=== PATIENT | male | born 1950 | race Caucasian/White ===

== ENCOUNTER 2019-12-16 08:59 | Emergency (ER) | payer MEDICARE, OTHER ==
[2019-12-16 09:03] VITALS: TEMP 98
[2019-12-16] MEDS ORDERED: SODIUM CHLORIDE 0.9% 500 ML 500 ML IV STA (09:29)
[2019-12-16 09:39] LABS: Anisocytosis Slight; Basophils % (A) 0 %; Eosinophils # (A) 0.1 k/uL (0-0.7); Eosinophils % (A) 2 %; HCT 41.5 % (39.0-53.0); HGB 13.7 gm/dL (13.0-17.5); Lymphocytes # (A) 1.7 k/uL (1.0-4.8); Lymphocytes % (A) 25 %; MCH 33.8 pg (25.0-35.0); MCHC 32.9 g/dL (31.0-37.0); MCV 102.8 fL (80.0-100.0); Macrocytosis Moderate; Mean Platelet Volume 8.4; Monocytes # (A) 0.3 k/uL (0-1.0); Monocytes % (A) 4 %; Neutrophils # (A) 4.6 k/uL (1.3-7.7); Neutrophils % (A) 67 %; Platelet Count 252 k/uL (150-450); RBC 4.03 m/uL (4.30-5.90); RDW 16.3 % (11.5-15.5); WBC 6.9 k/uL (3.8-10.6)
--- NOTE | 2019-12-16 09:40 | ED ---
General Adult HPI - General Chief complaint: GI Bleed Stated complaint: Vomiting Blood Time Seen by Provider: 12/16/19 09:12 Source: patient, RN notes reviewed Mode of arrival: ambulatory Limitations: no limitations - History of Present Illness Initial comments: 69-year-old male with a past medical history of CAD, hyperlipidemia presents to the emergency department for a chief complaint of hemoptysis. Patient had a heart catheterization 1 week ago. Patient currently on Plavix and has been for years. Patient states that he felt like he was in congestion in his lungs and started coughing last night. Patient states he coughed up phlegm. After a few coughs he coughed up a small coin-sized bright red blood clot. Patient states this happened a couple times. Patient states that he became concerned and came to the emergency room. He does state that he was told by his doctor there is "a shadow" behind his heart and he is scheduled for a computed tomography scan on Saturday.Patient has no other complaints at this time including shortness of br eath, chest pain, abdominal pain, nausea or vomiting, headache, or visual changes. - Related Data Home Medications Medication Instructions Recorded Confirmed Aspirin EC [Ecotrin Low Dose] 81 mg PO HS 12/16/19 12/16/19 Atorvastatin [Lipitor] 20 mg PO HS 12/16/19 12/16/19 Clopidogrel [Plavix] 75 mg PO DAILY 12/16/19 12/16/19 Ferrous Sulfate [Feosol] 325 mg PO DAILY 12/16/19 12/16/19 Furosemide [Lasix] 40 mg PO Q48H 12/16/19 12/16/19 Isosorbide Mononitrate [Isosorbide 30 mg PO DAILY 12/16/19 12/16/19 Mononitrate ER] Losartan [Cozaar] 50 mg PO DAILY 12/16/19 12/16/19 Metoprolol Tartrate [Lopressor] 100 mg PO BID 12/16/19 12/16/19 Multivitamins, Thera [Multivitamin 1 tab PO DAILY 12/16/19 12/16/19 (formulary)] Pantoprazole [Protonix] 40 mg PO DAILY 12/16/19 12/16/19 Allergies Allergy/AdvReac Type Severity Reaction Status Date / Time No Known Allergies Allergy Verified 12/16/19 09:42 Review of Systems ROS Statement: Those systems with pertinent positive or pertinent negative responses have been documented in the HPI. ROS Other: All systems not noted in ROS Statement are negative. Past Medical History Past Medical History: Coronary Artery Disease (CAD), Hyperlipidemia History of Any Multi-Drug Resistant Organisms: None Reported Past Surgical History: Heart Catheterization With Stent Past Psychological History: No Psychological Hx Reported Smoking Status: Former smoker Past Alcohol Use History: Occasional Past Drug Use History: None Reported General Exam Limitations: no limitations General appearance: alert, in no apparent distress Head exam: Present: atraumatic, normocephalic, normal inspection Eye exam: Present: normal appearance, PERRL, EOMI. Absent: scleral icterus, conjunctival injection, periorbital swelling ENT exam: Present: normal exam, mucous membranes moist Neck exam: Present: normal inspection, full ROM. Absent: tenderness, meningismus, lymphadenopathy Respiratory exam: Present: normal lung sounds bilaterally. Absent: respiratory distress, wheezes, rales, rhonchi, stridor Cardiovascular Exam: Present: regular rate, normal rhythm, normal heart sounds. Absent: systolic murmur, diastolic murmur, rubs, gallop, clicks GI/Abdominal exam: Present: soft, normal bowel sounds. Absent: distended, tenderness, guarding, rebound, rigid Course Vital Signs 12/16/19 12/16/19 09:00 09:17 Temperature 98.0 F Pulse Rate 72 Respiratory 18 18 Rate Blood Pressure 141/71 O2 Sat by Pulse 97 Oximetry Medical Decision Making - Medical Decision Making Vitals are stable. CBC CMP is unremarkable. Patient has minimal elevation in lipase. Troponin within normal limits at 0.028. Slight bump is likely related to heart catheterization that was done about one week ago. Chest CT shows a right hilar mass extending along the peritracheal location with right pleural effusion and emphysema. It appears that right mainstem bronchus is encased in narrow the. There is adherent to the mediastinum with mediastinal invasion with mass effect on the superior vena cava and extension along the right peritracheal region. Patient will be admitted for pulmonology consultation and further management. - Lab Data Result diagrams: 12/16/19 09:18 12/16/19 09:18 Lab Results 12/16/19 12/16/19 12/16/19 Range/Units 09:18 09:18 09:18 WBC 6.9 (3.8-10.6) k/uL RBC 4.03 L (4.30-5.90) m/uL Hgb 13.7 (13.0-17.5) gm/dL Hct 41.5 (39.0-53.0) % MCV 102.8 H (80.0-100.0) fL MCH 33.8 (25.0-35.0) pg MCHC 32.9 (31.0-37.0) g/dL RDW 16.3 H (11.5-15.5) % Plt Count 252 (150-450) k/uL Neutrophils % 67 % Lymphocytes % 25 % Monocytes % 4 % Eosinophils % 2 % Basophils % 0 % Neutrophils # 4.6 (1.3-7.7) k/uL Lymphocytes # 1.7 (1.0-4.8) k/uL Monocytes # 0.3 (0-1.0) k/uL Eosinophils # 0.1 (0-0.7) k/uL Basophils # 0.0 (0-0.2) k/uL Anisocytosis Slight Macrocytosis Moderate PT 10.5 (9.0-12.0) sec INR 1.0 (<1.2) APTT 23.4 (22.0-30.0) sec Sodium 137 (137-145) mmol/L Potassium 4.7 (3.5-5.1) mmol/L Chloride 103 (98-107) mmol/L Carbon Dioxide 26 (22-30) mmol/L Anion Gap 8 mmol/L BUN 18 (9-20) mg/dL Creatinine 1.14 (0.66-1.25) mg/dL Est GFR (CKD-EPI)AfAm 75 (>60 ml/min/1.73 sqM) Est GFR (CKD-EPI)NonAf 65 (>60 ml/min/1.73 sqM) Glucose 117 H (74-99) mg/dL Calcium 9.1 (8.4-10.2) mg/dL Total Bilirubin 1.3 (0.2-1.3) mg/dL AST 56 (17-59) U/L ALT 59 H (4-49) U/L Alkaline Phosphatase 92 (38-126) U/L Troponin I (0.000-0.034) ng/mL NT-Pro-B Natriuret Pep pg/mL Total Protein 7.5 (6.3-8.2) g/dL Albumin 4.2 (3.5-5.0) g/dL Lipase 437 H (23-300) U/L 12/16/19 12/16/19 Range/Units 09:18 09:18 WBC (3.8-10.6) k/uL RBC (4.30-5.90) m/uL Hgb (13.0-17.5) gm/dL Hct (39.0-53.0) % MCV (80.0-100.0) fL MCH (25.0-35.0) pg MCHC (31.0-37.0) g/dL RDW (11.5-15.5) % Plt Count (150-450) k/uL Neutrophils % % Lymphocytes % % Monocytes % % Eosinophils % % Basophils % % Neutrophils # (1.3-7.7) k/uL Lymphocytes # (1.0-4.8) k/uL Monocytes # (0-1.0) k/uL Eosinophils # (0-0.7) k/uL Basophils # (0-0.2) k/uL Anisocytosis Macrocytosis PT (9.0-12.0) sec INR (<1.2) APTT (22.0-30.0) sec Sodium (137-145) mmol/L Potassium (3.5-5.1) mmol/L Chloride (98-107) mmol/L Carbon Dioxide (22-30) mmol/L Anion Gap mmol/L BUN (9-20) mg/dL Creatinine (0.66-1.25) mg/dL Est GFR (CKD-EPI)AfAm (>60 ml/min/1.73 sqM) Est GFR (CKD-EPI)NonAf (>60 ml/min/1.73 sqM) Glucose (74-99) mg/dL Calcium (8.4-10.2) mg/dL Total Bilirubin (0.2-1.3) mg/dL AST (17-59) U/L ALT (4-49) U/L Alkaline Phosphatase (38-126) U/L Troponin I 0.028 (0.000-0.034) ng/mL NT-Pro-B Natriuret Pep 439 pg/mL Total Protein (6.3-8.2) g/dL Albumin (3.5-5.0) g/dL Lipase (23-300) U/L Disposition Clinical Impression: Lung mass, Hemoptysis Disposition: ADMITTED IP TO THIS HOSP Condition: Fair Is patient prescribed a controlled substance at d/c from ED?: No Referrals: Sharad Cantu MD [Primary Care Provider] - 1-2 days Time of Disposition: 10:48
[2019-12-16 09:48] LABS: Albumin 4.2 g/dL (3.5-5.0); Calcium 9.1 mg/dL (8.4-10.2); Potassium 4.7 mmol/L (3.5-5.1); Total Bilirubin 1.3 mg/dL (0.2-1.3); Total Protein 7.5 g/dL (6.3-8.2)
[2019-12-16 09:50] LABS: Partial Thromboplastin Time 23.4 sec (22.0-30.0); Prothrombin Time 10.5 sec (9.0-12.0)
--- NOTE | 2019-12-16 10:28 | CT ---
EXAMINATION TYPE: CT chest angio for PE DATE OF EXAM: 12/16/2019 COMPARISON: Chest x-ray 12/08/2019 HISTORY: Hemoptysis, PE CT DLP: 667.6 mGycm Automated exposure control for dose reduction was used. CONTRAST: CT Chest for pulmonary embolism performed with without and with IV Contrast, patient injected with 10 0 ml mL of Isovue 370. FINDINGS: LUNGS: The lungs are remarkable for right hilar soft tissue mass, there is encasement of right upper lobe segmental pulmonary artery appears occluded, the right mainstem bronchus is also encased and poly rowed. Mass measures approximately 7 cm in cephalad to caudal dimension by 6.5 cm in transverse dimen cheikh by 6.1 cm in AP dimension, there are spiculated margins, there is adherence to the mediastinum, mediastinal invasion with mass effect on the superior vena cava and extension along the right paratra cheal region There is a right pleural effusion is some associated atelectasis. Emphysematous changes are present within the lungs. The tracheobronchial tree is patent. MEDIASTINUM: There is satisfactory enhancement of the pulmonary artery and its branches, there is no CT evidence for pulmonary embolism. There is subcarinal adenopathy, retrocaval pretracheal nodes als o enlarged. There are coronary calcifications No pericardial effusion is seen. AORTA: No additional significant abnormality is seen. OTHER: Arthropathy noted in the shoulders.. IMPRESSION: Right hilar mass extending along the paratracheal location correlates with the plain film findings, r ight pleural effusion, emphysema
[2019-12-16] MEDS ORDERED: NALOXONE 0.4 MG/ML 1 ML VIAL IV PRN (10:49)
[2019-12-16] MEDS ORDERED: SODIUM CHLORIDE 0.9% 1,000 ML IV SCH (11:00)
--- NOTE | 2019-12-16 12:07 | ED ---
Medical Decision Making - Medical Decision Making Dr. Tobias saw patient and recommended discharge home. He will stop Plavix until Dr. Tobias speaks with his asbestos remover. He will follow up with Dr. Tobias for biopsy since we cannot do biopsy as patient has been on Plavix. Patient prefers to go home instead of be discharged. Dr. Nielsen spoke with Dr. Ojeda who is aware patient is being discharged. - Lab Data Result diagrams: 12/16/19 09:18 12/16/19 09:18 Lab Results 12/16/19 12/16/19 12/16/19 Range/Units 09:18 09:18 09:18 WBC 6.9 (3.8-10.6) k/uL RBC 4.03 L (4.30-5.90) m/uL Hgb 13.7 (13.0-17.5) gm/dL Hct 41.5 (39.0-53.0) % MCV 102.8 H (80.0-100.0) fL MCH 33.8 (25.0-35.0) pg MCHC 32.9 (31.0-37.0) g/dL RDW 16.3 H (11.5-15.5) % Plt Count 252 (150-450) k/uL Neutrophils % 67 % Lymphocytes % 25 % Monocytes % 4 % Eosinophils % 2 % Basophils % 0 % Neutrophils # 4.6 (1.3-7.7) k/uL Lymphocytes # 1.7 (1.0-4.8) k/uL Monocytes # 0.3 (0-1.0) k/uL Eosinophils # 0.1 (0-0.7) k/uL Basophils # 0.0 (0-0.2) k/uL Anisocytosis Slight Macrocytosis Moderate PT 10.5 (9.0-12.0) sec INR 1.0 (<1.2) APTT 23.4 (22.0-30.0) sec Sodium 137 (137-145) mmol/L Potassium 4.7 (3.5-5.1) mmol/L Chloride 103 (98-107) mmol/L Carbon Dioxide 26 (22-30) mmol/L Anion Gap 8 mmol/L BUN 18 (9-20) mg/dL Creatinine 1.14 (0.66-1.25) mg/dL Est GFR (CKD-EPI)AfAm 75 (>60 ml/min/1.73 sqM) Est GFR (CKD-EPI)NonAf 65 (>60 ml/min/1.73 sqM) Glucose 117 H (74-99) mg/dL Calcium 9.1 (8.4-10.2) mg/dL Total Bilirubin 1.3 (0.2-1.3) mg/dL AST 56 (17-59) U/L ALT 59 H (4-49) U/L Alkaline Phosphatase 92 (38-126) U/L Troponin I (0.000-0.034) ng/mL NT-Pro-B Natriuret Pep pg/mL Total Protein 7.5 (6.3-8.2) g/dL Albumin 4.2 (3.5-5.0) g/dL Lipase 437 H (23-300) U/L 12/16/19 12/16/19 Range/Units 09:18 09:18 WBC (3.8-10.6) k/uL RBC (4.30-5.90) m/uL Hgb (13.0-17.5) gm/dL Hct (39.0-53.0) % MCV (80.0-100.0) fL MCH (25.0-35.0) pg MCHC (31.0-37.0) g/dL RDW (11.5-15.5) % Plt Count (150-450) k/uL Neutrophils % % Lymphocytes % % Monocytes % % Eosinophils % % Basophils % % Neutrophils # (1.3-7.7) k/uL Lymphocytes # (1.0-4.8) k/uL Monocytes # (0-1.0) k/uL Eosinophils # (0-0.7) k/uL Basophils # (0-0.2) k/uL Anisocytosis Macrocytosis PT (9.0-12.0) sec INR (<1.2) APTT (22.0-30.0) sec Sodium (137-145) mmol/L Potassium (3.5-5.1) mmol/L Chloride (98-107) mmol/L Carbon Dioxide (22-30) mmol/L Anion Gap mmol/L BUN (9-20) mg/dL Creatinine (0.66-1.25) mg/dL Est GFR (CKD-EPI)AfAm (>60 ml/min/1.73 sqM) Est GFR (CKD-EPI)NonAf (>60 ml/min/1.73 sqM) Glucose (74-99) mg/dL Calcium (8.4-10.2) mg/dL Total Bilirubin (0.2-1.3) mg/dL AST (17-59) U/L ALT (4-49) U/L Alkaline Phosphatase (38-126) U/L Troponin I 0.028 (0.000-0.034) ng/mL NT-Pro-B Natriuret Pep 439 pg/mL Total Protein (6.3-8.2) g/dL Albumin (3.5-5.0) g/dL Lipase (23-300) U/L Disposition Clinical Impression: Lung mass, Hemoptysis Disposition: HOME SELF-CARE Condition: Fair Is patient prescribed a controlled substance at d/c from ED?: No Time of Disposition: 12:07
--- NOTE | 2019-12-16 12:32 | P.CNPUL ---
History of Present Illness Consult date: 12/16/19 Reason for consult: lung mass History of present illness: 69-year-old male patient who presented to emergency department today with hemoptysis. The patient saw me in the office approximately a week ago and a chest x-ray was done the office showed right hilar prominence. Based on that, I scheduled this patient to have an outpatient CAT scan of the chest. Meanwhile, the patient started having hemoptysis small amounts and he coughed out bloody mucus and for that reason the patient came into the emergency department today and the patient underwent a CAT scan of the chest that showed a mass measuring 7 cm in size by 6.5 cm in size with spiculated margins in the right upper lobe area adherent to the mediastinum causing some yeast on invasion and mass effect on the SVC and extension into the right paratracheal region. There is also smal l right-sided pleural effusion. His background emphysema. Note that the patient underwent a recent cardiac catheterization and he is currently on examination of aspirin and Plavix. He underwent stenting of the LAD. His fishery biologist Dr. Dwayne Langston. This patient's is known to have an extensive cardiac history. He is known to have CAD and he has undergone multiple cardiac catheterizations the past and he ultimately required a coronary artery bypass surgery in 2017. Subsequently, he started complaining of some exertional dyspnea. He another cardiac catheterization and this was done recently and the patient was found to have some disease in the LAD and he is scheduled to underwent another cardiac catheterization with stenting by Dr. Dwayne Langston. He is currently on a combination of aspirin and Plavix. I reviewed the records and the patient has had an echocardiogram that showed an ejection fraction of 42% along with some mild aortic sclerosis without stenosis. There is some mild mitral regurgitation, mild LVH, mild aortic regurgitation. His carotid Dopplers showed nonocclusive disease. He had an abnormal chest x-ray back in 2017 showing some atelectasis in the left lower lobe. I repeated the chest x-ray today in my office and there is obvious right suprahilar fullness consistent with an underlying mass. Note that he has an extensive smoking history and he quit smoking back in 2013 Review of Systems Constitutional: Denies chills, Denies fever Eyes: denies as per HPI, denies blurred vision, denies bulging eye, denies decreased vision, denies diplopia, denies discharge, denies dry eye, denies irritation, denies itching, denies pain, denies photophobia, denies loss of peripheral vision, denies loss of vision, denies tunnel vision/blind spots Ears: deny: decreased hearing, ear discharge, earache, tinnitus Ears, nose, mouth and throat: Denies headache, Denies sore throat Breasts: absent: as per HPI, gynecomastia Cardiovascular: Reports decreased exercise tolerance, Reports dyspnea on exertion Respiratory: Reports cough, Reports dyspnea, Reports hemoptysis Gastrointestinal: Reports as per HPI Genitourinary: Reports as per HPI Musculoskeletal: Reports as per HPI Musculoskeletal: absent: ankle pain, ankle stiffness, ankle swelling Integumentary: Reports as per HPI Neurological: Reports as per HPI Psychiatric: Reports as per HPI Endocrine: Reports as per HPI Hematologic/Lymphatic: Reports as per HPI Allergic/Immunologic: Reports as per HPI Past Medical History Past Medical History: Coronary Artery Disease (CAD), Chest Pain / Angina, COPD, GERD/Reflux, Hyperlipidemia, Hypertension, Vascular Disorder Additional Past Medical History / Comment(s): Spondylolithiasis L5-S1, back pain, generalized swelling History of Any Multi-Drug Resistant Organisms: None Reported Past Surgical History: Back Surgery, Coronary Bypass/CABG, Heart Catheterization, Heart Catheterization With Stent, Orthopedic Surgery Additional Past Surgical History / Comment(s): 1969 L knee injury with surgery, 1987 vasectomy, 1989 cervical surgery with bont donar from hip, PCI with stents, L shoulder surgery d/t injury, bilateral carpal tunnel releases, 2011 AAA repair, post AAA incision infection/muscle flap, 2013 stent R leg behind knee, 2 lumbar spine surgeries, 2017 CABG-3 vessel Past Anesthesia/Blood Transfusion Reactions: No Reported Reaction Additional Past Anesthesia/Blood Transfusion Reaction / Comment(s): Pt has clausterphobia. Date of Last Stent Placement:: 12/09/19 Cait Cool Past Psychological History: No Psychological Hx Reported Additional Psychological History / Comment(s): Pt rsides with his spouse of 33 yrs. He is independent. Smoking Status: Former smoker Past Alcohol Use History: Occasional Additional Past Alcohol Use History / Comment(s): Pt started smoking in 1973 and over the years was a cigarette smoker 1.5 ppd or cigar smoker-up th 4 a day. Pt quit smoking in 2011. Past Drug Use History: None Reported - Past Family History Father Family Medical History: Cancer Additional Family Medical History / Comment(s): Father of small cell lung cancer. Mother Family Medical History: Cancer Additional Family Medical History / Comment(s): Mother had leukemia. Medications and Allergies Home Medications Medication Instructions Recorded Confirmed Type Aspirin EC [Ecotrin Low Dose] 81 mg PO HS 12/16/19 12/16/19 History Atorvastatin [Lipitor] 20 mg PO HS 12/16/19 12/16/19 History Clopidogrel [Plavix] 75 mg PO DAILY 12/16/19 12/16/19 History Ferrous Sulfate [Feosol] 325 mg PO DAILY 12/16/19 12/16/19 History Furosemide [Lasix] 40 mg PO Q48H 12/16/19 12/16/19 History Isosorbide Mononitrate [Isosorbide 30 mg PO DAILY 12/16/19 12/16/19 History Mononitrate ER] Losartan [Cozaar] 50 mg PO DAILY 12/16/19 12/16/19 History Metoprolol Tartrate [Lopressor] 100 mg PO BID 12/16/19 12/16/19 History Multivitamins, Thera [Multivitamin 1 tab PO DAILY 12/16/19 12/16/19 History (formulary)] Pantoprazole [Protonix] 40 mg PO DAILY 12/16/19 12/16/19 History Allergies Allergy/AdvReac Type Severity Reaction Status Date / Time No Known Allergies Allergy Verified 12/16/19 09:42 Physical Exam Vitals: Vital Signs Temp Pulse Resp BP Pulse Ox 12/16/19 09:17 18 12/16/19 09:00 98.0 F 72 18 141/71 97 Intake and Output 12/15/19 12/16/19 12/16/19 22:59 06:59 14:59 Other: Weight 111.584 kg General Appearance no diaphoresis, no respiratory distress, speech not interrupted by breaths, no dyspnea, no pallor, not cachectic, well nourished, appears well, obesity HEENT no pursed lip breathing, no jugular venous distention, no mucous membrane cyanosis, no perioral cyanosis, mallampati classification: class 1, Mallampati Classification: Class 4 Chest no barrel chest, no retractions, no sternocleidomastoid muscle contractions, no supraclavicular retractions, no intercostal retractions, no prolonged expiratory wheezing, no decreased air movement, no rhonchi, no hyperinflation, (normal) adventitious sounds: rales / crackles: bilaterally: midlung lora, decreased air movement ( scar over the anterior chest area) Heart no right ventricular heave, no distant heart sounds, no s3 gallop, (normal ) jugular vein: jugular venous distention: by 0cm, (normal) jugular vein GI bowel sounds: hyperactive (borborygmi), bowel sounds: diminished or absent (large mid abdominal incision/scar from the previous AAA repair surgery.) Extremities no cyanosis, no clubbing, no edema Neurologic no decreased mental status, no somnolence, no confusion Assisstive Devices: ambulates with no assitive devices Gait and Mobility: gait WNL, full weight bearing Results - Laboratory Findings CBC and BMP: 12/16/19 09:18 12/16/19 09:18 PT/INR, D-dimer PT 10.5 sec (9.0-12.0) 12/16/19 09:18 INR 1.0 (<1.2) 12/16/19 09:18 Abnormal lab findings: Abnormal Labs 12/16/19 12/16/19 09:18 09:18 RBC 4.03 L MCV 102.8 H RDW 16.3 H Glucose 117 H ALT 59 H Lipase 437 H - Diagnostic Findings CT scan - chest: image reviewed Assessment and Plan Plan: 1 large right upper lobe mass with occlusion of the right upper lobe bronchus as evident on the CAT scan of the chest, and the patient has a mass measuring 7 x 6.5 cm in size with spiculated margins adherent to the mediastinum and there is obvious mediastinal invasion a mass effect on the SVC and extension to the right paratracheal area. A small right-sided pleural effusions also seen. This is very much consistent with underlying primary bronchogenic cancer. No clinical signs of SVC syndrome. The patient presented with hemoptysis. He is on a combination of aspirin and Plavix and he has undergone a recent cardiac catheterization and stenting 2 hemoptysis secondary to above 3 exertional dyspnea 4 coronary artery disease with recent cardiac catheterization and stenting insertion, and the patient is post coronary artery bypass surgery that was performed 2017. He was found to have a recent LAD lesion for which he underwent stenting. 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 This is likely secondary to right upper lobe mass and further complicated by the intake of dual antiplatelet agents including aspirin and Plavix. I will see the patient will need a bronchoscopy for airway inspection and biopsy to establish the definite diagnosis. I'm going to discuss is his fishery biologist and asked the patient to stop the Plavix for a few days if possible to have the biopsy done without any major complications or bleeding. If not possible, we'll may be able to do this while the patient is still on Plavix and this obviously will put him at a high risk of bleeding. The fundus will be done after talking to his fishery biologist knowing that he has a fresh stents. I do not see a reason why the patient needs to be kept in the [facility] for now. His hemoptysis is minimal. I asked to come back to the hospital and there is a significant worsening in his hemoptysis. He lives close by in the [place] area. Meanwhile, I'm contacting his fishery biologist and I'm going to set him up for a outpatient bronchoscopy. This will be done as earlier this week or next week. Case discussed with emergency physician. Case discussed with the family. The family is agreeable.
[2019-12-16 12:37] VITALS: BP 140/81; PULSE 65; RESP 16
== END 2019-12-16 12:39 | disposition home or self-care (01) ==
LOC: EC 08:59 → 5NMEDONC 10:49 → UNDOADMIN 10:49 → EC 12:39
DX: J90 Pleural effusion, not elsewhere classified (principal); J43.9 Emphysema, unspecified; R91.8 Other nonspecific abnormal finding of lung field; K92.0 Hematemesis; I25.10 Atherosclerotic heart disease of native coronary artery without angina pectoris; E78.5 Hyperlipidemia, unspecified; Z95.5 Presence of coronary angioplasty implant and graft; Z87.891 Personal history of nicotine dependence; Z79.82 Long term (current) use of aspirin; Z79.02 Long term (current) use of antithrombotics/antiplatelets; Z79.899 Other long term (current) drug therapy
CPT/HCPCS: 36415; 93005; 83880; 80053; 83690; 84484; 85025; 85610; 85730; 71275; 99285; 96360; Q9967

== ENCOUNTER 2019-12-17 11:35 | Day surgery (SDC) | payer MEDICARE, OTHER ==
[~2019-12-17 11:35] MED LIST: ALBUTEROL NEB (CONC) 2.5 MG/0.5 ML INHALATION ONE; LACTATED RINGERS 1,000 ML IV SCH; LIDOCAINE 2% (PF) 20 MG/ML 5 ML VIAL INHALATION ONE; LIDOCAINE VISCOUS 300 MG/15 ML CUP MUCOUS MEM ONE; SODIUM CHLORIDE 0.9% 1,000 ML IV SCH
[2019-12-17 12:27] VITALS: RESP 16
[2019-12-17] MEDS ORDERED: LIDOCAINE 1% (10MG/ML) FOR IV START INTRADERMA ONE (12:27)
[2019-12-17] MEDS ORDERED: PROPOFOL 10 MG/ML 20 ML VIAL IV ONE (14:45)
[2019-12-17] MEDS ORDERED: LIDOCAINE 1% INJ 10MG/ML (20 ML MDV) ONE (14:45)
[2019-12-17] MEDS ORDERED: fentaNYL (PF) 50 MCG/ML 2 ML AMP ONE (14:45)
[2019-12-17] MEDS ORDERED: SUCCINYLCHOLINE CHLORIDE 100 MG/5 ML SYR IV ONE (14:45)
[2019-12-17] MEDS ORDERED: MIDAZOLAM 2 MG/2 ML VIAL ONE (14:45)
--- NOTE | 2019-12-17 15:28 | P.PCN ---
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 The right upper lobe bronchus is near completely occluded with endobronchial tumor. Limited narrowing of the proximal bronchus intermedius was also visualized. Procedure(s) Performed: Flexible bronchoscopy, endobronchial biopsy of the right upper lobe tumor, bronchioloalveolar lavage of the right upper lobe. Anesthesia: MITZY RAMON Surgeon: Eric Tobias Edge Roller #1: Lexy Pablo Estimated Blood Loss (ml): 5 Pathology: other Condition: stable Disposition: same day Operative Findings: This procedure was done and operating room. The procedure was done under general anesthesia. The patient was intubated and placed on a mechanical ventilator by anesthesia. After achieving adequate sedation, and anesthesia, an adapter was tested orotracheal tube and following that the flexible bronchoscope was introduced into the lower trachea. Examination of the distal trachea, and examination of the left side of the lung including the left mainstem bronchus, left upper lobe bronchus, left lower lobe bronchus were all within normal limits and there was no abnormality seen. Bronchoscope was then moved to the right side. Right mainstem bronchus was within normal limits. There was some loose liquidy bloody secretions retained in the distal right mainstem bronchus. The right upper lobe bronchus was near completely occluded with endobronchial tumor. The various segments of the right upper lobe bronchus were not accurate the scene. However, he was obvious that the segments were all infiltrated with tumor as there was significant endobronchial growth and abnormalities with polypoid lesions occupying the airway and the surface of the lesion was quite vascular. The proximal bronchus intermedius was slightly narrowed from the lateral wall. Nevertheless no major anatomic obstruction was noted. Examination of the right middle lobe bronchus and the right lower lobe bronchus and the various segments were all within normal limits. The bronchoscope was then moved to the right upper lobe and under direct visualization, and the bronchial biopsies of the right upper lobe was done. Several biopsies were obtained. No major bleeding was encountered and total amount of bleeding was less than 5 mL. Following that, performed the bronchioloalveolar lavage of the right upper lobe. The right upper lobe was infiltrated with saline with total of 60 mL of fluid was infused and 20 mL was suctioned back. Aspirate was bloody. I completed the procedure. No major bleeding was encountered. The patient was extubated and transferred recovery in stable condition. The patient will be asked to continue the aspirin and Plavix. The patient was asked to contact me back if there is any significant hemoptysis. The source of the hemoptysis in the right upper lobe tumor and the surface of the tumor being vascular. There is no evidence of any acute bleeds. The patient was seen back in the office in a weeks time to discuss the results of the findings.
[2019-12-17 15:38] VITALS: TEMP 96.6
[2019-12-17 16:27] VITALS: BP 131/72; PULSE 64
== END 2019-12-17 16:49 | disposition home or self-care (01) ==
LOC: ORWHC2ENDO 11:35
PROVIDERS: ATTEND Internal Medicine Critical Care Medicine
DX: C34.11 Malignant neoplasm of upper lobe, right bronchus or lung (principal); I25.10 Atherosclerotic heart disease of native coronary artery without angina pectoris; I10 Essential (primary) hypertension; J44.9 Chronic obstructive pulmonary disease, unspecified; E78.5 Hyperlipidemia, unspecified; K21.9 Gastro-esophageal reflux disease without esophagitis; Z88.8 Allergy status to other drugs, medicaments and biological substances; Z95.5 Presence of coronary angioplasty implant and graft; Z79.02 Long term (current) use of antithrombotics/antiplatelets; Z79.899 Other long term (current) drug therapy; Z86.79 Personal history of other diseases of the circulatory system
CPT/HCPCS: 88108; 88305; 87635; 31625; 31624; J2250; J2001; J3010; J0330; J2704; 88341; 88342

== ENCOUNTER → 2019-12-25 | Outpatient (CLI) | payer MEDICARE, OTHER ==
--- NOTE | 2019-12-27 15:48 | PE ---
Nuclear medicine PET/CT HISTORY: Lung nodule, initial Patient received 12.7 mCi F-18 FDG intravenously in delayed scanning was performed from the skull bas e to the mid thighs. Localization and attenuation correction CT scan was performed. Correlation to chest CT dated 12/16/2019 neck and CHEST: There is corresponding hypermetabolic uptake at the level of patient's right hilar ma ss, retrocaval pretracheal node, subcarinal adenopathy. There is no supraclavicular or cervical adeno raysa. Asymmetric uptake at the level of the vocal cord on the left could be indicative of right-side d vocal cord paralysis. There is been some interval development of abnormal increased attenuation and associated hypermetabolic uptake in the right upper lobe anteriorly, possibly related to postobstruc tive changes or local spread of carcinoma, the interstitium is increased, there is nodularity present in the right upper lobe which is not seen on prior exam and there is some associated uptake present. Patient's right pleural effusion is again seen but is small. There are dense coronary artery calcifi cations present. ABDOMEN: There is no evident adrenal mass or retroperitoneal adenopathy. No evident liver mass or asc ites, no suspicious uptake. Extensive diverticular change noted in the sigmoid colon. Osseous structures: Postop changes are noted to the lumbar spine. There is some streak artifact prese nt. No suspicious uptake. IMPRESSION: There is been some interval progression in abnormal nodularity, with associated hypermeta bolic uptake as compared to prior chest CT. Additional findings above.
== END | disposition home or self-care (01) ==
LOC: RADPETMAIN 11:50
PROVIDERS: ATTEND Internal Medicine Critical Care Medicine
DX: R91.8 Other nonspecific abnormal finding of lung field (principal); I25.10 Atherosclerotic heart disease of native coronary artery without angina pectoris; J90 Pleural effusion, not elsewhere classified; K57.30 Diverticulosis of large intestine without perforation or abscess without bleeding; Z98.890 Other specified postprocedural states
CPT/HCPCS: 78815; A9552

== ENCOUNTER → 2019-12-28 | Outpatient (CLI) | payer MEDICARE, OTHER ==
--- NOTE | 2019-12-28 09:48 | CT ---
EXAMINATION TYPE: CT brain w con DATE OF EXAM: 12/28/2019 COMPARISON: None HISTORY: Lung cancer CT DLP: 1159 mGycm Automated exposure control for dose reduction was used. CONTRAST: Performed with IV Contrast, patient injected with 100 mL of Isovue 300. FINDINGS: No distinct enhancing lesions are seen. If symptoms persist consider MRI. The ventricles basal cister ns and sulci overlying the cerebral convexities demonstrate mild enlargement not unusual for this pat ient's age group. Bony calvarium is intact. IMPRESSION: NO DISTINCT ENHANCING LESIONS APPRECIATED AT THIS TIME.
== END | disposition home or self-care (01) ==
LOC: RADCTMAIN 08:24
PROVIDERS: ATTEND Internal Medicine Hematology & Oncology
DX: C34.11 Malignant neoplasm of upper lobe, right bronchus or lung (principal)
CPT/HCPCS: 82565; 84520; 70460; 36415; Q9967

== ENCOUNTER 2020-03-05 17:22 | Inpatient (IN) | payer MEDICARE, OTHER ==
--- NOTE | 2020-03-05 17:51 | ED ---
General Adult HPI - General Chief complaint: Fever Stated complaint: fever/lung cancer Time Seen by Provider: 03/05/20 17:50 Source: patient, family Mode of arrival: ambulatory Limitations: no limitations - History of Present Illness Initial comments: Patient presents the ED with his for evaluation. Patient states that he has developed a fever today. Patient also states that he has had right calf pain and swelling for the past 2-3 days. Patient's states that the patient was undergoing chemotherapy, as well as radiation therapy, for treatment of lung cancer, and she states that his last chemotherapy treatment was 15 days ago. Patient denies taking any antipyretic medication today. Patient admits to having mild, chronic and unchanged dyspnea. Patient denies having any other symptoms or complaints. Patient denies trauma or injury, headache, focal numbness/weakness/neuro deficit, neck pain or stiffness, otalgia, sore throat, nasal congestion or discharge, cough or cold symptoms, chest pain, dizziness, abdominal pain, nausea/vomiting/diarrhea, dysuria/urinary frequency/hematuria/urinary symptoms, or any other symptoms or complaints. - Related Data Home Medications Medication Instructions Recorded Confirmed Aspirin EC [Ecotrin Low Dose] 81 mg PO HS 12/16/19 12/17/19 Atorvastatin [Lipitor] 20 mg PO HS 12/16/19 12/17/19 Clopidogrel [Plavix] 75 mg PO DAILY 12/16/19 12/17/19 Ferrous Sulfate [Feosol] 325 mg PO DAILY 12/16/19 12/17/19 Furosemide [Lasix] 40 mg PO Q48H 12/16/19 12/17/19 Isosorbide Mononitrate [Isosorbide 30 mg PO DAILY 12/16/19 12/17/19 Mononitrate ER] Losartan [Cozaar] 50 mg PO DAILY 12/16/19 12/17/19 Metoprolol Tartrate [Lopressor] 100 mg PO BID 12/16/19 12/17/19 Multivitamins, Thera [Multivitamin 1 tab PO DAILY 12/16/19 12/17/19 (formulary)] Pantoprazole [Protonix] 40 mg PO DAILY 12/16/19 12/17/19 Allergies Allergy/AdvReac Type Severity Reaction Status Date / Time No Known Allergies Allergy Verified 03/05/20 17:29 Review of Systems ROS Statement: Those systems with pertinent positive or pertinent negative responses have been documented in the HPI. ROS Other: All systems not noted in ROS Statement are negative. Past Medical History Past Medical History: Coronary Artery Disease (CAD), Chest Pain / Angina, COPD, GERD/Reflux, Hyperlipidemia, Hypertension, Vascular Disorder Additional Past Medical History / Comment(s): Spondylolithiasis L5-S1, back pain, generalized swelling History of Any Multi-Drug Resistant Organisms: None Reported Past Surgical History: Back Surgery, Coronary Bypass/CABG, Heart Catheteriz ation, Heart Catheterization With Stent, Orthopedic Surgery Additional Past Surgical History / Comment(s): 1969 L knee injury with surgery, 1987 vasectomy, 1989 cervical surgery with bont donar from hip, PCI with stents, L shoulder surgery d/t injury, bilateral carpal tunnel releases, 2011 AAA repair, post AAA incision infection/muscle flap, 2012 stent R leg behind knee, 2 lumbar spine surgeries, 2017 CABG-3 vessel Past Anesthesia/Blood Transfusion Reactions: No Reported Reaction Additional Past Anesthesia/Blood Transfusion Reaction / Comment(s): Pt has clausterphobia. Date of Last Stent Placement:: 12/09/19 Cait Cool Past Psychological History: No Psychological Hx Reported Smoking Status: Former smoker Past Alcohol Use History: Occasional Past Drug Use History: None Reported - Past Family History Father Family Medical History: Cancer Additional Family Medical History / Comment(s): Father of small cell lung cancer. Mother Family Medical History: Cancer Additional Family Medical History / Comment(s): Mother had leukemia. General Exam Limitations: no limitations General appearance: alert, in no apparent distress Head exam: Present: atraumatic, normocephalic Eye exam: Present: normal appearance, EOMI ENT exam: Present: normal oropharynx, mucous membranes moist, TM's normal bilaterally Neck exam: Present: other (Trachea is in midline). Absent: tenderness, meningismus Respiratory exam: Present: normal lung sounds bilaterally. Absent: respiratory distress, wheezes, rales, rhonchi Cardiovascular Exam: Present: normal rhythm, tachycardia, normal heart sounds, other (Normal radial pulses bilaterally) GI/Abdominal exam: Present: soft. Absent: distended, tenderness, guarding Extremities exam: Present: full ROM, other (Mild right calf swelling and tenderness; no right lower extremity erythema, warmth, open wound or crepitation is appreciated; negative Homans sign bilaterally). Absent: pedal edema Neurological exam: Present: alert, oriented X3. Absent: motor sensory deficit Skin exam: Present: warm, dry, intact, normal color Course Vital Signs 03/05/20 03/05/20 03/05/20 17:25 18:57 19:32 Temperature 101.2 F H 102.3 F H Pulse Rate 120 H 105 H 112 H Respiratory 20 22 20 Rate Blood Pressure 131/91 116/97 109/61 O2 Sat by Pulse 100 95 93 L Oximetry 03/05/20 20:23 Temperature 99.3 F Pulse Rate 103 H Respiratory 20 Rate Blood Pressure 109/61 O2 Sat by Pulse 96 Oximetry - Reevaluation(s) Reevaluation #1: 03/05/20 20:34 Case, H&P and test results were discussed with Dr. Swift. He accepts hospital admission. He recommends oncology consultation. He recommends anticoagulation with IV heparin bolus and drip. He recommends cefepime 1 g IV every 12 hours for treatment of possible pneumonia. He has no further recommendations at this time. 03/05/20 20:40 Patient denies development of any new symptoms while in the ED. Patient remains alert and breathing comfortably. Patient and are aware of the patient's test results and my discussion with Dr. Swift as above. They both agree with hospital admission at this time. Medical Decision Making - Medical Decision Making I suspect that the patient's fever may be secondary to pneumonia given his right upper lobe interstitial infiltrate on chest x-ray. Patient is not leukopenic or neutropenic. Patient is also noted to have an extensive right leg DVT, and he has been started on IV heparin treatment. Patient was given IV cefepime in the ED as well. Dr. Swift has accepted hospital admission. - Lab Data Result diagrams: 03/05/20 18:22 03/05/20 18:22 Lab Results 03/05/20 03/05/20 03/05/20 Range/Units 18:22 18:22 18:22 WBC 4.9 (3.8-10.6) k/uL RBC 2.47 L (4.30-5.90) m/uL Hgb 8.3 L (13.0-17.5) gm/dL Hct 25.5 L (39.0-53.0) % MCV 103.4 H (80.0-100.0) fL MCH 33.6 (25.0-35.0) pg MCHC 32.5 (31.0-37.0) g/dL RDW 18.3 H (11.5-15.5) % Plt Count 206 (150-450) k/uL Neutrophils % 74 % Lymphocytes % 9 % Monocytes % 13 % Eosinophils % 0 % Basophils % 0 % Neutrophils # 3.6 (1.3-7.7) k/uL Lymphocytes # 0.4 L (1.0-4.8) k/uL Monocytes # 0.6 (0-1.0) k/uL Eosinophils # 0.0 (0-0.7) k/uL Basophils # 0.0 (0-0.2) k/uL Hypochromasia Moderate Poikilocytosis Moderate Anisocytosis Slight Macrocytosis Moderate PT (9.0-12.0) sec INR (<1.2) APTT (22.0-30.0) sec Sodium 133 L (137-145) mmol/L Potassium 4.7 (3.5-5.1) mmol/L Chloride 100 (98-107) mmol/L Carbon Dioxide 27 (22-30) mmol/L Anion Gap 6 mmol/L BUN 20 (9-20) mg/dL Creatinine 1.04 (0.66-1.25) mg/dL Est GFR (CKD-EPI)AfAm 84 (>60 ml/min/1.73 sqM) Est GFR (CKD-EPI)NonAf 72 (>60 ml/min/1.73 sqM) Glucose 117 H (74-99) mg/dL Plasma Lactic Acid Osmani 1.5 (0.7-2.0) mmol/L Calcium 8.7 (8.4-10.2) mg/dL Total Bilirubin 1.0 (0.2-1.3) mg/dL AST 27 (17-59) U/L ALT 16 (4-49) U/L Alkaline Phosphatase 70 (38-126) U/L Total Protein 6.0 L (6.3-8.2) g/dL Albumin 3.3 L (3.5-5.0) g/dL Urine Color Urine Appearance (Clear) Urine pH (5.0-8.0) Ur Specific [place] (1.001-1.035) Urine Protein (Negative) Urine Glucose (UA) (Negative) Urine Ketones (Negative) Urine Blood (Negative) Urine Nitrite (Negative) Urine Bilirubin (Negative) Urine Urobilinogen (<2.0) mg/dL Ur Leukocyte Esterase (Negative) Influenza Type A RNA (Not Detectd) Influenza Type B (PCR) (Not Detectd) 03/05/20 03/05/20 03/05/20 Range/Units 18:22 18:22 18:56 WBC (3.8-10.6) k/uL RBC (4.30-5.90) m/uL Hgb (13.0-17.5) gm/dL Hct (39.0-53.0) % MCV (80.0-100.0) fL MCH (25.0-35.0) pg MCHC (31.0-37.0) g/dL RDW (11.5-15.5) % Plt Count (150-450) k/uL Neutrophils % % Lymphocytes % % Monocytes % % Eosinophils % % Basophils % % Neutrophils # (1.3-7.7) k/uL Lymphocytes # (1.0-4.8) k/uL Monocytes # (0-1.0) k/uL Eosinophils # (0-0.7) k/uL Basophils # (0-0.2) k/uL Hypochromasia Poikilocytosis Anisocytosis Macrocytosis PT 13.1 H (9.0-12.0) sec INR 1.3 H (<1.2) APTT 22.2 (22.0-30.0) sec Sodium (137-145) mmol/L Potassium (3.5-5.1) mmol/L Chloride (98-107) mmol/L Carbon Dioxide (22-30) mmol/L Anion Gap mmol/L BUN (9-20) mg/dL Creatinine (0.66-1.25) mg/dL Est GFR (CKD-EPI)AfAm (>60 ml/min/1.73 sqM) Est GFR (CKD-EPI)NonAf (>60 ml/min/1.73 sqM) Glucose (74-99) mg/dL Plasma Lactic Acid Osmani (0.7-2.0) mmol/L Calcium (8.4-10.2) mg/dL Total Bilirubin (0.2-1.3) mg/dL AST (17-59) U/L ALT (4-49) U/L Alkaline Phosphatase (38-126) U/L Total Protein (6.3-8.2) g/dL Albumin (3.5-5.0) g/dL Urine Color Yellow Urine Appearance Clear (Clear) Urine pH 7.5 (5.0-8.0) Ur Specific [place] 1.020 (1.001-1.035) Urine Protein Trace H (Negative) Urine Glucose (UA) Negative (Negative) Urine Ketones Negative (Negative) Urine Blood Negative (Negative) Urine Nitrite Negative (Negative) Urine Bilirubin Negative (Negative) Urine Urobilinogen 4.0 (<2.0) mg/dL Ur Leukocyte Esterase Negative (Negative) Influenza Type A RNA Not Detected (Not Detectd) Influenza Type B (PCR) Not Detected (Not Detectd) - Radiology Data Radiology results: report reviewed (Chest x-ray: No definite acute lung disease, minimal interstitial infiltrate right upper lobe; right lower extremity venous duplex ultrasound: Positive for DVT, proximal femoral vein through proximal calf veins) Disposition Clinical Impression: Acute febrile illness, Right leg DVT, Anemia Narrative: Possible pneumonia Disposition: ADMITTED IP TO THIS HOSP Condition: Stable Is patient prescribed a controlled substance at d/c from ED?: No Referrals: Sharad Cantu MD [Primary Care Provider] - 1-2 days Time of Disposition: 20:42
[2020-03-05] MEDS ORDERED: ACETAMINOPHEN TAB 500 MG TAB PO STA (18:01)
[2020-03-05 18:32] LABS: Anisocytosis Slight; Basophils % (A) 0 %; Eosinophils % (A) 0 %; HCT 25.5 % (39.0-53.0); HGB 8.3 gm/dL (13.0-17.5); Hypochromasia Moderate; Lymphocytes # (A) 0.4 k/uL (1.0-4.8); Lymphocytes % (A) 9 %; MCH 33.6 pg (25.0-35.0); MCHC 32.5 g/dL (31.0-37.0); MCV 103.4 fL (80.0-100.0); Macrocytosis Moderate; Mean Platelet Volume 7.5; Monocytes # (A) 0.6 k/uL (0-1.0); Monocytes % (A) 13 %; Neutrophils # (A) 3.6 k/uL (1.3-7.7); Neutrophils % (A) 74 %; Platelet Count 206 k/uL (150-450); Poikilocytosis Moderate; RBC 2.47 m/uL (4.30-5.90); RDW 18.3 % (11.5-15.5); WBC 4.9 k/uL (3.8-10.6)
[2020-03-05 18:40] LABS: INR 1.3 (<1.2); Partial Thromboplastin Time 22.2 sec (22.0-30.0); Prothrombin Time 13.1 sec (9.0-12.0)
[2020-03-05 18:43] LABS: Albumin 3.3 g/dL (3.5-5.0); Calcium 8.7 mg/dL (8.4-10.2); Potassium 4.7 mmol/L (3.5-5.1)
--- NOTE | 2020-03-05 18:57 | XR ---
EXAMINATION TYPE: XR chest 2V DATE OF EXAM: 03/05/2020 COMPARISON: 12/08/2019 HISTORY: Fever TECHNIQUE: FINDINGS: There is no heart failure nor confluent pneumonic infiltrate. Costophrenic angles are clear . There is no pleural effusion. The bony thorax is intact. There are chest leads. IMPRESSION: No definite acute lung disease. Minimal interstitial infiltrate right upper lobe. There i s decrease in the right pulmonary hilum compared to old exam.
[2020-03-05 19:09] LABS: Appearance,Urine Clear (Clear); Bilirubin,Urine Negative (Negative); Blood,Urine Negative (Negative); Color,Urine Yellow; Glucose,Urine (UA) Negative (Negative); Ketones,Urine Negative (Negative); Leukocyte Esterase,Urine Negative (Negative); Nitrite,Urine Negative (Negative); PH, Urine 7.5 (5.0-8.0); Protein,Urine Trace (Negative)
[2020-03-05] MEDS ORDERED: IBUPROFEN 600 MG TAB PO STA (19:36)
--- NOTE | 2020-03-05 19:42 | US ---
EXAMINATION TYPE: US venous doppler duplex LE RT DATE OF EXAM: 03/05/2020 6:27 PM COMPARISON: NONE CLINICAL HISTORY: right calf pain/swelling. Right leg swelling x couple days, patient on blood thinne rs SIDE PERFORMED: Right TECHNIQUE: The lower extremity deep venous system is examined utilizing real time linear array sonog kacey with graded compression, doppler sonography and color-flow sonography. VESSELS IMAGED: External Iliac Vein (EIV) Common Femoral Vein Deep Femoral Vein Greater Saphenous Vein * Femoral Vein Popliteal Vein Small Saphenous Vein * Proximal Calf Veins (* superficial vessels) Right Leg: Positive for DVT, proximal femoral vein through proximal calf veins IMPRESSION: There is evidence of acute deep vein thrombosis in the femoral and popliteal and tibial v eins.
[2020-03-05] MEDS ORDERED: ENOXAPARIN 100 MG/ML SYRINGE SQ STA (20:23)
[2020-03-05] MEDS ORDERED: HEPARIN SODIUM,PORCINE 10,000 UNIT/ML 1 ML VIAL IV ONE (20:36)
[2020-03-05] MEDS ORDERED: HEPARIN SODIUM,PORCINE 5,000 UNIT/ML 1 ML VIAL IV PRN (20:36)
[2020-03-05] MEDS ORDERED: CEFEPIME 1 GM in SODIUM CHLORIDE 0.9% 50 ML IVPB STA (20:36)
[2020-03-05] MEDS: HEPARIN SOD,PORK IN 0.45% NACL 25,000 UNIT in 0.45% NACL 1 250ML.BAG IV SCH (20:53)
[2020-03-05] MEDS: ATORVASTATIN 20 MG TAB PO SCH (22:43)
[2020-03-05] MEDS: ASPIRIN 81 MG PO SCH (22:43)
[2020-03-05] MEDS: METOPROLOL TARTRATE 50 MG TAB PO SCH (22:43)
[2020-03-05] MEDS: HYDROcodone/APAP 15 ML SOLUTION PO PRN (22:43)
[2020-03-06 03:38] LABS: Albumin 2.9 g/dL (3.5-5.0); Calcium 8.5 mg/dL (8.4-10.2); Potassium 3.9 mmol/L (3.5-5.1); Total Bilirubin 0.8 mg/dL (0.2-1.3); Total Protein 5.7 g/dL (6.3-8.2)
[2020-03-06 03:46] LABS: Anisocytosis Slight; HCT 25.1 % (39.0-53.0); HGB 7.9 gm/dL (13.0-17.5); Hypochromasia Moderate; MCH 32.8 pg (25.0-35.0); MCHC 31.6 g/dL (31.0-37.0); Macrocytosis Moderate; Mean Platelet Volume 7.5; Platelet Count 190 k/uL (150-450); Poikilocytosis Moderate; RBC 2.42 m/uL (4.30-5.90); WBC 3.5 k/uL (3.8-10.6)
[2020-03-06 04:58] LABS: Band Neutrophils % 7 %; Eosinophils # (M) 0.04 k/uL (0-0.7); Lymphocytes # (M) 0.95 k/uL (1.0-4.8); Monocytes # (M) 0.28 k/uL (0-1.0); Neutrophils % (M) 57 %; Nucleated Red Blood Cells 0 /100 WBC (0-0); Total Cells Counted 100
[2020-03-06 04:59] LABS: Polychromasia Present
[2020-03-06] MEDS ORDERED: LOSARTAN 50 MG TAB PO SCH (09:00)
[2020-03-06] MEDS ORDERED: ISOSORBIDE MONONITRATE ER 30 MG TAB.ER.24H PO SCH (09:00)
[2020-03-06] MEDS: LOSARTAN 25 MG TAB PO SCH (10:32)
[2020-03-06] MEDS: MULTIVITAMINS, THERA 1 EACH TAB PO SCH (10:32)
[2020-03-06] MEDS: METOPROLOL TARTRATE 50 MG TAB PO SCH ×2 (10:32→20:41)
[2020-03-06] MEDS: PANTOPRAZOLE 40 MG TABLET PO SCH (10:32)
[2020-03-06] MEDS: FERROUS SULFATE 325 MG TAB PO SCH (10:32)
[2020-03-06] MEDS: CLOPIDOGREL 75 MG TAB PO SCH (10:32)
[2020-03-06] MEDS: FUROSEMIDE 40 MG TAB PO SCH (10:32)
[2020-03-06] MEDS: HEPARIN SOD,PORK IN 0.45% NACL 25,000 UNIT in 0.45% NACL 1 250ML.BAG IV SCH (10:41)
[2020-03-06] MEDS: CEFEPIME 1 GM in SODIUM CHLORIDE 0.9% 50 ML IVPB SCH ×2 (10:41→17:45)
--- NOTE | 2020-03-06 11:29 | P.CONS ---
History of Present Illness - Reason for Consult Consult date: 03/06/20 Right lower extremity DVT. Non-small cell lung cancer status post chemorad - History of Present Illness The patient is a 69-year-old white male, known to our service. He was diagnosed with non-small cell lung cancer, moderately differentiated adenocarcinoma, and 12/20. The patient appeared to have stage III disease with mediastinal adenopathy. He was treated with chemoradiation, completing treatment just about 2 weeks ago. Exact chemotherapy regimen is not known to me at this time. The patient was supposed to have restaging studies in another 2-3 weeks. The patient had developed fever at home, of 101+. He therefore came into the emergency room. He was noted to have a right lower extremity swelling with Do pplers showing clot extending from the proximal femoral down to the proximal calf veins. He was therefore admitted for further management. He denied any prior history of DVT or PE. Review of Systems Constitutional: Reports fatigue Eyes: denies blurred vision, denies pain Ears: deny: decreased hearing, ear discharge, earache, tinnitus Ears, nose, mouth and throat: Reports odynophagia, Denies headache, Denies sore throat Cardiovascular: Reports decreased exercise tolerance Respiratory: Reports as per HPI, Reports congestion Gastrointestinal: Denies abdominal pain, Denies diarrhea, Denies nausea, Denies vomiting Genitourinary: Reports as per HPI Musculoskeletal: Reports as per HPI (Right lower extremity swelling), Denies myalgias Integumentary: Denies pruritus, Denies rash Neurological: Denies numbness, Denies weakness Psychiatric: Denies anxiety, Denies depression Endocrine: Denies fatigue, Denies weight change Hematologic/Lymphatic: Reports as per HPI Past Medical History Past Medical History: Coronary Artery Disease (CAD), Chest Pain / Angina, COPD, GERD/Reflux, Hyperlipidemia, Hypertension, Vascular Disorder Additional Past Medical History / Comment(s): Spondylolithiasis L5-S1, back pain, generalized swelling History of Any Multi-Drug Resistant Organisms: None Reported Past Surgical History: Back Surgery, Coronary Bypass/CABG, Heart Catheterization, Heart Catheterization With Stent, Orthopedic Surgery Additional Past Surgical History / Comment(s): 1969 L knee injury with surgery, 1987 vasectomy, 1989 cervical surgery with bont donar from hip, PCI with stents, L shoulder surgery d/t injury, bilateral carpal tunnel releases, 2011 AAA repair, post AAA incision infection/muscle flap, 2013 stent R leg behind knee, 2 lumbar spine surgeries, 2017 CABG-3 vessel Past Anesthesia/Blood Transfusion Reactions: No Reported Reaction Additional Past Anesthesia/Blood Transfusion Reaction / Comm: Pt has clausterphobia. Date of Last Stent Placement:: 12/09/19 Cait Cool Past Psychological History: No Psychological Hx Reported Additional Psychological History / Comment(s): Pt rsides with his spouse of 33 yrs. He is independent. Smoking Status: Former smoker Past Alcohol Use History: Occasional Additional Past Alcohol Use History / Comment(s): Pt started smoking in 1973 and over the years was a cigarette smoker 1.5 ppd or cigar smoker-up th 4 a day. Pt quit smoking in 2011. Past Drug Use History: None Reported - Past Family History Father Family Medical History: Cancer Additional Family Medical History / Comment(s): Father of small cell lung cancer. Mother Family Medical History: Cancer Additional Family Medical History / Comment(s): Mother had leukemia. Medications and Allergies Home Medications Medication Instructions Recorded Confirmed Type Aspirin EC [Ecotrin Low Dose] 81 mg PO HS 12/16/19 03/05/20 History Atorvastatin [Lipitor] 20 mg PO HS 12/16/19 03/05/20 History Clopidogrel [Plavix] 75 mg PO DAILY 12/16/19 03/05/20 History Furosemide [Lasix] 40 mg PO Q48H 12/16/19 03/05/20 History Losartan [Cozaar] 25 mg PO DAILY 12/16/19 03/05/20 History Metoprolol Tartrate [Lopressor] 100 mg PO BID 12/16/19 03/05/20 History Multivitamins, Thera [Multivitamin 1 tab PO DAILY 12/16/19 03/05/20 History (formulary)] Pantoprazole [Protonix] 40 mg PO DAILY 12/16/19 03/05/20 History Albuterol Inhaler [Ventolin Hfa 2 puff INHALATION RT-Q4H PRN 03/05/20 03/05/20 History Inhaler] Ferrous Sulfate [Feosol] 325 mg PO DAILY 03/05/20 03/05/20 History Hydrocodone/Acetaminophen 15 ml PO Q8H PRN 03/05/20 03/05/20 History [Hydrocodone/Acetaminophen 7.5-325/15 Ml] Allergies Allergy/AdvReac Type Severity Reaction Status Date / Time No Known Allergies Allergy Verified 03/05/20 21:49 Physical Exam Vitals: Vital Signs Temp Pulse Pulse Resp BP BP Pulse Ox 03/06/20 04:00 97.8 F 77 18 101/58 99 03/06/20 00:00 98.4 F 100 20 104/55 98 03/05/20 20:59 110 H 20 99/39 96 03/05/20 20:53 98.4 F 103 H 20 111/53 98 03/05/20 20:23 99.3 F 103 H 20 109/61 96 03/05/20 19:32 102.3 F H 112 H 20 109/61 93 L 03/05/20 18:57 105 H 22 116/97 95 03/05/20 17:25 101.2 F H 120 H 20 131/91 100 Intake and Output 03/05/20 03/06/20 03/06/20 22:59 06:59 14:59 Intake Total 389.01 317.873 Output Total 200 300 Balance 189.01 17.873 Intake: Intake, IV Titration 149.01 77.873 Amount Heparin Sod,Pork in 0.45% 149.01 77.873 NaCl 25,000 unit In 0.45 % NaCl 1 250ml.bag @ 18 UNITS/KG/HR 18.942 mls/hr IV .[id number] Rx#: [id number] Oral 240 240 Output: Urine 200 300 Other: # Voids 1 # Bowel Movements 1 Weight 105.233 kg 107 kg - Constitutional General appearance: no acute distress - EENT Eyes: EOMI, PERRLA ENT: hearing grossly normal, normal oropharynx - Neck Neck: no lymphadenopathy - Respiratory Respiratory: bilateral: CTA - Cardiovascular Rhythm: regular Heart sounds: normal: S1, S2 - Gastrointestinal General gastrointestinal: normal bowel sounds, soft - Integumentary Integumentary: normal - Neurologic Neurologic: CNII-XII intact - Musculoskeletal Right lower extremity swelling 1+ edema, increased girth Musculoskeletal: generalized weakness, strength equal bilaterally - Psychiatric Psychiatric: A&O x's 3, appropriate affect Results CBC & Chem 7: 03/06/20 02:57 03/06/20 02:57 Labs: Abnormal Lab Results - Last 24 Hours (Table) 03/05/20 03/05/20 03/05/20 Range/Units 18:22 18:22 18:22 WBC (3.8-10.6) k/uL RBC 2.47 L (4.30-5.90) m/uL Hgb 8.3 L (13.0-17.5) gm/dL Hct 25.5 L (39.0-53.0) % MCV 103.4 H (80.0-100.0) fL RDW 18.3 H (11.5-15.5) % Lymphocytes # 0.4 L (1.0-4.8) k/uL Lymphocytes # (Manual) (1.0-4.8) k/uL PT 13.1 H (9.0-12.0) sec INR 1.3 H (<1.2) APTT (22.0-30.0) sec Sodium 133 L (137-145) mmol/L Glucose 117 H (74-99) mg/dL Total Protein 6.0 L (6.3-8.2) g/dL Albumin 3.3 L (3.5-5.0) g/dL Urine Protein (Negative) 03/05/20 03/06/20 03/06/20 Range/Units 18:56 02:57 02:57 WBC 3.5 L (3.8-10.6) k/uL RBC 2.42 L (4.30-5.90) m/uL Hgb 7.9 L (13.0-17.5) gm/dL Hct 25.1 L (39.0-53.0) % MCV 104.0 H (80.0-100.0) fL RDW 18.0 H (11.5-15.5) % Lymphocytes # (1.0-4.8) k/uL Lymphocytes # (Manual) 0.95 L (1.0-4.8) k/uL PT (9.0-12.0) sec INR (<1.2) APTT 150.4 H* (22.0-30.0) sec Sodium (137-145) mmol/L Glucose (74-99) mg/dL Total Protein (6.3-8.2) g/dL Albumin (3.5-5.0) g/dL Urine Protein Trace H (Negative) 03/06/20 Range/Units 02:57 WBC (3.8-10.6) k/uL RBC (4.30-5.90) m/uL Hgb (13.0-17.5) gm/dL Hct (39.0-53.0) % MCV (80.0-100.0) fL RDW (11.5-15.5) % Lymphocytes # (1.0-4.8) k/uL Lymphocytes # (Manual) (1.0-4.8) k/uL PT (9.0-12.0) sec INR (<1.2) APTT (22.0-30.0) sec Sodium 135 L (137-145) mmol/L Glucose 113 H (74-99) mg/dL Total Protein 5.7 L (6.3-8.2) g/dL Albumin 2.9 L (3.5-5.0) g/dL Urine Protein (Negative) Chest x-ray: report reviewed Venous US: report reviewed Assessment and Plan (1) Right leg DVT Narrative/Plan: This would be considered a provoked clot, due to recent diagnosis of locally advanced lung cancer, as well as subsequent chemoradiation. Interestingly the patient was on aspirin and Plavix for his cardiovascular disease when he developed this clot. He is currently on anticoagulation with IV heparin. He can be switched over to one of the DOACs, assuming coverage for the same. I would recommend treatment for at least 6 months, with possibly more prolonged therapy depending on his risk profile at this time (which in turn will depend on amount of residual clot, presence or absence of cancer progression etc.) - Check CTA to rule out PE for baseline. Current Visit: Yes Status: Acute Code(s): I82.401 - ACUTE EMBOLISM AND THOMBOS UNSP DEEP VEINS OF R LOW EXTREM SNOMED Code(s): 250953115 (2) Acute febrile illness Narrative/Plan: The patient has no localizing signs of infection. Therefore it is likely that this is due to his DVT. Infection workup for the admitting service Current Visit: Yes Status: Acute Code(s): R50.9 - FEVER, UNSPECIFIED SNOMED Code(s): 430052285 (3) Anemia Narrative/Plan: This is most likely chemotherapy related. The patient denies any history suggestive of blood loss. Continue to monitor and transfuse for hemoglobin less than 7. Okay to anticoagulate. Current Visit: Yes Status: Acute Code(s): D64.9 - ANEMIA, UNSPECIFIED SNOMED Code(s): 128582568 (4) Adenocarcinoma of right lung Narrative/Plan: The patient had stage III adenocarcinoma, treated with curative intent with chemoradiation. He completed treatment to less than 2 weeks ago. He is supposed to have restaging studies in the next 3 weeks, and if stable will start on immunotherapy maintenance. Follow-up in the office as scheduled Current Visit: Yes Status: Acute Code(s): C34.91 - MALIGNANT NEOPLASM OF UNSP PART OF RIGHT BRONCHUS OR LUNG SNOMED Code(s): 44480666040535775
[2020-03-06] MEDS: ALBUTEROL HFA INHALER INHALATION PRN ×2 (11:40→19:55)
[2020-03-06] MEDS: HYDROcodone/APAP 15 ML SOLUTION PO PRN ×2 (12:55→20:42)
--- NOTE | 2020-03-06 12:56 | CT ---
CT CHEST FOR PULMONARY EMBOLISM. EXAMINATION TYPE: CT angio chest DATE OF EXAM: 03/06/2020 INDICATION: Suspect PE CT DLP: 645.7 mGycm, Automated exposure control for dose reduction was used. CONTRAST: Patient injected with 100 ml mL of Isovue 370. COMPARISON: 12/16/2019 TECHNIQUE: CT of the chest is performed on a spiral scan at 2 mm thick sections. Study is performed with intravenous contrast timed for evaluation for pulmonary embolism. This will limit additional po rtions of the evaluation. 3-D MIP images reconstructed by the technologist are reviewed on the compu ter in the coronal and sagittal planes. FINDINGS: Left lower lobe pulmonary embolism is evident. Example image 401 image 107. This may be chronic with incomplete obstruction. There is poor visualization of the right upper lobe pulmonary arteries. Thi s may be due to encasement of the right upper lobe artery from large right hilar mass. This measures 2.4 cm, soft tissue extending into the superior medial right upper lung field. Mass is diminished in size from December 2019. There is a 1.4 cm subcarinal lymph node present. Enlarged mediastinal lymphadenopathy is not identifi ed. The soft tissue mass at the right hilum could be a 2.4 cm lymph node. Direct invasion from the so ft tissue mass is within the differential. The ascending aorta diameter at the level of the main pulmonary artery is 3.6 cm. The main pulmonary artery diameter at the bifurcation is 2.5 cm. There is a small right pleural effusion. Limited CT section through the upper abdomen are unremarkable. IMPRESSIONS: 1. Left lower lobe pulmonary embolism may be chronic with incomplete obstruction. 2. Right hilar mass with extension superiorly and medially encases and appears to be obstructing the right upper lobe pulmonary artery. Mass is smaller than the comparison of 12/16/2019.
--- NOTE | 2020-03-06 20:27 | P.HPIM ---
History of Present Illness H&P Date: 03/06/20 Chief Complaint: Fever History of presenting complaint: This is a pleasant [address] Cantu. He was diagnosed with non-small cell lung cancer, moderately differentiated adenocarcinoma in December 2019. It was stage III disease with mediastinal lymphadenopathy. Treated with chemoradiation completed treatment about 2 weeks ago. He was due for restaging studies. He developed a fever. Has some shortness of breath since the cancer. No diarrhea. No urinary symptoms. Or skin changes. Did talk about swelling of the right leg for last 3 days. No cough or sputum. Review of systems: GEN.: Fever tired EYES: None HEENT: None NECK: None RESPIRATORY: Baseline shortness of breath CARDIOVASCULAR: None GASTROINTESTINAL: None GENITOURINARY: None MUSCULOSKELETAL: None LYMPHATICS: None HEMATOLOGICAL: None PSYCHIATRY: None NEUROLOGICAL: None Past medical history to include: Coronary artery disease with stent, bypass, COPD, GERD, hypertension, hyperlipidemia, spondylolisthesis L5-S1, AAA repair peripheral artery disease with stent to the right leg lumbar spine surgeries triple-vessel bypass 2016. Social history: . Smoked pack and half a day for 38 years stopping in 2011. Alcohol occasional. 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 EYES: Pupils equal. Conjunctiva normal. HEENT: External appearance of nose and ears normal, oral cavity grossly normal. NECK: JVD not raised; masses not palpable. HEART: First and second heart sounds are normal; no edema. LUNGS: Respiratory rate increased; decreased breath sounds. ABDOMEN: Soft, nontender, liver spleen not palpable, no masses palpable. PSYCH: Alert and oriented x3; mood and affect normal. NEUROLOGICAL: Cranial nerves grossly intact; no facial asymmetry, power and sensation grossly intact. LYMPHATICS: No lymph nodes palpable in the axilla and neck INVESTIGATIONS, reviewed in the clinical context: White count 3.5 hemoglobin 7.9 platelets 190 potassium 3.9 creatinine 1.01 Admission testing: Influenza A and B- potassium 4.7 creatinine 1.04 pro-calcitonin 0.11 white count 4.9 hemoglobin 8.3 platelets 206 Chest x-ray film personally reviewed by me-possible right-sided infiltrate Doppler ultrasound DVT in the right leg from proximal femoral vein to proximal calf vein. CT angina chest-left lower lobe pulmonary embolism-could be chronic, encasement of the right upper lobe artery from large right hilar mass. Decrease in size from December 2019. Lymph nodes positive. Assessment: -Extensive DVT of the right lower extremity extending to the proximal femoral vein and evidence of possible pulmonary embolism acute event is unsure. In the setting of lung cancer. --Moderately differentiated adenocarcinoma of the lung diagnosed in December 2019, treated with chemoradiation, with decrease in size on current computed tomography scan -Coronary artery disease with prior history of stent and bypass -COPD in an ex-smoker -GERD -Essential hypertension -Hyperlipidemia -Peripheral arterial disease -Spondylolisthesis L5-S1 Plan: Patient is put on IV heparin. Home medications were continued. Question about pneumonia as patient is put on IV cefepime. Consultation was made to oncology. Blood cultures pending. COVID 19 pending. Care was discussed with the patient. Questions answered. Past Medical History Past Medical History: Coronary Artery Disease (CAD), Chest Pain / Angina, COPD, GERD/Reflux, Hyperlipidemia, Hypertension, Vascular Disorder Additional Past Medical History / Comment(s): Spondylolithiasis L5-S1, back pain, generalized swelling History of Any Multi-Drug Resistant Organisms: None Reported Past Surgical History: Back Surgery, Coronary Bypass/CABG, Heart Catheterization, Heart Catheterization With Stent, Orthopedic Surgery Additional Past Surgical History / Comment(s): 1969 L knee injury with surgery, 1987 vasectomy, 1989 cervical surgery with bont donar from hip, PCI with stents, L shoulder surgery d/t injury, bilateral carpal tunnel releases, 2011 AAA repair, post AAA incision infection/muscle flap, 2013 stent R leg behind knee, 2 lumbar spine surgeries, 2017 CABG-3 vessel Past Anesthesia/Blood Transfusion Reactions: No Reported Reaction Additional Past Anesthesia/Blood Transfusion Reaction / Comment(s): Pt has clausterphobia. Date of Last Stent Placement:: 12/09/19 Cait Cool Past Psychological History: No Psychological Hx Reported Additional Psychological History / Comment(s): Pt rsides with his spouse of 33 yrs. He is independent. Smoking Status: Former smoker Past Alcohol Use History: Occasional Additional Past Alcohol Use History / Comment(s): Pt started smoking in 1973 and over the years was a cigarette smoker 1.5 ppd or cigar smoker-up th 4 a day. Pt quit smoking in 2011. Past Drug Use History: None Reported - Past Family History Father Family Medical History: Cancer Additional Family Medical History / Comment(s): Father of small cell lung cancer. Mother Family Medical History: Cancer Additional Family Medical History / Comment(s): Mother had leukemia. Medications and Allergies Home Medications Medication Instructions Recorded Confirmed Type Aspirin EC [Ecotrin Low Dose] 81 mg PO HS 12/16/19 03/05/20 History Atorvastatin [Lipitor] 20 mg PO HS 12/16/19 03/05/20 History Clopidogrel [Plavix] 75 mg PO DAILY 12/16/19 03/05/20 History Furosemide [Lasix] 40 mg PO Q48H 12/16/19 03/05/20 History Losartan [Cozaar] 25 mg PO DAILY 12/16/19 03/05/20 History Metoprolol Tartrate [Lopressor] 100 mg PO BID 12/16/19 03/05/20 History Multivitamins, Thera [Multivitamin 1 tab PO DAILY 12/16/19 03/05/20 History (formulary)] Pantoprazole [Protonix] 40 mg PO DAILY 12/16/19 03/05/20 History Albuterol Inhaler [Ventolin Hfa 2 puff INHALATION RT-Q4H PRN 03/05/20 03/05/20 History Inhaler] Ferrous Sulfate [Feosol] 325 mg PO DAILY 03/05/20 03/05/20 History Hydrocodone/Acetaminophen 15 ml PO Q8H PRN 03/05/20 03/05/20 History [Hydrocodone/Acetaminophen 7.5-325/15 Ml] Allergies Allergy/AdvReac Type Severity Reaction Status Date / Time No Known Allergies Allergy Verified 03/05/20 21:49 Physical Exam Vitals: Vital Signs Temp Pulse Pulse Resp BP BP Pulse Ox 03/06/20 04:00 97.8 F 77 18 101/58 99 03/06/20 00:00 98.4 F 100 20 104/55 98 03/05/20 20:59 110 H 20 99/39 96 03/05/20 20:53 98.4 F 103 H 20 111/53 98 03/05/20 20:23 99.3 F 103 H 20 109/61 96 03/05/20 19:32 102.3 F H 112 H 20 109/61 93 L 03/05/20 18:57 105 H 22 116/97 95 03/05/20 17:25 101.2 F H 120 H 20 131/91 100 Intake and Output 03/05/20 03/06/20 03/06/20 22:59 06:59 14:59 Intake Total 389.01 317.873 Output Total 200 300 Balance 189.01 17.873 Intake: Intake, IV Titration 149.01 77.873 Amount Heparin Sod,Pork in 0.45% 149.01 77.873 NaCl 25,000 unit In 0.45 % NaCl 1 250ml.bag @ 18 UNITS/KG/HR 18.942 mls/hr IV .[id number] [facility] Rx#: [id number] Oral 240 240 Output: Urine 200 300 Other: # Voids 1 # Bowel Movements 1 Weight 105.233 kg 107 kg Results CBC & Chem 7: 03/06/20 02:57 03/06/20 02:57 Labs: Abnormal Lab Results - Last 24 Hours (Table) 03/05/20 03/05/20 03/05/20 Range/Units 18:22 18:22 18:22 WBC (3.8-10.6) k/uL RBC 2.47 L (4.30-5.90) m/uL Hgb 8.3 L (13.0-17.5) gm/dL Hct 25.5 L (39.0-53.0) % MCV 103.4 H (80.0-100.0) fL RDW 18.3 H (11.5-15.5) % Lymphocytes # 0.4 L (1.0-4.8) k/uL Lymphocytes # (Manual) (1.0-4.8) k/uL PT 13.1 H (9.0-12.0) sec INR 1.3 H (<1.2) APTT (22.0-30.0) sec Sodium 133 L (137-145) mmol/L Glucose 117 H (74-99) mg/dL Total Protein 6.0 L (6.3-8.2) g/dL Albumin 3.3 L (3.5-5.0) g/dL Urine Protein (Negative) 03/05/20 03/06/20 03/06/20 Range/Units 18:56 02:57 02:57 WBC 3.5 L (3.8-10.6) k/uL RBC 2.42 L (4.30-5.90) m/uL Hgb 7.9 L (13.0-17.5) gm/dL Hct 25.1 L (39.0-53.0) % MCV 104.0 H (80.0-100.0) fL RDW 18.0 H (11.5-15.5) % Lymphocytes # (1.0-4.8) k/uL Lymphocytes # (Manual) 0.95 L (1.0-4.8) k/uL PT (9.0-12.0) sec INR (<1.2) APTT 150.4 H* (22.0-30.0) sec Sodium (137-145) mmol/L Glucose (74-99) mg/dL Total Protein (6.3-8.2) g/dL Albumin (3.5-5.0) g/dL Urine Protein Trace H (Negative) 03/06/20 Range/Units 02:57 WBC (3.8-10.6) k/uL RBC (4.30-5.90) m/uL Hgb (13.0-17.5) gm/dL Hct (39.0-53.0) % MCV (80.0-100.0) fL RDW (11.5-15.5) % Lymphocytes # (1.0-4.8) k/uL Lymphocytes # (Manual) (1.0-4.8) k/uL PT (9.0-12.0) sec INR (<1.2) APTT (22.0-30.0) sec Sodium 135 L (137-145) mmol/L Glucose 113 H (74-99) mg/dL Total Protein 5.7 L (6.3-8.2) g/dL Albumin 2.9 L (3.5-5.0) g/dL Urine Protein (Negative) Thrombosis Risk Factor Assmnt - Choose All That Apply Each Risk Factor Represents 2 Points: Age 61-74 years Thrombosis Risk Factor Assessment Total Risk Factor Score: 2 Thrombosis Risk Factor Assessment Level: Low Risk
[2020-03-06] MEDS: ASPIRIN 81 MG PO SCH (20:41)
[2020-03-06] MEDS: ATORVASTATIN 20 MG TAB PO SCH (20:41)
--- NOTE | 2020-03-07 01:47 | CONS ---
CONSULTATION This is a very pleasant 69-year-old male who sees Dr. Cantu as the primary. The patient comes into the emergency room on March 05 at 17:22. The patient comes in complaining of a couple things including fever, right leg swelling, as well as shortness of breath. The patient was evaluated in the emergency room, admitted to the hospital. A Doppler of the right lower extremity revealed acute DVT in the femoral, popliteal, and tibial veins on the right. In addition, the patient had a CT angiogram which revealed a left lower lobe pulmonary embolism as well as a right hilar mass with extension medially and superiorly, also which in cases obstructs the right upper lobe pulmonary artery. The mass is smaller than a previous CT scan done in December. In addition, the patient complains of fever. The patient recently completed chemo and radiation therapy. He completed 33 radiation treatments and 7 cycles of chemotherapy. His last chemotherapy cycle took place maybe about 2 weeks ago. Currently, the patient is feeling a bit better today. He is still short of breath. He has got a bit of a cough. Not producing any phlegm. Currently, no fever. No chest pain or chest discomfort. No nausea, vomiting or diarrhea. MEDICATIONS: His home medications are reviewed. They include aspirin, Lipitor, Plavix, iron, Lasix, Imdur, losartan, Lopressor, vitamins, Protonix. ALLERGIES: Denied. PAST MEDICAL HISTORY: Past medical history includes CAD, chest pain/angina, COPD, GERD, hyperlipidemia, hypertension, spondylolisthesis, chronic back pain, and lung cancer. The patient states that his lung cancer was large cell lung cancer and he states it was not surgically resectable because of its location and the structures that it was wrapping around and invading. SURGICAL HISTORY: Surgical history includes back surgery, bypass grafting, heart catheterization with stent, left knee surgery, vasectomy, left shoulder surgery, bilateral carpal tunnel release, AAA repair, and two lumbar spine surgery. SOCIAL HISTORY: Positive for previous tobacco use. He was a heavy smoker in the past. Does not smoke currently. Drinks alcohol occasionally. Denies any illicit drug use. FAMILY HISTORY: Positive for his father who of small cell lung cancer, and his mother had leukemia. REVIEW OF SYSTEMS: CONSTITUTIONAL: Fever. NEUROLOGIC: Negative. HEENT: Negative. CARDIOVASCULAR: Negative. PULMONARY: Shortness of breath. GI: Negative. : Negative. RHEUMATOLOGIC: Right leg swelling. IMMUNOLOGIC: Negative. ENDOCRINOLOGIC: Negative. DERMATOLOGIC: Negative. PHYSICAL EXAMINATION: VITAL SIGNS: Current vital signs are reviewed. Temperature is 98, T-max is 102.3, heart rate 70, respiratory rate 18, blood pressure 133/61, mean 85 and room air saturation is 100%. GENERAL: He appears in no acute distress. HEENT: Examination is grossly unremarkable. The patient is not requiring any supplemental oxygen. NECK: Supple. Full range of motion. No adenopathy. Neck veins are flat. CARDIOVASCULAR: Examination reveals regular rhythm and rate. Heart rate 70 beats per minute. S1, S2 normal. LUNGS: Reveal mostly clear breath sounds. A few scattered mild rhonchi. No wheezes. ABDOMEN: Soft. Bowel sounds are heard. EXTREMITIES: Are intact. There is some swelling of the right lower extremity compared to the left. It is nontender. SKIN: Without rash. NEUROLOGIC: Examination is brief but nonfocal. LABS: Labs are reviewed. White count 3.5, hemoglobin 7.9, hematocrit 25.1, and platelet count 190,000. PTT 72.1. Sodium 135, potassium 3.9, chloride 104, CO2 of 27. Anion gap 4. BUN and creatinine were 20 and 1.01. Glucose 113. Total protein 5.7. Procalcitonin is 0.11. Urine is negative. Influenza A and B studies were negative. Chest x-ray done on the shows no definite acute lung disease. The right hilum is less prominent on this x-ray compared to the previous one. A CT angiogram, as mentioned, reveals left lower lobe pulmonary embolus as well as right hilar mass which extends superiorly and medially encases and appears obstructing the right upper lobe pulmonary artery. The mass is smaller compared to the prior CT done in December. MEDICATIONS: Current medications reviewed. Currently, he is on albuterol inhaler, aspirin, Lipitor, cefepime, Plavix, iron, Lasix, IV heparin, [place], losartan, metoprolol, multivitamins, and Protonix. ASSESSMENT: 1. Right lower extremity deep venous thrombosis and left lower lobe pulmonary artery pulmonary embolism, likely reflecting a hypercoagulable state from the patient's underlying malignancy. 2. Stage 3 NSCLC (adenocarcinoma), status post 33 radiation treatments and 7 cycles of chemotherapy. 3. Right lower extremity deep venous thrombosis. 4. Fever, of unclear etiology. The patient does not have any localizing signs or symptoms. The fever could be caused by the pulmonary embolism or deep venous thrombosis. 5. Shortness of breath, mild and chronic, currently at baseline. 6. History of coronary artery disease. 7. History of angina. 8. History of chronic obstructive pulmonary disease. 9. Gastroesophageal reflux disease. 10.Hyperlipidemia. 11.Hypertension. 12.Spondylolisthesis. PLAN: The patient's heparin can be discontinued in favor of a factor Xa inhibitor. The rest of the medications appear to be okay. I do not believe the patient would require an antibiotic. I will leave that up to the primary service. If the patient has not had pulmonary function tests, they should be done at some time down the road. Additional recommendations and suggestions are forthcoming. Prognosis is guarded. We will continue to follow. The patient has not had a temperature elevation for about a day now. MMODL / IJN: [id number] / [id number]
[2020-03-07] MEDS: HEPARIN SOD,PORK IN 0.45% NACL 25,000 UNIT in 0.45% NACL 1 250ML.BAG IV SCH ×2 (02:04→05:13)
[2020-03-07 05:40] LABS: Anisocytosis Slight; Basophils % (A) 0 %; Eosinophils # (A) 0.1 k/uL (0-0.7); Eosinophils % (A) 2 %; HCT 25.7 % (39.0-53.0); HGB 8.3 gm/dL (13.0-17.5); Hypochromasia Moderate; Lymphocytes # (A) 0.4 k/uL (1.0-4.8); Lymphocytes % (A) 11 %; MCH 33.6 pg (25.0-35.0); MCHC 32.5 g/dL (31.0-37.0); MCV 103.5 fL (80.0-100.0); Macrocytosis Moderate; Mean Platelet Volume 7.1; Monocytes # (A) 0.5 k/uL (0-1.0); Monocytes % (A) 13 %; Neutrophils # (A) 2.5 k/uL (1.3-7.7); Neutrophils % (A) 71 %; Platelet Count 202 k/uL (150-450); Poikilocytosis Moderate; RBC 2.48 m/uL (4.30-5.90); RDW 17.9 % (11.5-15.5); WBC 3.5 k/uL (3.8-10.6)
[2020-03-07] MEDS: CEFEPIME 1 GM in SODIUM CHLORIDE 0.9% 50 ML IVPB SCH ×2 (06:35→17:15)
[2020-03-07] MEDS: PANTOPRAZOLE 40 MG TABLET PO SCH ×2 (09:15→21:10)
[2020-03-07] MEDS: FERROUS SULFATE 325 MG TAB PO SCH (09:15)
[2020-03-07] MEDS: LOSARTAN 25 MG TAB PO SCH (09:15)
[2020-03-07] MEDS: METOPROLOL TARTRATE 50 MG TAB PO SCH ×2 (09:15→21:09)
[2020-03-07] MEDS: CLOPIDOGREL 75 MG TAB PO SCH (09:15)
[2020-03-07] MEDS: HYDROcodone/APAP 15 ML SOLUTION PO PRN ×2 (09:15→21:08)
[2020-03-07] MEDS: MULTIVITAMINS, THERA 1 EACH TAB PO SCH (09:15)
[2020-03-07 11:16] LABS: % Iron Saturation 13.93 (15.00-50.00); Ferritin 1026.9 ng/mL (22.0-322.0)
[2020-03-07 12:57] LABS: Reticulocyte % 4.1 % (0.5-2.0)
--- NOTE | 2020-03-07 15:38 | P.PN ---
Progress Note - Text Progress Note Date: 03/07/20 Chief Complaint: Fever History of presenting complaint: This is a pleasant [address] Cantu. He was diagnosed with non-small cell lung cancer, moderately differentiated adenocarcinoma in December 2019. It was stage III disease with mediastinal lymphadenopathy. Treated with chemoradiation completed treatment about 2 weeks ago. He was due for restaging studies. He developed a fever. Has some shortness of breath since the cancer. No diarrhea. No urinary symptoms. Or skin changes. Did talk about swelling of the right leg for last 3 days. No cough or sputum. Admitted with-acute DVT of the right lower extremity, possible PE, pneumonia. Patient started on IV heparin, IV cefepime Today-breathing better. Less tired. Tolerating a diet. On IV heparin. Review of systems: Was done for constitutional, cardiovascular, GI, pulmonary. relevant finding as above Active Medications Hydrocodone Bitart/Acetaminophen (Hydrocodone/Apap 15 Ml Solution) 15 ml PO Q8H PRN PRN Reason: Pain Last Admin: 03/07/20 09:15 Dose: 15 ml Documented by: Albuterol Sulfate (Albuterol Hfa Inhaler) 2 puff INHALATION RT-Q4H PRN PRN Reason: Shortness Of Breath Last Admin: 03/06/20 19:55 Dose: 2 puff Documented by: Apixaban (Apixaban 5 Mg Tab) 5 mg PO BID [facility] Aspirin (Aspirin 81 Mg) 81 mg PO HS [facility] Last Admin: 03/06/20 20:41 Dose: 81 mg Documented by: Atorvastatin Calcium (Atorvastatin 20 Mg Tab) 20 mg PO HS [facility] Last Admin: 03/06/20 20:41 Dose: 20 mg Documented by: Clopidogrel Bisulfate (Clopidogrel 75 Mg Tab) 75 mg PO DAILY [facility] Last Admin: 03/07/20 09:15 Dose: 75 mg Documented by: Ferrous Sulfate (Ferrous Sulfate 325 Mg Tab) 325 mg PO DAILY [facility] Last Admin: 03/07/20 09:15 Dose: 325 mg Documented by: Furosemide (Furosemide 40 Mg Tab) 40 mg PO Q48H [facility] Last Admin: 03/06/20 10:32 Dose: 40 mg Documented by: Heparin Sodium (Porcine) (Heparin Sodium,Porcine 5,000 Unit/Ml 1 Ml Vial) 0 unit IV PER PROTOCOL PRN; Protocol PRN Reason: Low PTT Stop: 10/05/20 18:00 Last Admin: 03/06/20 23:13 Dose: 4,280 unit Documented by: Heparin Sodium/Sodium Chloride (25,000 unit/ Sodium Chloride) 250 mls @ 18.942 mls/hr IV .[id number] [facility]; Protocol Stop: 03/07/20 18:00 Last Titration: 03/07/20 06:54 Dose: 15 units/kg/hr, 15.785 mls/hr Documented by: Cefepime HCl 1 gm/ Sodium (Chloride) 50 mls @ 100 mls/hr IVPB Q12H [facility] Last Admin: 03/07/20 06:35 Dose: 100 mls/hr Documented by: Losartan Potassium (Losartan 25 Mg Tab) 25 mg PO DAILY [facility] Last Admin: 03/07/20 09:15 Dose: 25 mg Documented by: Metoprolol Tartrate (Metoprolol Tartrate 50 Mg Tab) 100 mg PO BID [facility] Last Admin: 03/07/20 09:15 Dose: 100 mg Documented by: Multivitamins (Multivitamins, Thera 1 Each Tab) 1 each PO DAILY [facility] Last Admin: 03/07/20 09:15 Dose: 1 each Documented by: Pantoprazole Sodium (Pantoprazole 40 Mg Tablet) 40 mg PO AC-BID [facility] Physical examination: VITAL SIGNS: 97.8, 81, 16, 112/70, 97% on room air GENERAL: Sitting at the edge the bed, eating, appears more comfortable EYES: Pupils equal. Conjunctiva normal. NECK: JVD not raised; masses not palpable. HEART: First and second heart sounds are normal; no edema. LUNGS: Respiratory rate increased; decreased breath sounds. ABDOMEN: Soft, nontender, liver spleen not palpable, no masses palpable. PSYCH: Alert and oriented x3; mood and affect normal. INVESTIGATIONS, reviewed in the clinical context: White count 3.5 hemoglobin 8.3 platelets 202 Iron 28 TIBC 201% saturation 130.9 ferritin 1026 Admission testing: Influenza A and B- potassium 4.7 creatinine 1.04 pro-calcitonin 0.11 white count 4.9 hemoglobin 8.3 platelets 206 Chest x-ray film personally reviewed by me-possible right-sided infiltrate Doppler ultrasound DVT in the right leg from proximal femoral vein to proximal calf vein. CT angina chest-left lower lobe pulmonary embolism-could be chronic, encasement of the right upper lobe artery from large right hilar mass. Decrease in size from December 2019. Lymph nodes positive. COVID 19 P/Cr-not detected Assessment: -Extensive acute DVT of the right lower extremity extending to the proximal femoral vein and evidence of possible pulmonary embolism acute event is unsure. In the setting of lung cancer. --Moderately differentiated adenocarcinoma of the lung diagnosed in December 2019, treated with chemoradiation, with decrease in size on current computed tomography scan -Possible pneumonia suspected gram-negative organism -Coronary artery disease with prior history of stent and bypass -COPD in an ex-smoker -GERD -Essential hypertension -Hyperlipidemia -Peripheral arterial disease -Spondylolisthesis L5-S1 -IV heparin monitoring Plan: We'll continue with IV heparin until this evening switch over to eliquis. Another 24 hours of IV cefepime. Care was discussed with the patient. Questions answered. Hopefully discharged tomorrow.
--- NOTE | 2020-03-07 16:09 | P.PN ---
Subjective Progress Note Date: 03/07/20 03/07/2020 on seeing the patient for a follow-up. 69-year-old male patient with known history of lung cancer stage III and the patient is currently receiving chemoradiation therapy. The patient has completed his treatment. The patient came in for a DVT of the lower extremity on the right involving the right femoral popliteal and tibial veins and secondary pulmonary embolism as the patient was found to have a left lower lobe pulmonary artery branch for embolism. As for the right hilar mass, this was shrinking in size and was smaller compared to the earlier CAT scan. The patient is a total of 33 sessions of radiation therapy and completed systemic chemotherapy. Doing well. No no hemoptysis. No pleurisy. No hemodynamic instability. No nausea. No vomiting. No abdominal pain. No chest pain. Is currently on room air oxygen. No fever or chills. No other complaints otherwise for now. Objective - Vital Signs Vital signs: Vital Signs Temp 98.3 F 03/07/20 15:37 Pulse 89 03/07/20 15:41 Resp 16 03/07/20 15:41 BP 96/57 03/07/20 15:37 Pulse Ox 92 L 03/07/20 15:37 Intake & Output 03/06/20 03/07/20 03/07/20 18:59 06:59 18:59 Intake Total 865.536 202.908 280 Output Total 700 550 Balance 165.536 -347.092 280 Weight 106.2 kg Intake: Intake, IV Titration 151.536 202.908 50 Amount Cefepime 1 gm In Sodium 50 Chloride 0.9% 50 ml @ 100 mls/hr IVPB Q12H [facility] Rx# :[id number] Heparin Sod,Pork in 0.45% 151.536 202.908 NaCl 25,000 unit In 0.45 % NaCl 1 250ml.bag @ 18 UNITS/KG/HR 18.942 mls/hr IV .[id number] [facility] Rx#: [id number] Oral 714 230 Output: Urine 700 550 Other: Voiding Method Urinal # Voids 1 1 # Bowel Movements 1 1 - Exam The patient appeared well nourished and normally developed. Vital signs as documented. Head exam is unremarkable. No scleral icterus or corneal arcus noted. Neck is without jugular venous distension, thyromegaly, or carotid bruits. Carotid upstrokes are brisk bilaterally. Lungs are clear to auscultation and percussion. Cardiac exam reveals the PMI to be normally sized and situated. Rhythm is regular. First and second heart sounds normal. No murmurs, rubs or gallops. Abdominal exam reveals normal bowel sounds, no masses, no organomegaly and no aortic enlargement. Extremities are showing that the right lower extremity slightly more edematous compared to the left and both femoral and ped al pulses are normal.Examination of the skin revealed no evidence of significant rashes, suspicious appearing nevi or other concerning lesions.Neurologically, the patient is awake and alert and the patient does not have any focal neurological deficit. Cranial nerves are essentially intact. - Labs CBC & Chem 7: 03/07/20 05:12 03/06/20 02:57 Labs: Abnormal Lab Results - Last 24 Hours (Table) 03/06/20 03/07/20 03/07/20 Range/Units 21:06 05:12 05:12 WBC 3.5 L (3.8-10.6) k/uL RBC 2.48 L (4.30-5.90) m/uL Hgb 8.3 L (13.0-17.5) gm/dL Hct 25.7 L (39.0-53.0) % MCV 103.5 H (80.0-100.0) fL RDW 17.9 H (11.5-15.5) % Lymphocytes # 0.4 L (1.0-4.8) k/uL Retic Count (0.5-2.0) % APTT 40.2 H (22.0-30.0) sec Iron 28 L (65-175) ug/dL TIBC 201 L (228-460) ug/dL % Saturation 13.93 L (15.00-50.00) Ferritin 1026.9 H (22.0-322.0) ng/mL Lactate Dehydrogenase (313-618) U/L 03/07/20 03/07/20 03/07/20 Range/Units 05:12 11:12 11:12 WBC (3.8-10.6) k/uL RBC (4.30-5.90) m/uL Hgb (13.0-17.5) gm/dL Hct (39.0-53.0) % MCV (80.0-100.0) fL RDW (11.5-15.5) % Lymphocytes # (1.0-4.8) k/uL Retic Count 4.1 H (0.5-2.0) % APTT 56.6 H (22.0-30.0) sec Iron (65-175) ug/dL TIBC (228-460) ug/dL % Saturation (15.00-50.00) Ferritin (22.0-322.0) ng/mL Lactate Dehydrogenase 620 H (313-618) U/L Microbiology - Last 24 Hours (Table) 03/05/20 18:22 Blood Culture - Preliminary Blood No Growth after 24 hours Assessment and Plan Plan: 1 right lower extremity DVT with secondary pulmonary embolism secondary to underlying hypercoagulability related to his malignancy. Currently on IV heparin. 2 stage III non-small cell lung cancer post-concurrent chemoradiation therapy which drinking in the right hilar mass 3 fever most likely related to DVT 4 shortness of breath secondary to above 5 coronary artery disease, with previous cardiac catheterization and stenting of the the coronaries involving the LAD. The patient also status post coronary artery bypass surgery. 6 COPD 7 hypertension 8 hyperlipidemia 9 chronic back pain with spondylolisthesis 10 mild aortic stenosis 11 peripheral vascular disease Plan Continued IV heparin. Favor switching this patient to a newer agent oral anticoagulation and this will be left lung and to coagulation as the patient has an underlying provoked pulmonary embolism related to his underlying lung cancer. The patient will be switched to Eliquis 5 mg by mouth twice a day. IV heparin will be discontinued. Continue aspirin. Continue Plavix. Monitor the patient for any signs of bleeding. We'll continue to follow.
[2020-03-07] MEDS ORDERED: ANTACID PO PRN (18:42)
[2020-03-07] MEDS ORDERED: LIDO MOUTHWASH PO PRN (18:42)
[2020-03-07] MEDS ORDERED: DIPHEN PO PRN (18:42)
[2020-03-07] MEDS: ALBUTEROL HFA INHALER INHALATION PRN (19:56)
[2020-03-07] MEDS: ATORVASTATIN 20 MG TAB PO SCH (21:09)
[2020-03-07] MEDS: ASPIRIN 81 MG PO SCH (21:09)
[2020-03-07] MEDS: APIXABAN 5 MG TAB PO SCH (21:10)
--- NOTE | 2020-03-07 22:33 | P.PN ---
Subjective Progress Note Date: 03/07/20 Principal diagnosis: Anemia and thrombolic event Iron studies do not indicate need for supplementation, awaiting further work-up. Heparin continued. He is status post definitive treatment with weekly concurent radiation and chemotherapy (carbo and taxol) and plan was to repeat imaging in 4 weeks. Objective - Vital Signs Vital signs: Vital Signs Temp 98.3 F 03/07/20 08:00 Pulse 87 03/07/20 08:00 Resp 18 03/07/20 08:00 BP 107/66 03/07/20 08:00 Pulse Ox 97 03/07/20 08:00 Intake & Output 03/06/20 03/07/20 03/07/20 18:59 06:59 18:59 Intake Total 865.536 202.908 Output Total 700 550 Balance 165.536 -347.092 Weight 106.2 kg Intake: Intake, IV Titration 151.536 202.908 Amount Heparin Sod,Pork in 0.45% 151.536 202.908 NaCl 25,000 unit In 0.45 % NaCl 1 250ml.bag @ 18 UNITS/KG/HR 18.942 mls/hr IV .[id number] [facility] Rx#: [id number] Oral 714 Output: Urine 700 550 Other: Voiding Method Urinal # Voids 1 1 # Bowel Movements 1 1 - Exam - Constitutional General appearance: no acute distress - EENT Eyes: EOMI, PERRLA ENT: hearing grossly normal, normal oropharynx - Neck Neck: no lymphadenopathy - Respiratory Respiratory: bilateral: CTA - Cardiovascular Rhythm: regular Heart sounds: normal: S1, S2 - Gastrointestinal General gastrointestinal: normal bowel sounds, soft - Integumentary Integumentary: normal - Neurologic Neurologic: CNII-XII intact - Musculoskeletal Right lower extremity swelling 1+ edema, increased girth Musculoskeletal: generalized weakness, strength equal bilaterally - Psychiatric Psychiatric: A&O x's 3, appropriate affect - Labs CBC & Chem 7: 03/07/20 05:12 03/06/20 02:57 Labs: Abnormal Lab Results - Last 24 Hours (Table) 03/05/20 03/06/20 03/06/20 Range/Units 18:22 11:33 21:06 WBC (3.8-10.6) k/uL RBC (4.30-5.90) m/uL Hgb (13.0-17.5) gm/dL Hct (39.0-53.0) % MCV (80.0-100.0) fL RDW (11.5-15.5) % Lymphocytes # (1.0-4.8) k/uL APTT 72.1 H 40.2 H (22.0-30.0) sec Procalcitonin 0.11 H (0.02-0.09) ng/mL 03/07/20 03/07/20 Range/Units 05:12 05:12 WBC 3.5 L (3.8-10.6) k/uL RBC 2.48 L (4.30-5.90) m/uL Hgb 8.3 L (13.0-17.5) gm/dL Hct 25.7 L (39.0-53.0) % MCV 103.5 H (80.0-100.0) fL RDW 17.9 H (11.5-15.5) % Lymphocytes # 0.4 L (1.0-4.8) k/uL APTT 56.6 H (22.0-30.0) sec Procalcitonin (0.02-0.09) ng/mL Microbiology - Last 24 Hours (Table) 03/05/20 18:22 Blood Culture - Preliminary Blood No Growth after 24 hours Assessment and Plan Plan: Chest x-ray: report reviewed Venous US: report reviewed Assessment and Plan NEW Right leg DVT and PE - Secondary to hypercoaguable malignant state - This would be considered a provoked clot - Patient was on aspirin and Plavix for his cardiovascular disease when he developed this clot. - He is currently on anticoagulation with IV heparin. He can be switched over to one of the DOACs, assuming coverage for the same. -Treatment recommended for at least 6 months, - CT scan did show evidence of Pulmonary Emobolism Acute febrile illness - T-max on admission 102.3 - Afebrile since this time - Hardy CUltures negative to date Macrocytic Anemia - Macrocytosis likely related to effects of chemotherapy although anemia work- up was performed and awaiting MMA and Folate levels. - B12 and Iron studies show no room for supplementation at this time - his is most likely chemotherapy related. - Daily CBC and Transfusion support hemoglobin less than 7 Recent Diagnosis of Adenocarcinoma of right lung: Stage III - Review of CT does show decreased lung mass in comparision to Naya studies - Status post concurrent radiation and chemotherapy (2 weeks ago completed) - Plan for immune therapy maintenance when antoni
[2020-03-08] MEDS: PANTOPRAZOLE 40 MG TABLET PO SCH (06:33)
[2020-03-08] MEDS: CEFEPIME 1 GM in SODIUM CHLORIDE 0.9% 50 ML IVPB SCH (06:33)
[2020-03-08 07:46] LABS: Anisocytosis Slight; Basophils % (A) 0 %; Eosinophils % (A) 1 %; HCT 27.4 % (39.0-53.0); HGB 8.7 gm/dL (13.0-17.5); Hypochromasia Moderate; Lymphocytes # (A) 0.5 k/uL (1.0-4.8); Lymphocytes % (A) 12 %; MCH 33.4 pg (25.0-35.0); MCHC 31.6 g/dL (31.0-37.0); MCV 105.7 fL (80.0-100.0); Macrocytosis Marked; Mean Platelet Volume 7.6; Monocytes # (A) 0.4 k/uL (0-1.0); Monocytes % (A) 11 %; Neutrophils # (A) 2.8 k/uL (1.3-7.7); Neutrophils % (A) 72 %; Platelet Count 210 k/uL (150-450); Poikilocytosis Moderate; RDW 17.3 % (11.5-15.5); WBC 3.9 k/uL (3.8-10.6)
[2020-03-08 08:34] VITALS: RESP 16; TEMP 98.5
[2020-03-08] MEDS: MULTIVITAMINS, THERA 1 EACH TAB PO SCH (08:36)
[2020-03-08] MEDS: CLOPIDOGREL 75 MG TAB PO SCH (08:36)
[2020-03-08] MEDS: LOSARTAN 25 MG TAB PO SCH (08:36)
[2020-03-08] MEDS: METOPROLOL TARTRATE 50 MG TAB PO SCH (08:36)
[2020-03-08] MEDS: APIXABAN 5 MG TAB PO SCH (08:36)
[2020-03-08] MEDS: FERROUS SULFATE 325 MG TAB PO SCH (08:36)
[2020-03-08] MEDS: FUROSEMIDE 40 MG TAB PO SCH (08:36)
[2020-03-08 08:45] LABS: Polychromasia Present; Toxic Granulation Present
[2020-03-08 10:27] VITALS: BMI 28.5
--- NOTE | 2020-03-08 10:27 | P.CONS ---
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 mediastinal lymphadenopathy. Patient underwent definitive treatment of concurrent chemoradiation, which he completed in 02/23/2020. He was admitted to the hospital for right lower extremity DVT, he he has symptoms of fever swelling in the right leg, he was noted to have a right lower extremity swelling , US venous Doppler showing clot extending from the proximal femoral down popliteal and tibial veins. CT of the chest in 03/06/2022 is compared to his CT in 12/16/2019 reported left lower lobe pulmonary embolism, the mass in the right upper lung has diminished in size. At this time is doing well, resting in his bed , he has no complain except for exertion shortness of breath, he denies pain, headache, nausea, and vomiting. Review of Systems All systems: negative Constitutional: Reports chills, Reports fever Eyes: denies blurred vision, denies pain Ears, nose, mouth and throat: Denies headache, Denies sore throat Respiratory: Reports dyspnea, Reports wheezing Musculoskeletal: Reports loss of height Integumentary: Denies pruritus, Denies rash Psychiatric: Denies anxiety, Denies depression Past Medical History Past Medical History: Coronary Artery Disease (CAD), Chest Pain / Angina, COPD, GERD/Reflux, Hyperlipidemia, Hypertension, Vascular Disorder Additional Past Medical History / Comment(s): Spondylolithiasis L5-S1, back pain, generalized swelling History of Any Multi-Drug Resistant Organisms: None Reported Past Surgical History: Back Surgery, Coronary Bypass/CABG, Heart Catheterization, Heart Catheterization With Stent, Orthopedic Surgery Additional Past Surgical History / Comment(s): 1970 L knee injury with surgery, 1987 vasectomy, 1989 cervical surgery with bont donar from hip, PCI with stents, L shoulder surgery d/t injury, bilateral carpal tunnel releases, 2011 AAA re pair, post AAA incision infection/muscle flap, 2013 stent R leg behind knee, 2 lumbar spine surgeries, 2017 CABG-3 vessel Past Anesthesia/Blood Transfusion Reactions: No Reported Reaction Additional Past Anesthesia/Blood Transfusion Reaction / Comm: Pt has clausterphobia. Date of Last Stent Placement:: 12/09/19 Cait Cool Past Psychological History: No Psychological Hx Reported Additional Psychological History / Comment(s): Pt rsides with his spouse of 33 yrs. He is independent. Smoking Status: Former smoker Past Alcohol Use History: Occasional Additional Past Alcohol Use History / Comment(s): Pt started smoking in 1973 and over the years was a cigarette smoker 1.5 ppd or cigar smoker-up th 4 a day. Pt quit smoking in 2011. Past Drug Use History: None Reported - Past Family History Father Family Medical History: Cancer Additional Family Medical History / Comment(s): Father of small cell lung cancer. Mother Family Medical History: Cancer Additional Family Medical History / Comment(s): Mother had leukemia. Medications and Allergies Home Medications Medication Instructions Recorded Confirmed Type Aspirin EC [Ecotrin Low Dose] 81 mg PO HS 12/16/19 03/05/20 History Atorvastatin [Lipitor] 20 mg PO HS 12/16/19 03/05/20 History Clopidogrel [Plavix] 75 mg PO DAILY 12/16/19 03/05/20 History Furosemide [Lasix] 40 mg PO Q48H 12/16/19 03/05/20 History Losartan [Cozaar] 25 mg PO DAILY 12/16/19 03/05/20 History Metoprolol Tartrate [Lopressor] 100 mg PO BID 12/16/19 03/05/20 History Multivitamins, Thera [Multivitamin 1 tab PO DAILY 12/16/19 03/05/20 History (formulary)] Pantoprazole [Protonix] 40 mg PO DAILY 12/16/19 03/05/20 History Albuterol Inhaler [Ventolin Hfa 2 puff INHALATION RT-Q4H PRN 03/05/20 03/05/20 History Inhaler] Ferrous Sulfate [Feosol] 325 mg PO DAILY 03/05/20 03/05/20 History Hydrocodone/Acetaminophen 15 ml PO Q8H PRN 03/05/20 03/05/20 History [Hydrocodone/Acetaminophen 7.5-325/15 Ml] Apixaban [Eliquis Starter Pack 0 mg PO DIRECTED 30 Days #1 pack 03/07/20 Rx (for VTE)] Allergies Allergy/AdvReac Type Severity Reaction Status Date / Time No Known Allergies Allergy Verified 03/05/20 21:49 Physical Exam Vitals: Vital Signs Temp Pulse Resp BP Pulse Ox 03/08/20 08:00 98.5 F 110 H 16 121/58 97 03/08/20 04:00 98.3 F 77 17 100/64 97 03/08/20 00:00 98.4 F 76 17 96/57 96 03/07/20 20:00 99.4 F 96 17 127/75 98 03/07/20 15:41 89 16 03/07/20 15:37 98.3 F 89 16 96/57 92 L 03/07/20 12:00 97.8 F 81 16 112/70 97 Intake and Output 03/07/20 03/08/20 03/08/20 22:59 06:59 14:59 Intake Total 240 Output Total 400 250 500 Balance -400 -250 -260 Intake: Oral 240 Output: Urine 400 250 500 Other: Voiding Method Toilet Toilet Urinal Urinal # Voids 1 1 Weight 106.5 kg - Constitutional General appearance: average body habitus, cooperative, mild distress, no acute distress - EENT Eyes: PERRLA, fundus normal ENT: normal oropharynx - Neck Neck: normal ROM Carotids: negative: upstroke normal, upstroke delayed, upstroke diminished, upstroke bounding, bruit absent, bruit present Thyroid: negative: normal size, enlarged, firm, nodule - Respiratory Respiratory: right: diminished, rhonchi, bilateral: rales, negative: wheezing, prolonged expiration, prolonged inspiration - Cardiovascular Rhythm: regular - Gastrointestinal General gastrointestinal: normal bowel sounds Results CBC & Chem 7: 03/08/20 06:43 03/06/20 02:57 Labs: Abnormal Lab Results - Last 24 Hours (Table) 03/07/20 03/07/20 03/07/20 Range/Units 05:12 05:12 11:12 RBC (4.30-5.90) m/uL Hgb (13.0-17.5) gm/dL Hct (39.0-53.0) % MCV (80.0-100.0) fL RDW (11.5-15.5) % Lymphocytes # (1.0-4.8) k/uL Macrocytosis Retic Count 4.1 H (0.5-2.0) % Iron 28 L (65-175) ug/dL TIBC 201 L (228-460) ug/dL % Saturation 13.93 L (15.00-50.00) Ferritin 1026.9 H (22.0-322.0) ng/mL Lactate Dehydrogenase (313-618) U/L Procalcitonin 0.11 H (0.02-0.09) ng/mL 03/07/20 03/08/20 Range/Units 11:12 06:43 RBC 2.60 L (4.30-5.90) m/uL Hgb 8.7 L (13.0-17.5) gm/dL Hct 27.4 L (39.0-53.0) % MCV 105.7 H (80.0-100.0) fL RDW 17.3 H (11.5-15.5) % Lymphocytes # 0.5 L (1.0-4.8) k/uL Macrocytosis Marked A Retic Count (0.5-2.0) % Iron (65-175) ug/dL TIBC (228-460) ug/dL % Saturation (15.00-50.00) Ferritin (22.0-322.0) ng/mL Lactate Dehydrogenase 620 H (313-618) U/L Procalcitonin (0.02-0.09) ng/mL Microbiology - Last 24 Hours (Table) 03/05/20 18:22 Blood Culture - Preliminary Blood No Growth after 48 hours Assessment and Plan (1) Adenocarcinoma of right lung Current Visit: Yes Status: Acute Code(s): C34.91 - MALIGNANT NEOPLASM OF UNSP PART OF RIGHT BRONCHUS OR LUNG SNOMED Code(s): 97771458221570025 (2) Right leg DVT Current Visit: Yes Status: Acute Code(s): I82.401 - ACUTE EMBOLISM AND THOMBOS UNSP DEEP VEINS OF R LOW EXTREM SNOMED Code(s): 667456326 Plan: locally advanced stage 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 mediastinal lymphadenopathy. Patient underwent definitive treatment of concurrent chemoradiation, which he completed in 02/23/2020. Restaging after 6-8 weeks post treatment, reevaluation by the medical oncology group for possible immunotherapy. Mr. Enriquez will follow-up with us as outpatient when he is in a stable condition.
[2020-03-08 11:10] VITALS: BP 129/72; PULSE 89
[2020-03-08] MEDS: ALBUTEROL HFA INHALER INHALATION PRN (11:16)
--- NOTE | 2020-03-08 13:22 | P.PN ---
Subjective Progress Note Date: 03/08/20 On 03/08/2020, the patient is being seen for a follow-up. Doing extremely well. No respiratory difficulties. Swelling in the right lower extremity is improving compared to yesterday. The patient is currently on Eliquis. He is also on a combination of aspirin and Plavix as the patient is known to have coronary artery disease and previous stenting of the LAD. The patient is post bypass surgery. The patient is also known to be was stage III lung cancer and the patient is completed chemoradiation therapy. No hemoptysis. No pleurisy. His hemoglobinis stable for now. He remains on room air oxygen. He has been also treated with some limited diuretics. He has been afebrile since admission. The patient was covered with IV cefepime. Objective - Vital Signs Vital signs: Vital Signs Temp 98.5 F 03/08/20 08:00 Pulse 89 03/08/20 11:40 Resp 16 03/08/20 11:08 BP 129/72 03/08/20 11:08 Pulse Ox 99 03/08/20 11:08 Intake & Output 03/07/20 03/08/20 03/08/20 18:59 06:59 18:59 Intake Total 280 240 Output Total 1000 250 500 Balance -720 -250 -260 Weight 106.5 kg 106.5 kg Intake: Intake, IV Titration 50 Amount Cefepime 1 gm In Sodium 50 Chloride 0.9% 50 ml @ 100 mls/hr IVPB Q12H [facility] Rx# :[id number] Oral 230 240 Output: Urine 1000 250 500 Other: Voiding Method Toilet Urinal # Voids 1 1 # Bowel Movements 1 - Exam The patient appeared well nourished and normally developed. Vital signs as documented. Head exam is unremarkable. No scleral icterus or corneal arcus no domi. Neck is without jugular venous distension, thyromegaly, or carotid bruits. Carotid upstrokes are brisk bilaterally. Lungs are clear to auscultation and percussion. Cardiac exam reveals the PMI to be normally sized and situated. Rhythm is regular. First and second heart sounds normal. No murmurs, rubs or gallops. Abdominal exam reveals normal bowel sounds, no masses, no organomegaly and no aortic enlargement. Extremities are showing that the right lower extremity slightly more edematous compared to the left and both femoral and pedal pulses are normal.Examination of the skin revealed no evidence of significant rashes, suspicious appearing nevi or other concerning lesions.Neurologically, the patient is awake and alert and the patient does not have any focal neurological deficit. Cranial nerves are essentially intact. - Labs CBC & Chem 7: 03/08/20 06:43 03/06/20 02:57 Labs: Abnormal Lab Results - Last 24 Hours (Table) 03/06/20 03/07/20 03/08/20 Range/Units 11:33 05:12 06:43 RBC 2.60 L (4.30-5.90) m/uL Hgb 8.7 L (13.0-17.5) gm/dL Hct 27.4 L (39.0-53.0) % MCV 105.7 H (80.0-100.0) fL RDW 17.3 H (11.5-15.5) % Lymphocytes # 0.5 L (1.0-4.8) k/uL Macrocytosis Marked A RBC Folate 1,744 H (280 - 791) ng/mL Procalcitonin 0.11 H (0.02-0.09) ng/mL Microbiology - Last 24 Hours (Table) 03/05/20 18:22 Blood Culture - Preliminary Blood No Growth after 48 hours Assessment and Plan Plan: 1 right lower extremity DVT with secondary pulmonary embolism secondary to und erlying hypercoagulability related to his malignancy. 2 stage III non-small cell lung cancer post-concurrent chemoradiation therapy which drinking in the right hilar mass 3 fever most likely related to DVT 4 shortness of breath secondary to above 5 coronary artery disease, with previous cardiac catheterization and stenting of the the coronaries involving the LAD. The patient also status post coronary artery bypass surgery. 6 COPD 7 hypertension 8 hyperlipidemia 9 chronic back pain with spondylolisthesis 10 mild aortic stenosis 11 peripheral vascular disease Plan Agree on Eliquis Continue aspirin and Plavix as the patient has coronary artery disease and he has a coronary stenting Follow-up with oncology regarding his stage III non-small cell lung cancer This is a provoked event and the patient will need lifelong anticoagulation Discontinue antibiotics Therefore discharged from the pulmonary standpoint
--- NOTE | 2020-03-08 19:13 | P.DS ---
Providers Date of admission: 03/05/20 20:41 Expected date of discharge: 03/08/20 Attending physician: Sebastian Swift Consults: 03/05/20 20:39 Consult Physician Urgent Consulting Provider: Bassam Simons Consult Reason/Comments: Lung cancer, fever Do you want consulting provider notified?: Yes 03/07/20 10:45 Consult Physician Routine Consulting Provider: Sai Little Consult Reason/Comments: Recently completed XRT Do you want consulting provider notified?: Yes Primary care physician: Sharad L [place] Hospital Course: Chief Complaint: Fever History of presenting complaint: This is a pleasant [address] Cantu. He was diagnosed with non-small cell lung cancer, moderately differentiated adenocarcinoma in December 2019. It was stage III disease with mediastinal lymphadenopathy. Treated with chemoradiation completed treatment 02/23/2020. He was due for restaging studies. He developed a fever. Has some shortness of breath since the cancer. No diarrhea. No urinary symptoms. Or skin changes. Did talk about swelling of the right leg for last 3 days. No cough or sputum. Admitted with-acute DVT of the right lower extremity, possible PE, pneumonia. Patient started on IV heparin, IV cefepime. Today-patient was transitioned over to eliquis. Breathing better. Breathing improved. Up in the hallway. Patient will follow-up with his oncologist as an outpatient. restaging to be done in 6-8 weeks. Consults: Dr. Tobias from pulmonary Dr. Simons from oncology Dr. Bernabe from radiation oncology Physical examination: VITAL SIGNS: 98.5, 89, 16, 129/72, 99% room air GENERAL: Sitting up, comfortable EYES: Pupils equal. Conjunctiva normal. NECK: JVD not raised; masses not palpable. HEART: First and second heart sounds are normal; no edema. LUNGS: Respiratory rate increased; decreased breath sounds. ABDOMEN: Soft, nontender, liver spleen not palpable, no masses palpable. PSYCH: Alert and oriented x3; mood and affect normal. INVESTIGATIONS, reviewed in the clinical context: White count 3.9 hemoglobin 8.7 platelets 210 Previous testing White count 3.5 hemoglobin 8.3 platelets 202 Iron 28 TIBC 201% saturation 130.9 ferritin 1026 Admission testing: Influenza A and B- potassium 4.7 creatinine 1.04 pro-calcitonin 0.11 white count 4.9 hemoglobin 8.3 platelets 206 Chest x-ray film personally reviewed by me-possible right-sided infiltrate Doppler ultrasound DVT in the right leg from proximal femoral vein to proximal calf vein. CT angina chest-left lower lobe pulmonary embolism-could be chronic, encasement of the right upper lobe artery from large right hilar mass. Decrease in size from December 2019. Lymph nodes positive. COVID 19 P/Cr-not detected Assessment: -Extensive acute DVT of the right lower extremity extending to the proximal femoral vein and evidence of possible pulmonary embolism acute event is unsure. In the setting of lung cancer. --Moderately differentiated adenocarcinoma of the lung diagnosed in December 2019, treated with chemoradiation, with decrease in size on current computed tomography scan -Possible pneumonia suspected gram-negative organism -Coronary artery disease with prior history of stent and bypass -COPD in an ex-smoker -GERD -Essential hypertension -Hyperlipidemia -Peripheral arterial disease -Spondylolisthesis L5-S1 -IV heparin monitoring Disposition: Home Patient Condition at Discharge: Stable Plan - Discharge Summary Discharge Rx Participant: Yes New Discharge Prescriptions: New Apixaban [Eliquis Starter Pack (for VTE)] 0 mg PO DIRECTED 30 Days #1 pack Pantoprazole [Protonix] 40 mg PO AC-BID #60 tablet.dr Mcghee Multivitamins, Thera [Multivitamin (formulary)] 1 tab PO DAILY Metoprolol Tartrate [Lopressor] 100 mg PO BID Losartan [Cozaar] 25 mg PO DAILY Furosemide [Lasix] 40 mg PO Q48H Atorvastatin [Lipitor] 20 mg PO HS Aspirin EC [Ecotrin Low Dose] 81 mg PO HS Clopidogrel [Plavix] 75 mg PO DAILY Hydrocodone/Acetaminophen [Hydrocodone/Acetaminophen 7.5-325/15 Ml] 15 ml PO Q8H PRN PRN Reason: Pain Ferrous Sulfate [Iron (65 MG Elemental)] 325 mg PO DAILY Albuterol Inhaler [Ventolin Hfa Inhaler] 2 puff INHALATION RT-Q4H PRN PRN Reason: Shortness Of Breath Discontinued Pantoprazole [Protonix] 40 mg PO DAILY Discharge Medication List Aspirin EC [Ecotrin Low Dose] 81 mg PO HS 12/16/19 [History] Atorvastatin [Lipitor] 20 mg PO HS 12/16/19 [History] Clopidogrel [Plavix] 75 mg PO DAILY 12/16/19 [History] Furosemide [Lasix] 40 mg PO Q48H 12/16/19 [History] Losartan [Cozaar] 25 mg PO DAILY 12/16/19 [History] Metoprolol Tartrate [Lopressor] 100 mg PO BID 12/16/19 [History] Multivitamins, Thera [Multivitamin (formulary)] 1 tab PO DAILY 12/16/19 [History] Albuterol Inhaler [Ventolin Hfa Inhaler] 2 puff INHALATION RT-Q4H PRN 03/05/20 [History] Ferrous Sulfate [Iron (65 MG Elemental)] 325 mg PO DAILY 03/05/20 [History] Hydrocodone/Acetaminophen [Hydrocodone/Acetaminophen 7.5-325/15 Ml] 15 ml PO Q8H PRN 03/05/20 [History] Apixaban [Eliquis Starter Pack (for VTE)] 0 mg PO DIRECTED 30 Days #1 pack 03/07/20 [Rx] Pantoprazole [Protonix] 40 mg PO AC-BID #60 tablet.dr 03/08/20 [Rx] Follow up Appointment(s)/Referral(s): Sharad Cantu MD [Primary Care Provider] - 1-2 days (Office currently closed. Please call to make follow up appointment) Michael Fernandes MD [STAFF PHYSICIAN] - 1 Week (Office is currently closed. Please call to make follow up appointment) Patient Instructions/Handouts: Deep Vein Thrombosis (DC), Safe Use of Anticoagulants (DC) Discharge Disposition: HOME SELF-CARE
== END 2020-03-08 12:54 | disposition home or self-care (01) | DRG 299 ==
LOC: EC 17:22 → 3SCARD 20:41
PROVIDERS: ADMIT Hospitalist; ATTEND Hospitalist
DX: I82.411 Acute embolism and thrombosis of right femoral vein (principal); I26.99 Other pulmonary embolism without acute cor pulmonale; J15.6 Pneumonia due to other Gram-negative bacteria; C34.91 Malignant neoplasm of unspecified part of right bronchus or lung; D68.59 Other primary thrombophilia; I82.431 Acute embolism and thrombosis of right popliteal vein; I82.441 Acute embolism and thrombosis of right tibial vein; K21.9 Gastro-esophageal reflux disease without esophagitis; E78.5 Hyperlipidemia, unspecified; D53.9 Nutritional anemia, unspecified; I10 Essential (primary) hypertension; Z20.828 Contact with and (suspected) exposure to other viral communicable diseases; J44.9 Chronic obstructive pulmonary disease, unspecified; I73.9 Peripheral vascular disease, unspecified; M43.17 Spondylolisthesis, lumbosacral region; I25.10 Atherosclerotic heart disease of native coronary artery without angina pectoris; T45.1X5A Adverse effect of antineoplastic and immunosuppressive drugs, initial encounter; I35.0 Nonrheumatic aortic (valve) stenosis; G89.29 Other chronic pain; M54.9 Dorsalgia, unspecified; Z79.01 Long term (current) use of anticoagulants; Z79.02 Long term (current) use of antithrombotics/antiplatelets; Z79.899 Other long term (current) drug therapy; Z95.5 Presence of coronary angioplasty implant and graft; Z95.1 Presence of aortocoronary bypass graft; Z92.3 Personal history of irradiation; Z87.891 Personal history of nicotine dependence; Z86.79 Personal history of other diseases of the circulatory system; Z85.118 Personal history of other malignant neoplasm of bronchus and lung; Z98.890 Other specified postprocedural states; Z80.1 Family history of malignant neoplasm of trachea, bronchus and lung; Z80.6 Family history of leukemia
CPT/HCPCS: 36415; 71046; 71275; 80053; 81003; 82607; 82728; 82747; 83540; 83550; 83605; 83615; 83921; 84145; 85025; 85045; 85610; 85730; 87040; 87502; 94640; 96374; 99285

== ENCOUNTER → 2020-03-28 | Outpatient (CLI) | payer MEDICARE, OTHER ==
--- NOTE | 2020-03-28 17:38 | CT ---
EXAMINATION TYPE: CT chest w con DATE OF EXAM: 03/28/2020 COMPARISON: CTA chest 03/06/2020 HISTORY: Lung cancer CT DLP: 635.9 mGycm Automated exposure control for dose reduction was used. CONTRAST: CT scan of the chest is performed with IV Contrast, patient injected with 100 mL of Isovue 300. FINDINGS: LUNGS: There are redemonstrated areas of intralobular septal thickening of the right lung apex. Retic ular opacities of the right lobes, with decreased opacities at the superomedial and posterior right u pper lobe versus 03/06/2020, and increased multifocal groundglass and reticular opacities increased wi thin the right middle and lower lobes. Right hilar soft tissue mass again measures approximately 2.4 cm (3:28). Redemonstrated encasement and attenuation of the right upper lobe pulmonary artery. The ri ght pleural effusion is moderately decreased in size, with trace residual fluid compared to 03/06/2020 . No pneumothorax. The tracheobronchial tree is patent. MEDIASTINUM/SOFT TISSUES: Redemonstrated 1.4 cm subcarinal lymph node. Right hilar soft tissue mass. No new mediastinal, left hilar, or axillary lymphadenopathy. Cardiac size is normal. Calcified more ry artery disease. No pericardial effusion. No thoracic aortic aneurysm. There is interval decrease i n size of the left lower lobe pulmonary embolism versus 03/06/2020 comparison, with punctate residual filling defect (3:42). UPPER ABDOMEN: No adrenal nodule. OSSEOUS: Decreased osseous mineralization. Degenerative changes of the bilateral shoulders. Postsurgi kandy change of the left shoulder. Sternotomy wires IMPRESSION: 1. Right hilar lung mass and subcarinal lymph node are unchanged versus 03/06/2020. 2. Some of the patchy interstitial opacities of the right upper lobe are decreased versus 03/06/2020, while there are new patchy interstitial opacities of the right middle and right lower lobes. Findings are nonspecific and may be related to posttreatment change, infectious or inflammatory etiologies, a nd neoplastic etiology. Attention on short-term follow-up imaging. 3. Known left lower lobe pulmonary artery embolism demonstrates near complete resolution on current e xam. 4. Trace right pleural effusion is mildly decreased versus 03/06/2020.
== END | disposition home or self-care (01) ==
LOC: RADCTMAIN 09:36
PROVIDERS: ATTEND Internal Medicine Hematology & Oncology
DX: R91.8 Other nonspecific abnormal finding of lung field (principal); I26.99 Other pulmonary embolism without acute cor pulmonale; C34.11 Malignant neoplasm of upper lobe, right bronchus or lung
CPT/HCPCS: 82565; 84520; 71260; 36415; Q9967

== ENCOUNTER → 2020-04-14 | Outpatient (CLI) | payer MEDICARE, OTHER ==
--- NOTE | 2020-04-14 15:49 | CT ---
EXAMINATION TYPE: CT chest wo con DATE OF EXAM: 04/14/2020 COMPARISON: Chest CT March 28, 2020 HISTORY: Malignant neoplasm of upper lobe. Pt c.o SOB. Due to CECY, habitus, not able to complete pron e study CT DLP: 135 mGycm. Automated Exposure Control for Dose Reduction was Utilized. TECHNIQUE: CT scan of the thorax is performed without IV contrast. High resolution protocol with 1 m m sequences obtained at 10 mm intervals. FINDINGS: Exam noted suboptimal as patient unable to complete prone imaging. LUNGS: Background Moderate underlying emphysematous changes redemonstrated. Persistent reticulation a nd chronic consolidation throughout the right lung with spiculated mass or neoplasm in the right april r region causing bronchial narrowing. There are small tiny right pleural effusion increased from prior. Mild scattered reticulation and fib rotic change throughout the left lung. MEDIASTINUM: Lack of IV contrast is noted to limit evaluation for mediastinal and especially hilar a denopathy. There are no definitive additional greater than 1 cm hilar or mediastinal lymph nodes. N o cardiomegaly or pericardial effusion is seen. Post-CABG changes with mediastinal clips and sternal wires is redemonstrated. OTHER: Liver is low dense consistent with diffuse fatty infiltration. IMPRESSION: Suboptimal study. No right hilar mass or neoplasm redemonstrated. Bilateral moderate emph ysematous change. Small to tiny right pleural effusion is slightly larger from prior. Worsening conso lidation and/or atelectatic change in the right lung versus prior study. Background mild fibrotic himanshu nges felt present.
== END | disposition home or self-care (01) ==
LOC: RADCTMAIN 15:12
PROVIDERS: ATTEND Internal Medicine Hematology & Oncology
DX: J90 Pleural effusion, not elsewhere classified (principal); J43.9 Emphysema, unspecified
CPT/HCPCS: 71250

== ENCOUNTER → 2020-07-15 | Outpatient (CLI) | payer MEDICARE, OTHER ==
--- NOTE | 2020-07-15 13:27 | PE ---
EXAMINATION TYPE: PET CT fusion skull to thigh DATE OF EXAM: 07/15/2020 COMPARISON: Prior PET/CT December 28, 2019 HISTORY: Lung cancer right side progress study. Completed chemotherapy and radiation treatment. TECHNIQUE: Following the intravenous administration of 13.01 mCi of F-18 FDG, whole body images are performed from the skull base to the midthigh. Images are reviewed on the computer in the coronal, a xial, and sagittal planes. Reconstructed rotating images are created on independent workstation and reviewed on the computer. A localization and attenuation correction CT is performed in conjunction with the PET scan. Blood glucose level equals 95. SCAN: Subsequent Scan FINDINGS: SKULL BASE AND NECK: No new areas of abnormal hypermetabolic uptake. CHEST, MEDIASTINUM, AND HILAR REGION: Persistent background mild to moderate underlying emphysematous change. There is small right pleural effusion or fluid collection increased in size from prior. Ther e is interval improvement in hypermetabolic right hilar partially occlusive mass both within size and bulkiness along with hypermetabolic uptake, only mild uptake present on current study with Max SUV l ess than 2.5. There is persistent anterior superior extension axial image 88 without new hypermetabol ic uptake. No persistent enlarged or hypermetabolic subcarinal extension or adenopathy on current oliver dy. No new areas of abnormal hypermetabolic uptake. ABDOMEN AND PELVIS: No new adrenal masses. Normal excretion. Some nonspecific mild bowel uptake. No n ew abnormal hypermetabolic uptake. OSSEOUS STRUCTURES: No new areas of suspicious hypermetabolic uptake. OTHER CT: Mild calcified plaque right carotid bulb level. Overlying sternal wires and mediastinal cli ps redemonstrated. Ectatic and atherosclerotic abdominal aorta are again seen but no greater than 3.0 cm aneurysm. Diverticula in the sigmoid colon. Postsurgical change lower lumbar spine. Stable spondylolisthesis L5-S1 level. IMPRESSION: Overall Positive treatment response as detailed above.
== END | disposition home or self-care (01) ==
LOC: RADPETMAIN 09:40
PROVIDERS: ATTEND Radiology Radiation Oncology
DX: C34.11 Malignant neoplasm of upper lobe, right bronchus or lung (principal); Z87.891 Personal history of nicotine dependence
CPT/HCPCS: 78815; A9552

== ENCOUNTER → 2021-05-05 | Outpatient (CLI) | payer MEDICARE, OTHER ==
--- NOTE | 2021-05-08 07:23 | PE ---
EXAMINATION TYPE: PET CT fusion skull to thigh DATE OF EXAM: 05/05/2021 COMPARISON: Most recent PET CT July 15, 2020 and older studies. HISTORY: Right-sided lung cancer progress study originally diagnosed December 16, 2019 completed chemothe rapy and radiation treatment February 2020. TECHNIQUE: Following the intravenous administration of 10.64 mCi of F-18 FDG, whole body images are performed from the skull base to the midthigh. Images are reviewed on the computer in the coronal, a xial, and sagittal planes. Reconstructed rotating images are created on independent workstation and reviewed on the computer. A localization and attenuation correction CT is performed in conjunction with the PET scan. Blood glucose level equals 117 SCAN: Subsequent Scan FINDINGS: SKULL BASE AND NECK: No new areas of abnormal hypermetabolic uptake. CHEST, MEDIASTINUM, AND HILAR REGION: Persistent background mild to moderate underlying emphysematous change. There is stable small right pleural effusion or fluid collection from most recent prior. The re is stable right hilar partially occlusive bulky mass with persistent mild uptake present on curren t study with Max SUV less than 2.5. No significant change from most recent PET/CT near axial image 97 . There is persistent anterior superior extension axial image 91 for reference without new hypermetab olic uptake. New hypermetabolic 1.3 x 1.1 cm lymph node anterior to the SVC axial image 90. Max SUV is 3.30. No additional new areas of abnormal hypermetabolic uptake. ABDOMEN AND PELVIS: No new adrenal masses. Normal excretion. Some nonspecific bowel uptake right lowe r quadrant now present. No new abnormal hypermetabolic masses. OSSEOUS STRUCTURES: No new areas of suspicious hypermetabolic uptake. OTHER CT: Mild calcified plaque right carotid bulb level. Overlying sternal wires and mediastinal cli ps redemonstrated. Ectatic and atherosclerotic abdominal aorta are again seen but no greater than 3.0 cm aneurysm. Diverticula in the sigmoid colon. Postsurgical change lower lumbar spine. Stable spondylolisthesis L5-S1 level. IMPRESSION: Local active recurrence in the mediastinum. New mildly hypermetabolic slightly enlarged l ymph node.
== END | disposition home or self-care (01) ==
LOC: RADPETMAIN 09:24
PROVIDERS: ATTEND Internal Medicine Hematology & Oncology
DX: C34.01 Malignant neoplasm of right main bronchus (principal); C78.1 Secondary malignant neoplasm of mediastinum; R59.0 Localized enlarged lymph nodes
CPT/HCPCS: 78815; A9552

== ENCOUNTER 2021-09-08 14:25 | Emergency (ER) | payer MEDICARE, OTHER ==
[2021-09-08 14:36] VITALS: PULSE 76; RESP 18; TEMP 98
[2021-09-08] MEDS ORDERED: SODIUM CHLORIDE 0.9% 500 ML 500 ML IV STA (15:01)
[2021-09-08] MEDS ORDERED: MECLIZINE 25 MG TAB PO STA (15:02)
[2021-09-08] MEDS ORDERED: DIAZEPAM 5 MG/ML 2 ML INJ IVP STA (15:03)
--- NOTE | 2021-09-08 15:42 | ED ---
General Adult HPI - General Chief complaint: Dizziness Stated complaint: Weakness Time Seen by Provider: 09/08/21 14:25 Source: patient, EMS, RN notes reviewed, old records reviewed Mode of arrival: EMS Limitations: no limitations - History of Present Illness Initial comments: This is a 71-year-old male states he woke up this morning got out of bed and he was dizzy. Patient states movement of the head made it significantly worse and he was mildly nauseated and began to sweat quite a bit. Patient states about the bases, little bit better and he is noted that closing his eyes deftly makes symptoms better. Patient denies headache patient denies numbness or weakness. Patient states he does not feel so is going to pass out. Patient denies any ch est pain or palpitations. Patient denies difficulty breathing shortest breath. Patient denies any recent fever chills or cough per patient denies any new hearing loss or ringing in the ears. Patient denies similar symptoms in the past. Patient denies any abdominal pain. Patient denies any vomiting or diarrhea. Patient has a swollen to the legs or calf tenderness. - Related Data Home Medications Medication Instructions Recorded Confirmed Aspirin EC [Ecotrin Low Dose] 81 mg PO HS 12/16/19 03/05/20 Atorvastatin [Lipitor] 20 mg PO HS 12/16/19 03/05/20 Clopidogrel [Plavix] 75 mg PO DAILY 12/16/19 03/05/20 Furosemide [Lasix] 40 mg PO Q48H 12/16/19 03/05/20 Losartan [Cozaar] 25 mg PO DAILY 12/16/19 03/05/20 Metoprolol Tartrate [Lopressor] 100 mg PO BID 12/16/19 03/05/20 Multivitamins, Thera [Multivitamin 1 tab PO DAILY 12/16/19 03/05/20 (formulary)] Albuterol Inhaler [Ventolin Hfa 2 puff INHALATION RT-Q4H PRN 03/05/20 03/05/20 Inhaler] Ferrous Sulfate [Iron (65 MG 325 mg PO DAILY 03/05/20 03/05/20 Elemental)] Hydrocodone/Acetaminophen 15 ml PO Q8H PRN 03/05/20 03/05/20 [Hydrocodone/Acetaminophen 7.5-325/15 Ml] Previous Rx's Medication Instructions Recorded Apixaban [Eliquis Starter Pack 0 mg PO DIRECTED 30 Days #1 pack 03/07/20 (for VTE)] Pantoprazole [Protonix] 40 mg PO AC-BID #60 tablet. 03/08/20 Meclizine [Antivert] 25 mg PO TID #20 tab 09/08/21 Allergies Allergy/AdvReac Type Severity Reaction Status Date / Time No Known Allergies Allergy Verified 03/05/20 21:49 Review of Systems ROS Statement: Those systems with pertinent positive or pertinent negative responses have been documented in the HPI. ROS Other: All systems not noted in ROS Statement are negative. Past Medical History Past Medical History: Coronary Artery Disease (CAD), Cancer, Chest Pain / Angina, COPD, GERD/Reflux, Hyperlipidemia, Hypertension, Vascular Disorder Additional Past Medical History / Comment(s): Spondylolithiasis L5-S1, back pain, generalized swelling History of Any Multi-Drug Resistant Organisms: None Reported Past Surgical History: Back Surgery, Coronary Bypass/CABG, Heart Catheterization, Heart Catheterization With Stent, Orthopedic Surgery Additional Past Surgical History / Comment(s): 1969 L knee injury with surgery, 1987 vasectomy, 1989 cervical surgery with bont donar from hip, PCI with stents, L shoulder surgery d/t injury, bilateral carpal tunnel releases, 2011 AAA repair, post AAA incision infection/muscle flap, 2013 stent R leg behind knee, 2 lumbar spine surgeries, 2017 CABG-3 vessel Past Anesthesia/Blood Transfusion Reactions: No Reported Reaction Additional Past Anesthesia/Blood Transfusion Reaction / Comment(s): Pt has clausterphobia. Date of Last Stent Placement:: 12/09/19 Cait Cool Past Psychological History: No Psychological Hx Reported Smoking Status: Former smoker Past Alcohol Use History: Occasional Past Drug Use History: None Reported - Past Family History Father Family Medical History: Cancer Additional Family Medical History / Comment(s): Father of small cell lung cancer. Mother Family Medical History: Cancer Additional Family Medical History / Comment(s): Mother had leukemia. General Exam - General Exam Comments Initial Comments: GENERAL: Patient is well-developed and well-nourished. Patient is nontoxic and well- hydrated and is in mild distress. ENT: Neck is soft and supple. No significant lymphadenopathy is noted. Oropharynx is clear. Moist mucous membranes. Neck has full range of motion without eliciting any pain. EYES: The sclera were anicteric and conjunctiva were pink and moist. Extraocular movements were intact and pupils were equal round and reactive to light. Eyelids were unremarkable. PULMONARY: Unlabored respirations. Good breath sounds bilaterally. No audible rales rhonchi or wheezing was noted. CARDIOVASCULAR: There is a regular rate and rhythm without any murmurs gallops or rubs. ABDOMEN: Soft and nontender with normal bowel sounds. SKIN: Skin is clear with no lesions or rashes and otherwise unremarkable. NEUROLOGIC: Patient is alert and oriented x3. Cranial nerves II through XII are grossly intact. Motor and sensory are also intact. Normal speech, volume and content. Symmetrical smile. Finger to nose testing is normal bilaterally MUSCULOSKELETAL: Normal extremities with adequate strength and full range of motion. LYMPHATICS: No significant lymphadenopathy is noted PSYCHIATRIC: Normal psychiatric evaluation. Limitations: no limitations Course Vital Signs 09/08/21 09/08/21 14:27 15:36 Temperature 98.0 F Pulse Rate 76 76 Respiratory 18 18 Rate Blood Pressure 149/110 135/78 O2 Sat by Pulse 93 L 98 Oximetry Medical Decision Making - Medical Decision Making EKG shows normal sinus rhythm at 74 bpm with occasional PVC NJ interval is 201 QRSs 100 QT interval 410 QTC is 437. Patient's EKG shows no ST segment elevation CT of the brain shows no acute abnormality. Patient received Antivert and Valium in the emergency department. Patient was getting considerably better. - Lab Data Result diagrams: 09/08/21 15:20 09/08/21 15:20 Lab Results 09/08/21 09/08/21 09/08/21 Range/Units 15:20 15:20 15:20 WBC 4.0 (3.8-10.6) k/uL RBC 3.67 L (4.30-5.90) m/uL Hgb 13.0 (13.0-17.5) gm/dL Hct 39.2 (39.0-53.0) % MCV 106.8 H (80.0-100.0) fL MCH 35.4 H (25.0-35.0) pg MCHC 33.1 (31.0-37.0) g/dL RDW 16.3 H (11.5-15.5) % Plt Count 177 (150-450) k/uL MPV 8.8 Neutrophils % 84 % Lymphocytes % 11 % Monocytes % 4 % Eosinophils % 1 % Basophils % 0 % Neutrophils # 3.4 (1.3-7.7) k/uL Lymphocytes # 0.4 L (1.0-4.8) k/uL Monocytes # 0.1 (0-1.0) k/uL Eosinophils # 0.0 (0-0.7) k/uL Basophils # 0.0 (0-0.2) k/uL Anisocytosis Slight Macrocytosis Moderate PT 11.4 (9.0-12.0) sec INR 1.1 (<1.2) APTT 23.9 (22.0-30.0) sec Sodium 136 L (137-145) mmol/L Potassium 4.6 (3.5-5.1) mmol/L Chloride 101 (98-107) mmol/L Carbon Dioxide 28 (22-30) mmol/L Anion Gap 7 mmol/L BUN 23 H (9-20) mg/dL Creatinine 1.08 (0.66-1.25) mg/dL Est GFR (CKD-EPI)AfAm 78 (>60 ml/min/1.73 sqM) Est GFR (CKD-EPI)NonAf 68 (>60 ml/min/1.73 sqM) Glucose 142 H (74-99) mg/dL Calcium 8.8 (8.4-10.2) mg/dL Magnesium 2.0 (1.6-2.3) mg/dL Total Bilirubin 1.5 H (0.2-1.3) mg/dL AST 54 (17-59) U/L ALT 53 H (4-49) U/L Alkaline Phosphatase 80 (38-126) U/L Troponin I (0.000-0.034) ng/mL Total Protein 7.6 (6.3-8.2) g/dL Albumin 4.0 (3.5-5.0) g/dL 09/08/21 Range/Units 15:20 WBC (3.8-10.6) k/uL RBC (4.30-5.90) m/uL Hgb (13.0-17.5) gm/dL Hct (39.0-53.0) % MCV (80.0-100.0) fL MCH (25.0-35.0) pg MCHC (31.0-37.0) g/dL RDW (11.5-15.5) % Plt Count (150-450) k/uL MPV Neutrophils % % Lymphocytes % % Monocytes % % Eosinophils % % Basophils % % Neutrophils # (1.3-7.7) k/uL Lymphocytes # (1.0-4.8) k/uL Monocytes # (0-1.0) k/uL Eosinophils # (0-0.7) k/uL Basophils # (0-0.2) k/uL Anisocytosis Macrocytosis PT (9.0-12.0) sec INR (<1.2) APTT (22.0-30.0) sec Sodium (137-145) mmol/L Potassium (3.5-5.1) mmol/L Chloride (98-107) mmol/L Carbon Dioxide (22-30) mmol/L Anion Gap mmol/L BUN (9-20) mg/dL Creatinine (0.66-1.25) mg/dL Est GFR (CKD-EPI)AfAm (>60 ml/min/1.73 sqM) Est GFR (CKD-EPI)NonAf (>60 ml/min/1.73 sqM) Glucose (74-99) mg/dL Calcium (8.4-10.2) mg/dL Magnesium (1.6-2.3) mg/dL Total Bilirubin (0.2-1.3) mg/dL AST (17-59) U/L ALT (4-49) U/L Alkaline Phosphatase (38-126) U/L Troponin I <0.012 (0.000-0.034) ng/mL Total Protein (6.3-8.2) g/dL Albumin (3.5-5.0) g/dL Disposition Clinical Impression: Vertigo Disposition: HOME SELF-CARE Condition: Good Instructions (If sedation given, give patient instructions): Vertigo (ED) Prescriptions: Meclizine [Antivert] 25 mg PO TID #20 tab Is patient prescribed a controlled substance at d/c from ED?: No Referrals: Sharad Cantu MD [Primary Care Provider] - 1-2 days Time of Disposition: 16:45
[2021-09-08 15:50] VITALS: BP 135/78
[2021-09-08 16:01] LABS: Anisocytosis Slight; Basophils % (A) 0 %; Eosinophils % (A) 1 %; HCT 39.2 % (39.0-53.0); Lymphocytes # (A) 0.4 k/uL (1.0-4.8); Lymphocytes % (A) 11 %; MCH 35.4 pg (25.0-35.0); MCHC 33.1 g/dL (31.0-37.0); MCV 106.8 fL (80.0-100.0); Macrocytosis Moderate; Mean Platelet Volume 8.8; Monocytes # (A) 0.1 k/uL (0-1.0); Monocytes % (A) 4 %; Neutrophils # (A) 3.4 k/uL (1.3-7.7); Neutrophils % (A) 84 %; Platelet Count 177 k/uL (150-450); RBC 3.67 m/uL (4.30-5.90); RDW 16.3 % (11.5-15.5)
[2021-09-08 16:05] LABS: INR 1.1 (<1.2)
[2021-09-08 16:06] LABS: Partial Thromboplastin Time 23.9 sec (22.0-30.0); Prothrombin Time 11.4 sec (9.0-12.0)
[2021-09-08 16:08] LABS: Calcium 8.8 mg/dL (8.4-10.2); Potassium 4.6 mmol/L (3.5-5.1); Total Bilirubin 1.5 mg/dL (0.2-1.3); Total Protein 7.6 g/dL (6.3-8.2)
--- NOTE | 2021-09-08 16:17 | CT ---
EXAMINATION TYPE: CT brain wo con DATE OF EXAM: 09/08/2021 COMPARISON: CT dated 12/28/2019 HISTORY: Weakness, AMS CT DLP: 1157.4 mGycm Automated exposure control for dose reduction was used. TECHNIQUE: CT scan of the brain is performed without IV contrast administration. FINDINGS: Brain volume loss changes, likely age-related. Bilateral cerebral white matter hypodensities, likely representing mild chronic microvascular ischemic changes. Scattered arterial atherosclerotic calcific ations. No acute intracranial hemorrhage. No gross acute cortical infarct. No midline shift, herniation or ve ntriculomegaly. Unremarkable long-white matter differentiation, basal cisterns, sella and CP angles. No gross space-o ccupying lesion, vasogenic edema or mass effect. Unremarkable orbits. Clear visualized paranasal sinuses. Opacified left inferior mastoid air cells. U nremarkable calvarial bones. IMPRESSION: No acute intracranial abnormality or gross space-occupying lesion by this nonenhanced CT scan. Incide ntal findings as described above.
--- NOTE | 2021-09-08 16:34 | XR ---
EXAMINATION TYPE: XR chest 2V DATE OF EXAM: 09/08/2021 COMPARISON: X-ray dated 03/05/2020 HISTORY: Chest pain TECHNIQUE: Frontal and lateral views of the chest are obtained. FINDINGS: Loss of volume of the right lung, progressed compared to the previous. Infiltration is seen in the ri ght upper lung zone mainly centrally, appreciated on the previous PET scan and could be related to pr evious radiation treatment however underlying residual lung lesion cannot be excluded. Increased density of the left lower lobe, nonspecific. Grossly unremarkable remainder of the lungs. N o sizable pleural effusion. No definite pneumothorax. No gross cardiomegaly. Sternotomy wire sutures. IMPRESSION: As above.
== END 2021-09-08 17:30 | disposition home or self-care (01) ==
LOC: EC 14:25
DX: R42 Dizziness and giddiness (principal); I25.10 Atherosclerotic heart disease of native coronary artery without angina pectoris; J44.9 Chronic obstructive pulmonary disease, unspecified; K21.9 Gastro-esophageal reflux disease without esophagitis; E78.5 Hyperlipidemia, unspecified; I10 Essential (primary) hypertension; Z79.82 Long term (current) use of aspirin; Z79.01 Long term (current) use of anticoagulants; Z79.02 Long term (current) use of antithrombotics/antiplatelets; Z95.1 Presence of aortocoronary bypass graft; Z87.891 Personal history of nicotine dependence
CPT/HCPCS: 99285; 96374; 36415; 93005; 80053; 83735; 84484; 85025; 85610; 85730; 71046; 70450; J3360

== ENCOUNTER → 2021-09-15 | Outpatient (CLI) | payer MEDICARE, OTHER ==
--- NOTE | 2021-09-15 14:52 | PE ---
EXAMINATION TYPE: PET CT fusion skull to thigh DATE OF EXAM: 09/15/2021 COMPARISON: Prior PET/CT May 05, 2021 and older studies HISTORY: Right-sided lung cancer progress study originally diagnosed December 16, 2019 completed chemothe rapy and radiation treatment April 2020 TECHNIQUE: Following the intravenous administration of 9.6 mCi of F-18 FDG, whole body images are pe rformed from the skull base to the midthigh. Images are reviewed on the computer in the coronal, axi al, and sagittal planes. Reconstructed rotating images are created on independent workstation and re viewed on the computer. A localization and attenuation correction CT is performed in conjunction wi th the PET scan. Blood glucose level equals 84. SCAN: Subsequent Scan FINDINGS: SKULL BASE AND NECK: No new areas of abnormal hypermetabolic uptake. CHEST, MEDIASTINUM, AND HILAR REGION: Persistent background mild to moderate underlying emphysematous change. There is stable small size ametabolic right pleural effusion or fluid collection. There is s table right hilar scar like mass without abnormal hypermetabolic uptake near axial images 89 through 105 with medial suprahilar extension. No significant change from most recent PET/CT . Resolved mildly hypermetabolic slightly enlarged lymph node anterior to the SVC. No new areas of abno rmal hypermetabolic uptake in the thorax. ABDOMEN AND PELVIS: No new adrenal masses. Normal excretion. Some nonspecific bowel uptake is redemon strated. No new abnormal hypermetabolic masses. OSSEOUS STRUCTURES: No new areas of suspicious hypermetabolic uptake. OTHER CT: Mild calcified plaque right carotid bulb level redemonstrated. Overlying sternal wires and mediastinal clips redemonstrated. Ectatic and atherosclerotic abdominal aorta are again seen but no g reater than 3.0 cm aneurysm. Diverticula in the sigmoid colon. Postsurgical change lower lumbar spine posteriorly redemonstrated. Stable spondylolisthesis L5-S1 lev el. IMPRESSION: Positive treatment response to the abnormal mediastinal lymph node. No suspicious hyperme tabolic uptake currently to suggest residual active neoplasm.
== END | disposition home or self-care (01) ==
LOC: RADPETMAIN 11:53
PROVIDERS: ATTEND Internal Medicine Hematology & Oncology
DX: C34.11 Malignant neoplasm of upper lobe, right bronchus or lung (principal)
CPT/HCPCS: 78815; A9552

== ENCOUNTER → 2022-04-20 | Outpatient (CLI) | payer MEDICARE, OTHER ==
--- NOTE | 2022-04-20 15:34 | PE ---
EXAMINATION TYPE: PET CT fusion skull to thigh DATE OF EXAM: 04/20/2022 COMPARISON: Prior PET/CT September 15, 2021 and older studies HISTORY: Right-sided lung cancer progress study originally diagnosed December 16, 2019. Completed immuno therapy 2020. TECHNIQUE: Following the intravenous administration of 13.0 mCi of F-18 FDG, whole body images are p erformed from the skull base to the midthigh. Images are reviewed on the computer in the coronal, ax ial, and sagittal planes. Reconstructed rotating images are created on independent workstation and r eviewed on the computer. A localization and attenuation correction CT is performed in conjunction w ith the PET scan. Blood glucose level equals 117 SCAN: Subsequent Scan FINDINGS: SKULL BASE AND NECK: No new areas of abnormal hypermetabolic uptake. CHEST, MEDIASTINUM, AND HILAR REGION: Persistent background mild to moderate underlying emphysematous change. There is larger more moderate size but remaining ametabolic right pleural effusion or fluid collection most prominent posteriorly. There is stable right hilar scar like mass without abnormal hy permetabolic uptake near axial images 81 through 100 with medial suprahilar extension. Abrupt cut off of right upper lobe bronchi and central bronchial narrowing redemonstrated. No significant change fr om most recent PET/CT . No new areas of abnormal hypermetabolic uptake in the thorax. ABDOMEN AND PELVIS: No new adrenal masses. Normal excretion. Some nonspecific bowel uptake is redemon strated. No new areas of abnormal hypermetabolic uptake. OSSEOUS STRUCTURES: No new areas of suspicious hypermetabolic uptake. OTHER CT: Mild calcified plaque right carotid bulb level redemonstrated. Overlying sternal wires and mediastinal clips redemonstrated. Ectatic and atherosclerotic abdominal aorta is redemonstrated witho ut greater than 3.0 cm aneurysm. Diverticula in the sigmoid colon redemonstrated. Postsurgical change lower lumbar spine posteriorly redemonstrated. Stable spondylolisthesis L5-S1 lev el. IMPRESSION: No new areas of abnormal hypermetabolic uptake currently to suggest recurrent active neop lasm. Enlarging but ametabolic right-sided pleural effusion is however noted.
== END | disposition home or self-care (01) ==
LOC: RADPETMAIN 09:18
PROVIDERS: ATTEND Internal Medicine Hematology & Oncology
DX: C34.11 Malignant neoplasm of upper lobe, right bronchus or lung (principal); J90 Pleural effusion, not elsewhere classified
CPT/HCPCS: 78815; A9552

== ENCOUNTER → 2023-01-05 | Outpatient (CLI) | payer MEDICARE, OTHER ==
--- NOTE | 2023-01-06 10:01 | PE ---
EXAMINATION TYPE: PET CT fusion skull to thigh DATE OF EXAM: 01/05/2023 CLINICAL INDICATION:Male, 72 years old with history of C34.11; TECHNIQUE: Following the intravenous administration of 11.0 mCi of F-18 FDG, whole body images are performed from the skull base to the midthigh. Images are reviewed on the computer in the coronal, a xial, and sagittal planes. Reconstructed rotating images are created on independent workstation and reviewed on the computer. A non-contrast CT is performed in conjunction with the PET scan. Glucose level 114 mg/dL COMPARISON: CT 04/14/2020, PET/CT 10/05/2022, 04/20/2022, FINDINGS: Mediastinal SUV mean is 1.7. Hepatic parenchyma SUV mean is 2.1 . SKULL BASE AND NECK: No suspicious radiotracer activity. CHEST, MEDIASTINUM, AND HILAR REGION: Abnormal FDG activity including: * Right upper lung pulmonary nodule Max SUV 4.0, previously 5.3 area of consolidation in totality me asures 2.8 x 2.1 cm however the area of FDG activity measures on PET imaging 1.6 cm. * Small pulmonary nodule more laterally in width and pulmonary hilum series 3 image 82 measuring 5 m m Max SUV 1.3 similar in size to 10/05/2022. * New Right pulmonary hilum abnormal FDG activity max 5.3. Measuring the lesions is difficult IV con trast. ABDOMEN AND PELVIS: No suspicious radiotracer activity. MUSCULOSKELETAL STRUCTURES: No suspicious radiotracer activity. Degenerative uptake within the left t ransverse process of C3-C4. OTHER CT: Atherosclerosis of the arterial vascular. There is sternotomy wires present. Severe degener ation changes of the shoulders. Right pleural effusion. Severe coronary artery calcifications. Nonobs tructing left renal calculi measuring up to 6 mm post surgical changes to the lower spine. Scattered colonic diverticula. Bilateral fat-containing inguinal hernias. Mild emphysema changes are present. IMPRESSION: 1. Right upper lobe nodule has decreased in metabolic activity . However, There is new/more pronounc ed metastatic disease to the right pulmonary hilum. 2. Indeterminate additional right upper lobe pulmonary nodule measuring 5 mm is also present. Unchan ged from 10/05/2022.
== END | disposition home or self-care (01) ==
LOC: RADPETMAIN 08:29
PROVIDERS: ATTEND Internal Medicine Hematology & Oncology
DX: C34.11 Malignant neoplasm of upper lobe, right bronchus or lung (principal); R91.1 Solitary pulmonary nodule
CPT/HCPCS: 78815; A9552

== ENCOUNTER 2023-02-11 11:14 | Day surgery (SDC) | payer MEDICARE, OTHER ==
[~2023-02-11 11:14] MED LIST changes: -ALBUTEROL NEB (CONC) 2.5 MG/0.5 ML INHALATION ONE; -LACTATED RINGERS 1,000 ML IV SCH; -LIDOCAINE 2% (PF) 20 MG/ML 5 ML VIAL INHALATION ONE; -LIDOCAINE VISCOUS 300 MG/15 ML CUP MUCOUS MEM ONE; -SODIUM CHLORIDE 0.9% 1,000 ML IV SCH; +SODIUM CHLORIDE 0.9% 500 ML 500 ML in EMPTY BAG 1 BAG IV PRN
[2023-02-11 11:39] VITALS: RESP 18; TEMP 98
[2023-02-11 12:37] VITALS: BP 116/77; PULSE 98
--- NOTE | 2023-02-11 12:43 | XR ---
EXAMINATION TYPE: XR chest 2V DATE OF EXAM: 02/11/2023 COMPARISON: 09/08/21 HISTORY: post thoracentesis TECHNIQUE: Frontal and lateral views of the chest are obtained. FINDINGS: Scattered senescent parenchymal changes noted. Hyperinflation compatible with COPD. Right-sided pleural effusion is smaller in size. No evidence for sizable pneumothorax. Right hilar ma ss persists. Heart size is stable. Mediastinal structures are stable and grossly unremarkable. Degenerative changes dorsal spine. IMPRESSION: 1. Right-sided pleural effusion is smaller in size. No evidence for sizable pneumothorax.
--- NOTE | 2023-02-11 16:10 | P.PCN ---
Date of Procedure: 02/11/23 Preoperative Diagnosis: pleural effusion, right Postoperative Diagnosis: same Procedure(s) Performed: thoracentesis, right Anesthesia: local Surgeon: Eric Tobias Estimated Blood Loss (ml): 0 Pathology: other Condition: stable Disposition: same day Operative Findings: A time out was performed and the chest x-ray was reviewed, the appropriate side was confirmed and marked. My hands were washed immediately prior to the procedure. I wore a surgical cap, mask with protective eyewear, sterile gown and sterile gloves throughout the procedure. The patient was prepped and draped in a sterile manner using chlorhexidine scrub after the appropriate level was percussed and confirmed by ultrasound. 1% lidocaine was used to anesthesize the skin, subcutaneous tissue, superior aspect of the rib periosteum and parietal pleura. A finder needle was then introduced over the superior aspect of the rib to locate the pleural fluid; 2colored fluid was aspirated at a depth of approximately 2 cm. A 10-blade scalpel was used to randall the skin at the insertion site. The [id number] needle was then introduced through the skin incision into the pleural space using negative aspiration pressure and the red colometric indicator to confirm appropriate positioning of the needle. The thoracentesis catheter was then threaded without difficulty.900 ml of turbid colored fluid was removed without difficulty. The catheter was then removed. No immediate complications were noted during the procedure. A post-procedure chest x-ray is pending at the time of this note. The fluid will be sent for studies. Estimated blood loss is 0cc
[2023-02-11 21:11] LABS: Appearance,BF Slightly Hazy (Clear)
[2023-02-11 22:19] LABS: Glucose, BF Source Pleural Fluid; Glucose, Body Fluid 115 mg/dL; LDH, Body Fluid Source Pleural Fluid; T. Protein, Body Fluid Source Pleural Fluid; Total Protein, Body Fluid >3600 mg/dL
== END 2023-02-12 10:28 | disposition home or self-care (01) ==
LOC: PROCWHC3 11:14
PROVIDERS: ATTEND Internal Medicine Critical Care Medicine
DX: J90 Pleural effusion, not elsewhere classified (principal); I11.0 Hypertensive heart disease with heart failure; I50.9 Heart failure, unspecified; E78.5 Hyperlipidemia, unspecified; I25.10 Atherosclerotic heart disease of native coronary artery without angina pectoris; J44.9 Chronic obstructive pulmonary disease, unspecified; I73.9 Peripheral vascular disease, unspecified; I25.5 Ischemic cardiomyopathy; Z85.118 Personal history of other malignant neoplasm of bronchus and lung; Z88.8 Allergy status to other drugs, medicaments and biological substances; Z79.01 Long term (current) use of anticoagulants; Z79.899 Other long term (current) drug therapy; Z79.02 Long term (current) use of antithrombotics/antiplatelets; Z79.51 Long term (current) use of inhaled steroids; Z87.891 Personal history of nicotine dependence; Z86.711 Personal history of pulmonary embolism; Z95.1 Presence of aortocoronary bypass graft
CPT/HCPCS: 32554; 71046; 82945; 83615; 84157; 87070; 87075; 87116; 87205; 87206; 88108; 88305; 88341; 88342; 89050

== ENCOUNTER → 2023-04-11 | Outpatient (CLI) | payer MEDICARE, OTHER ==
--- NOTE | 2023-04-12 07:50 | PE ---
EXAMINATION TYPE: PET CT fusion skull to thigh DATE OF EXAM: 04/11/2023 CLINICAL INDICATION:Male, 72 years old with history of C34.11 LUNG CANCER; TECHNIQUE: Following the intravenous administration of 10.3 mCi of F-18 FDG, whole body images are performed from the skull base to the midthigh. Images are reviewed on the computer in the coronal, a xial, and sagittal planes. Reconstructed rotating images are created on independent workstation and reviewed on the computer. A non-contrast CT is performed in conjunction with the PET scan. Glucose level 125 mg/dL CT DLP: 981 mGycm, Automated exposure control for dose reduction was used. COMPARISON: CT None, PET/CT most recent 01/05/2023, FINDINGS: Mediastinal SUV mean is 3.6. Hepatic parenchyma SUV mean is 3.3. SKULL BASE AND NECK: No suspicious radiotracer activity. CHEST, MEDIASTINUM, AND HILAR REGION: Abnormal FDG activity including: * Right upper lung pulmonary nodule Max SUV 3.4, previously 4.0, 5.3 area of consolidation is unchan ged measuring roughly 2.8 x 2.1 cm however the area of FDG activity measures on PET imaging 1.6 cm. * Small pulmonary nodule more laterally of the pulmonary hilum measuring 6 mm and previously 4 mm, M ax SUV 3.3, previously 1.3 * Right pulmonary hilum abnormal FDG activity max 11.4, previously 5.3. Measuring the lesions is dif ficult IV contrast. * Prevascular space lymph node max SUV 7.0. Measuring 13 mm in short axis. ABDOMEN AND PELVIS: No suspicious radiotracer activity. MUSCULOSKELETAL STRUCTURES: No suspicious radiotracer activity. Degenerative uptake within the left t ransverse process of C3-C4. OTHER CT: Atherosclerosis of the arterial vascular. There is sternotomy wires present. Severe degener ation changes of the shoulders. Right pleural effusion. Severe coronary artery calcifications. Nonobs tructing left renal calculi measuring up to 6 mm post surgical changes to the lower spine. Scattered colonic diverticula. Bilateral fat-containing inguinal hernias. Mild emphysema changes are present. IMPRESSION: Findings concerning for progression of disease with increasing metabolic activity of the mediastinal lymph nodes in the right pulmonary hilum and a new prevascular space lymph node with increased metabo lic activity. Also pulmonary nodule which is increase in metabolic activity.
== END | disposition home or self-care (01) ==
LOC: RADPETMAIN 11:49
PROVIDERS: ATTEND Internal Medicine Hematology & Oncology
DX: C34.11 Malignant neoplasm of upper lobe, right bronchus or lung (principal); R91.1 Solitary pulmonary nodule
CPT/HCPCS: 78815; A9552

== ENCOUNTER → 2023-09-12 | Outpatient (CLI) | payer MEDICARE, OTHER ==
--- NOTE | 2023-09-13 14:52 | PE ---
EXAMINATION TYPE: PET CT fusion skull to thigh DATE OF EXAM: 09/12/2023 CLINICAL INDICATION:Male, 73 years old with history of C34.11 Lung CA; TECHNIQUE: Following the intravenous administration of 11.59 mCi of F-18 FDG, whole body images are performed from the skull base to the midthigh. Images are reviewed on the computer in the coronal, axial, and sagittal planes. Reconstructed rotating images are created on independent workstation and reviewed on the computer. A non-contrast CT is performed in conjunction with the PET scan. Glucose level 113 mg/dL CT DLP: 975 mGycm, Automated exposure control for dose reduction was used. COMPARISON: CT None, PET/CT 04/12/2023, FINDINGS: Mediastinal SUV mean is 2.1. Hepatic parenchyma SUV mean is 3.4. SKULL BASE AND NECK: No suspicious radiotracer activity. CHEST, MEDIASTINUM, AND HILAR REGION: Abnormal FDG activity including: * Right upper lung pulmonary nodule Max SUV 4.1, previously 3.4, 4.0, 5.3 area of consolidation is unchanged cm. * Small pulmonary nodule more laterally not visualized due to consolidation changes. * Right pulmonary hilum abnormal FDG activity max 12.6, previously 11.4, 5.3. Measuring the lesions is difficult IV contrast. * Prevascular space lymph node max SUV 8.2, previously 7.0. Measuring 13 mm in short axis. ABDOMEN AND PELVIS: No suspicious radiotracer activity. MUSCULOSKELETAL STRUCTURES: No suspicious radiotracer activity. Degenerative uptake within the left t ransverse process of C3-C4. OTHER CT: Atherosclerosis of the arterial vascular. There are sternotomy wires present. Severe degene ration changes of the shoulders. Right pleural effusion. Severe coronary artery calcifications. Nonob structing left renal calculi measuring up to 6 mm post surgical changes to the lower spine. Scattered colonic diverticula. Bilateral fat-containing inguinal hernias. Mild emphysema changes are present. IMPRESSION: Increase in metabolic activity within the right posterior hilum lymph node, relatively stable uptake in the consolidation in the right upper lung and increase in prevascular space lymph node about activ ity. Findings overall suggests minimally progressive disease.
== END | disposition home or self-care (01) ==
LOC: RADPETMAIN 09:18
PROVIDERS: ATTEND Internal Medicine Hematology & Oncology
DX: C34.11 Malignant neoplasm of upper lobe, right bronchus or lung (principal)
CPT/HCPCS: 78815; A9552

== ENCOUNTER → 2023-12-12 | Outpatient (CLI) | payer MEDICARE, OTHER ==
--- NOTE | 2023-12-13 09:12 | PE ---
EXAMINATION TYPE: PET CT fusion skull to thigh DATE OF EXAM: 12/12/2023 COMPARISON: No recent pertinent CT Prior PET/CT: 09/12/2023 HISTORY: Right upper lobe lung cancer TECHNIQUE: Following the intravenous administration of 9.23 mCi of F-18 FDG, whole body images are p erformed from the skull base to the midthigh. Images are reviewed on the computer in the coronal, ax ial, and sagittal planes. Reconstructed rotating images are created on independent workstation and r eviewed on the computer. A localization and attenuation correction CT is performed in conjunction w ith the PET scan. DLP: 923.76 mGycm SCAN: Subsequent Blood glucose: 119 mg/dL Average Mediastinum SUV: 2.66 Average Liver SUV: 3.48 FINDINGS: NECK: No abnormal uptake THORAX: There are 2 adjacent foci of radiotracer uptake in the right perihilar region, image 91, SUV 10.92 and 8.74. Previously 7.96, 7.67. An additional area of uptake is within the periaortic region p retracheal space, image 96, SUV 7.48. Previous SUV 8.12. There is focal uptake posterior to the right main bronchus, image 97, SUV 12.39. Previous SUV 6.738 Findings are suspicious for metastatic diseas e. ABDOMEN: No suspicious uptake PELVIS: No suspicious uptake OSSEOUS STRUCTURES: No suspicious uptake LOCALIZATION CT: Moderately large right pleural effusion is present. Some small pericardial effusion is present. COMPARISON: SUV values are increasing and previous areas of uptake. IMPRESSION: 1. Increasing SUV values at previous areas of uptake. No new lesions are identified. 2. Moderate right pleural effusion. Minimal pericardial effusion may be present
== END | disposition home or self-care (01) ==
LOC: RADPETMAIN 10:17
PROVIDERS: ATTEND Internal Medicine Hematology & Oncology
DX: C34.11 Malignant neoplasm of upper lobe, right bronchus or lung (principal); J90 Pleural effusion, not elsewhere classified
CPT/HCPCS: 78815; A9552

== ENCOUNTER → 2024-04-09 | Outpatient (CLI) | payer MEDICARE, OTHER ==
--- NOTE | 2024-04-09 17:20 | PE ---
EXAMINATION TYPE: PET CT fusion skull to thigh DATE OF EXAM: 04/09/2024 CLINICAL INDICATION:Male, 73 years old with history of C34.11 LUNG CANCER; TECHNIQUE: Following the intravenous administration of 11.49 mCi of F-18 FDG, whole body images are performed from the skull base to the midthigh. Images are reviewed on the computer in the coronal, axial, and sagittal planes. Reconstructed rotating images are created on independent workstation and reviewed on the computer. A non-contrast CT is performed in conjunction with the PET scan. Glucose level 115 mg/dL CT DLP: 907.77 mGycm, Automated exposure control for dose reduction was used. COMPARISON: CT 04/14/2020, PET/CT 12/12/2023, 09/12/2023, 04/11/2023, 01/05/2023, 10/05/2022, 04/20/2022, , MRI: None FINDINGS: Mediastinal SUV mean is 2.6. Hepatic parenchyma SUV mean is 3.0. SKULL BASE AND NECK: No suspicious radiotracer activity. CHEST, MEDIASTINUM, AND HILAR REGION: Redemonstration of right upper perihilar mass measuring 4.5 x 2.8 cm, previously measured grossly 4.1 x 3.1 cm. Demonstrates a maximum SUV of 16.5, previously 14.6. This results in right posterior upper lung postobstructive atelectasis with some focal regions of FDG uptake with a maximum SUV of 6.2. Right perinephric prevascular space enlarged lymph node measuring 2.7 x 1.6 cm, previously measured 2 .1 x 1.6 cm. Demonstrates a maximum SUV of 11.4, previously 9.7. New anterior left chest subcutaneous tissue 1.5 cm nodule (series 3, image 87). This demonstrates a m aximum SUV of 2.5. ABDOMEN AND PELVIS: No suspicious radiotracer activity. MUSCULOSKELETAL STRUCTURES: No suspicious radiotracer activity. Degenerative uptake within the left t ransverse process of C3-C4 again. Radiotracer uptake identified around both shoulders related to adva nced degenerative changes. OTHER CT: Atherosclerosis of the arterial vascular. There are sternotomy wires present. Severe degene ration changes of the shoulders. Large right pleural effusion redemonstrated. Post-CABG changes with coronary artery calcifications and/or stents. Nonobstructing bilateral renal calculi. Post-surgical c hanges to the lower spine. Scattered colonic diverticula. Small right inguinal hernia containing fat. Mild emphysema changes are present. [id number] osteoarthritic changes of both hips. IMPRESSION: 1. Mild progression of disease with marginal increase in size and FDG activity involving a right sup erior perihilar mass and right periaortic mediastinal metastatic lymph node. 2. New left upper anterior chest wall subcutaneous tissue 1.5 cm nodule with FDG activity at backgro und. Probable inflammatory/infectious nodule. Attention on follow-up exam. 3. Large right pleural effusion redemonstrated with postobstructive atelectasis within the right upp er lung from #1. [facility], , 04/09/2024 5:17 PM
== END | disposition home or self-care (01) ==
LOC: RADPETMAIN 10:18
PROVIDERS: ATTEND Internal Medicine Hematology & Oncology
DX: C34.11 Malignant neoplasm of upper lobe, right bronchus or lung (principal); C78.01 Secondary malignant neoplasm of right lung; R22.2 Localized swelling, mass and lump, trunk; J90 Pleural effusion, not elsewhere classified; J98.11 Atelectasis; M16.0 Bilateral primary osteoarthritis of hip; K57.30 Diverticulosis of large intestine without perforation or abscess without bleeding; K40.90 Unilateral inguinal hernia, without obstruction or gangrene, not specified as recurrent
CPT/HCPCS: 78815; A9552

== ENCOUNTER → 2024-05-20 | Day surgery (SDC) | payer MEDICARE, OTHER ==
[~2024-05-20] MED LIST changes: +SODIUM CHLORIDE 0.9% 250 ML in EMPTY BAG 1 BAG IV PRN
[2024-05-20 08:54] VITALS: RESP 16; TEMP 97.5
[2024-05-20 09:57] VITALS: BP 106/53; PULSE 76
[2024-05-21 02:07] LABS: Glucose, BF Source Pleural Fluid; Glucose, Body Fluid 82 mg/dL; LDH, Body Fluid Source Pleural Fluid; T. Protein, Body Fluid Source Pleural Fluid; Total Protein, Body Fluid >3600 mg/dL
[2024-05-21 02:27] LABS: Appearance,BF Slightly Hazy (Clear)
--- NOTE | 2024-05-29 10:57 | P.PCN ---
Date of Procedure: 05/20/24 Operative Findings: Preoperative Diagnosis: pleural effusion, right Postoperative Diagnosis: same Procedure(s) Performed: thoracentesis, right Anesthesia: local Surgeon: Eric Tobias Estimated Blood Loss (ml): 0 Pathology: other Condition: stable Disposition: same day Operative Findings: A time out was performed and the chest x-ray was reviewed, the appropriate side was confirmed and marked. My hands were washed immediately prior to the p rocedure. I wore a surgical cap, mask with protective eyewear, sterile gown and sterile gloves throughout the procedure. The patient was prepped and draped in a sterile manner using chlorhexidine scrub after the appropriate level was percussed and confirmed by ultrasound. 1% lidocaine was used to anesthesize the skin, subcutaneous tissue, superior aspect of the rib periosteum and parietal pleura. A finder needle was then introduced over the superior aspect of the rib to locate the pleural fluid; 2colored fluid was aspirated at a depth of approximately 2 cm. A 10-blade scalpel was used to randall the skin at the insertion site. The Cezy-e-Ewxvijwz needle was then introduced through the skin incision into the pleural space using negative aspiration pressure and the red colometric indicator to confirm appropriate positioning of the needle. The thoracentesis catheter was then threaded without difficulty.1900 ml of turbid colored fluid was removed without difficulty. The catheter was then removed. No immediate complications were noted during the procedure. A post-procedure chest x-ray is pending at the time of this note. The fluid will be sent for studies. Estimated blood loss is 0cc
== END ==
LOC: PROCWHC3 08:37
PROVIDERS: ATTEND Internal Medicine Critical Care Medicine
DX: J90 Pleural effusion, not elsewhere classified (principal)
CPT/HCPCS: 32554; 82945; 83615; 84157; 87070; 87075; 87116; 87205; 87206; 88108; 88305; 88341; 88342; 89050

== ENCOUNTER 2024-05-21 11:07 | Day surgery (SDC) | payer MEDICARE, OTHER ==
--- NOTE | 2024-05-20 09:27 | P.PCN ---
Date of Procedure: 05/20/24 Operative Findings: Preoperative Diagnosis: pleural effusion, right Postoperative Diagnosis: same Procedure(s) Performed: thoracentesis, right Anesthesia: local Surgeon: Eric Tobias Estimated Blood Loss (ml): 0 Pathology: other Condition: stable Disposition: same day Operative Findings: A time out was performed and the chest x-ray was reviewed, the appropriate side was confirmed and marked. My hands were washed immediately prior to the p rocedure. I wore a surgical cap, mask with protective eyewear, sterile gown and sterile gloves throughout the procedure. The patient was prepped and draped in a sterile manner using chlorhexidine scrub after the appropriate level was percussed and confirmed by ultrasound. 1% lidocaine was used to anesthesize the skin, subcutaneous tissue, superior aspect of the rib periosteum and parietal pleura. A finder needle was then introduced over the superior aspect of the rib to locate the pleural fluid; 2colored fluid was aspirated at a depth of approximately 2 cm. A 10-blade scalpel was used to randall the skin at the insertion site. The Zokf-z-Uealddlm needle was then introduced through the skin incision into the pleural space using negative aspiration pressure and the red colometric indicator to confirm appropriate positioning of the needle. The thoracentesis catheter was then threaded without difficulty.1900 ml of turbid colored fluid was removed without difficulty. The catheter was then removed. No immediate complications were noted during the procedure. A post-procedure chest x-ray is pending at the time of this note. The fluid will be sent for studies. Estimated blood loss is 0cc
--- NOTE | 2024-05-20 10:43 | XR ---
EXAMINATION TYPE: XR chest 1V DATE OF EXAM: 05/20/2024 10:04 AM COMPARISON: Chest radiographs from 02/11/2023. CLINICAL INDICATION: Male, 73 years old with history of post thoracentesis; TECHNIQUE: XR chest 1V Frontal view of the chest. FINDINGS: Lungs/Pleura: Blunting of the right costophrenic angle. There is no evidence of pleural effusion, foc al consolidation, or pneumothorax. Pulmonary vascularity: Unremarkable. Heart/mediastinum: Cardiomediastinal silhouette is unremarkable. Musculoskeletal: No acute osseous pathology. Midline sternotomy wires are noted. IMPRESSION: Right pleural effusion without evidence for pneumothorax. [facility], , 05/20/2024 10:41 AM
[~2024-05-21 11:07] MED LIST changes: +LACTATED RINGERS 1,000 ML IV SCH; -SODIUM CHLORIDE 0.9% 250 ML in EMPTY BAG 1 BAG IV PRN; -SODIUM CHLORIDE 0.9% 500 ML 500 ML in EMPTY BAG 1 BAG IV PRN
[2024-05-21] MEDS ORDERED: LIDOCAINE 1% (10MG/ML) FOR IV START INTRADERMA PRN (11:25)
[2024-05-21] MEDS ORDERED: ONDANSETRON 4 MG/2 ML VIAL IVP ONE (11:25)
[2024-05-21] MEDS ORDERED: DEXAMETHASONE SOD PHOSPHATE 4 MG/ML 1 ML VIAL IV ONE (11:25)
[2024-05-21] MEDS ORDERED: HYDROmorphone 0.5 MG/0.5 ML SYRINGE IVP PRN (11:25)
[2024-05-21] MEDS ORDERED: MIDAZOLAM 2 MG/2 ML VIAL IV PRN (11:25)
[2024-05-21] MEDS ORDERED: LACTATED RINGERS 1,000 ML IV SCH (11:25)
[2024-05-21] MEDS: IV FLUID CONTINUATION 1,000 ML IV ONE (11:42)
[2024-05-21] MEDS ORDERED: PROPOFOL 10 MG/ML 20 ML VIAL IV ONE (12:22)
[2024-05-21] MEDS ORDERED: LIDOCAINE 1% INJ 10MG/ML (20 ML MDV) ONE (12:22)
[2024-05-21] MEDS ORDERED: fentaNYL (PF) 50 MCG/ML 2 ML AMP ONE (12:22)
[2024-05-21] MEDS ORDERED: SUCCINYLCHOLINE CHLORIDE 200 MG/10 ML VIAL IV ONE (12:22)
[2024-05-21 13:21] VITALS: TEMP 97
[2024-05-21 13:46] VITALS: RESP 16
[2024-05-21 14:30] VITALS: BP 115/67; PULSE 69
--- NOTE | 2024-05-21 16:06 | P.PCN ---
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 Endobronchial brushing of the right upper lobe. Bronchial lavage of the right upper lobe Endobronchial ultrasound Transbronchial needle aspirate of right hilar lymph node/mass Anesthesia: MAC Surgeon: Eric Tobias Estimated Blood Loss (ml): 0 Pathology: other Condition: stable Disposition: same day Operative Findings: This procedure was done in the endoscopy suite. A preoperative consent was obtained. A timeout was done. Following that, the patient was intubated and placed on mechanical ventilator. The patient was intubated by a #8 orotracheal tube. Following that, the flexor bronchoscope was introduced through the orotracheal tube and was advanced into the distal trachea and an airway inspection was done. Distal trachea and bilateral mainstem bronchi were patent. The right upper lobe bronchus was plugged with mucus. The secretions were suctioned out easily. There was considerable amount of narrowing and endobronchial irregularities and abnormalities consistent with tumor obstructing the right upper lobe bronchus and causing anatomic distortion of the various segments of the right upper lobe. The mucosa was friable and vascular. The bronchus intermedius was narrowed and there is some mass effect along the posterior wall of the bronchus intermedius and the distal right mainstem bronchus. The right middle lobe bronchus was patent. Right lower lobe bronchus was patent. Nevertheless, the various segments of the right lower lobe were quite atelectatic as the patient is known to have a large right-sided pleural effusion that was recently drained. Examination of the left side including the left mainstem bronchus, left upper lobe bronchus and the left lobe bronchus and the various 8 segments on the left and examination of left side was essentially within normal limits. Following that, the bronchoscope was moved to the right upper lobe and endobronchial biopsies of the right upper lobe endobronchial tumor/mucosal irregularities was done under direct visualization. Total of 6-7 biopsies were obtained. Following that, endobronchial brushing of the right upper lobe was done. Subsequently, bronchoalveolar lavage of the right upper lobe was done with a total of 60 cc of saline was infused and 20 cc of bloody aspirate was obtained. The flexible bronchoscope was removed and the endobronchial ultrasound was inserted. Careful inspection of the mediastinal lymph node stations was done. The right infrahilar mass/lymph node was identified using the endobronchial ultrasound. This was essentially present serial to the distal right mainstem bronchus and bronchus intermedius. This was a large mass collection that was estimated to be around 3.5 cm in size. Using a 22-gauge this shot needle, transbronchial needle aspirate of the right infrahilar mass/lymph node was done and a total of 5 passes was taken. No endobronchial bleed. The endobronchial ultrasound was removed. The flexible bronchoscope was reinserted and therapeutic airway suctioning was done. The flexible bronchoscope was removed and the patient was extubated and transferred to recovery in stable condition. No complications. The patient will follow-up with me in the office to discuss the results of those biopsies.
== END 2024-05-21 14:45 | disposition home or self-care (01) ==
LOC: ORWHC2ENDO 11:07
PROVIDERS: ATTEND Internal Medicine Critical Care Medicine
DX: C34.11 Malignant neoplasm of upper lobe, right bronchus or lung (principal); C34.01 Malignant neoplasm of right main bronchus; R59.0 Localized enlarged lymph nodes; J90 Pleural effusion, not elsewhere classified; J44.9 Chronic obstructive pulmonary disease, unspecified; K21.9 Gastro-esophageal reflux disease without esophagitis; I25.10 Atherosclerotic heart disease of native coronary artery without angina pectoris; I11.0 Hypertensive heart disease with heart failure; I50.9 Heart failure, unspecified; E78.5 Hyperlipidemia, unspecified; N52.9 Male erectile dysfunction, unspecified; I73.9 Peripheral vascular disease, unspecified; Z79.01 Long term (current) use of anticoagulants; Z79.899 Other long term (current) drug therapy; Z79.02 Long term (current) use of antithrombotics/antiplatelets; Z95.1 Presence of aortocoronary bypass graft; Z98.890 Other specified postprocedural states; Z98.52 Vasectomy status; Z86.718 Personal history of other venous thrombosis and embolism; Z86.711 Personal history of pulmonary embolism; Z85.118 Personal history of other malignant neoplasm of bronchus and lung; Z88.8 Allergy status to other drugs, medicaments and biological substances
CPT/HCPCS: 88108; 88305; 88342; 88341; 71045; 31629; 31625; 31624; 31652; J0330; J2003; J3010; J2704

== ENCOUNTER 2024-06-18 10:56 | Day surgery (SDC) | payer MEDICARE, OTHER ==
[2024-06-18] MEDS ORDERED: HYDROmorphone 0.5 MG/0.5 ML SYRINGE IVP PRN (11:50)
[2024-06-18] MEDS ORDERED: LIDOCAINE 1% (10MG/ML) FOR IV START INTRADERMA PRN (11:50)
[2024-06-18] MEDS ORDERED: droPERidol 5 MG/2 ML VIAL IVP ONE (11:50)
[2024-06-18] MEDS: IV FLUID CONTINUATION 1,000 ML IV ONE (11:56)
[2024-06-18] MEDS: LACTATED RINGERS 1,000 ML IV SCH (12:28)
[2024-06-18] MEDS: ONDANSETRON 4 MG/2 ML VIAL IVP ONE (12:37)
[2024-06-18] MEDS: DEXAMETHASONE SOD PHOSPHATE 4 MG/ML 1 ML VIAL IV ONE (12:39)
[2024-06-18] MEDS ORDERED: MIDAZOLAM 2 MG/2 ML VIAL ONE (14:22)
[2024-06-18] MEDS ORDERED: PROPOFOL 10 MG/ML 20 ML VIAL IV ONE (14:22)
[2024-06-18] MEDS ORDERED: KETAMINE HCL IN 0.9 % NACL 50 MG/5 ML SYRINGE ONE (14:22)
[2024-06-18] MEDS: HEPARIN SODIUM,PORCINE 100 UNIT/ML 5 ML VIAL IV ONE (14:43)
[2024-06-18] MEDS: LIDOCAINE 1% INJ 10MG/ML (20 ML MDV) SQ ONE (14:43)
[2024-06-18] MEDS: SODIUM CHLORIDE 0.9% 500 ML 500 ML with HEPARIN SODIUM,PORCINE (1 ML) 5,000 UNIT IV ONE (14:45)
--- NOTE | 2024-06-18 15:28 | FL ---
EXAMINATION TYPE: FL guided central line placemt DATE OF EXAM: 06/18/2024 3:24 PM COMPARISON: Pre Operative Images if available both CT/MRI or plain film CLINICAL INDICATION: Male, 73 years old with history of PLEURX CATH PLACEMENT; TECHNIQUE: FL guided central line placemt, multiple fluoroscopic images provided for procedure. Total fluoroscopy time: 9 seconds Total submitted images to PACS: 1 DAP: [id number] mGym2 Gycm2 uGym2 cGycm2 or equivalent. FINDINGS: ION bronchoscopy. No immediate complications identified, no pneumothorax identified. IMPRESSION: 1. No evidence for intraoperative complication. 2. Please see the operative/procedural note for further details. [facility], , 06/18/2024 3:26 PM
--- NOTE | 2024-06-18 15:33 | P.OP ---
Date of Procedure: 06/18/24 Preoperative Diagnosis: Recurrent right malignant effusion, recurrent lung cancer Postoperative Diagnosis: Same Procedure(s) Performed: Right Pleurx catheter placement, right Mediport placement both with fluoroscopic guidance Implants: PleurX catheter, Mediport Anesthesia: MAC Surgeon: Pavel Russ Estimated Blood Loss (ml): 2 Pathology: none sent Condition: stable Disposition: PACU Indications for Procedure: 73-year-old male with longstanding history of advanced lung cancer. Recently has developed recurrent left pleural effusion after a several year period of disease-free interval. He is scheduled to resume chemotherapy on Saturday. 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 Patient was seen in the office and informed consent was obtained. Operative Findings: We drained 2500 cc of serous fluid from the right chest. Tip of the Mediport was in the proximal right atrium. Description of Procedure: Patient was brought to the operating room and placed supine on the table. The head was elevated 30 degrees for patient comfort. Patient was appropriately positioned. The right chest and right shoulder region were sterilely prepped and draped. 1% lidocaine anesthesia was used. Right chest cavity was punctured in the anterior axillary line in the eighth interspace and fluid identified. Guidewire was threaded into the chest at this site. This was confirmed in the pleural space under fluoroscopy. Puncture site was enlarged to just over a centimeter. Just under a centimeter counterincision was made in the right upper quadrant. PleurX catheter was tunneled from the abdominal site to the chest site with the cuff left just under the skin at the exit site of the abdomen. Introducer and dilator were placed over the guidewire and through the introducer sheath the Pleurx catheter was introduced into the right pleural space. Breakaway sheath was removed. Catheter was noted to be in good position by fluoroscopy. It was connected to suction and 2-1/2 L of fluid was drained. Following this it was capped. It was secured at the exit site with a 2-0 silk suture ligature. The entry site was closed with a 4-0 Vicryl suture and skin glue. Standard Pleurx dressing was applied at the exit site. Incision was now made over the deltopectoral groove in the right shoulder region after appropriate lidocaine anesthesia. It was carried down to the pectoralis fashion. Pocket was created medially over the pectoralis fascia. Dissection was carried laterally to the deltopectoral groove which was incised and the cephalic vein was dissected out. It was ligated distally with 2-0 silk and controlled proximally with the same. Venotomy was performed and the guidewire was threaded into the right atrium under fluoroscopic guidance. Introducer and dilator were placed over the wire and through the introducer sheath the Mediport catheter was advanced into the right atrium. The sheath was removed. Catheter was pulled back till the tip of the catheter was just in the right atrium beyond the cavoatrial junction. 2-0 silk was tied around the cephalic vein proximally to secure the catheter and prevent backbleeding. Catheter was cut to appropriate length and connected to the Mediport hub. This was cannulated with a Capellan needle good backbleeding was noted with withdrawal of the syringe and ea sy antegrade flow with pushing on the syringe with half saline. Capellan needle was removed and the port was placed in the pocket. Was secured to the pectoralis fashion with 2-0 silk suture ligature. Pocket was irrigated and closed with 2 layers of 3-0 Vicryl. Port was recannulated and flushed with 4 cc of full-strength heparin. Skin glue and Tegaderm dressing were applied. Fluoroscopy at the completion of the procedure demonstrated excellent positioning of the Mediport catheter, no evidence of any kinking of the catheter good position of the Pleurx catheter as well with good clearance of the pleural effusion. Plan - Discharge Summary Discharge Rx Participant: No New Discharge Prescriptions: Continue Ferrous Sulfate [Iron (65 MG Elemental)] 65 mg PO DAILY Atorvastatin [Lipitor] 20 mg PO HS Apixaban [Eliquis] 5 mg PO BID Metoprolol Tartrate [Lopressor] 100 mg PO BID Pantoprazole Sodium 40 mg PO DAILY Fluticasone/Umeclidin/Vilanter [Trelegy Ellipta 100-62.5-25] 1 inhalation INHALATION DAILY Multivitamin [Multivitamins Adult Gummies] 1 each PO DAILY Gabapentin [Neurontin] 100 mg PO BID Furosemide [Lasix] 40 mg PO Q48H Clopidogrel [Plavix] 75 mg PO DAILY Losartan [Cozaar] 25 mg PO DAILY Vitamin B Complex 1 each PO DAILY Discharge Medication List Apixaban [Eliquis] 5 mg PO BID 02/11/23 [History] Atorvastatin [Lipitor] 20 mg PO HS 02/11/23 [History] Clopidogrel [Plavix] 75 mg PO DAILY 02/11/23 [History] Ferrous Sulfate [Iron (65 MG Elemental)] 65 mg PO DAILY 02/11/23 [History] Fluticasone/Umeclidin/Vilanter [Trelegy Ellipta 100-62.5-25] 1 inhalation INHALATION DAILY 02/11/23 [History] Furosemide [Lasix] 40 mg PO Q48H 02/11/23 [History] Gabapentin [Neurontin] 100 mg PO BID 02/11/23 [History] Losartan [Cozaar] 25 mg PO DAILY 02/11/23 [History] Metoprolol Tartrate [Lopressor] 100 mg PO BID 02/11/23 [History] Multivitamin [Multivitamins Adult Gummies] 1 each PO DAILY 02/11/23 [History] Pantoprazole Sodium 40 mg PO DAILY 02/11/23 [History] Vitamin B Complex 1 each PO DAILY 02/11/23 [History] Follow up Appointment(s)/Referral(s): Sharad Cantu MD [Primary Care Provider] - As Needed Pavel Russ MD [STAFF PHYSICIAN] - As Needed (Please call office for Pleurx catheter removal once drainage has been less than 50 mL for 3 times in a row) [facility], [NON-STAFF] - 1-2 Days (To follow for Pleurx catheter drainage, teaching, bottles) Eric Tobias MD [STAFF PHYSICIAN] - As Needed Activity/Diet/Wound Care/Special Instructions: PLEURX DISCHARGE INSTRUCTIONS: 1. Home Care is ordered, they will obtain new bottles. 2. May shower after 24 hours, no tub baths/hot tubs. 3. Do not drain more than 1 liter or 1000 mL in 24 hours. 4. New drainage bottle needed with each drainage. 5. Drainage frequency dictated by patient symptoms, may be every day, every other day, weekly, or however often the patient is symptomatic. 6. Please notify POWDER LOADER or office if temperature >101F, excessive pain at insertion site, drainage consistency changes to cloudy or smells bad, catheter falls out, or anything else that concerns you. 7. Contact surgery office with weekly drainage amounts. May fax the amounts. 8. Once drainage is less than 50 mL three times in a row, notify the surgery office for possible removal. Surgery office: , fax Discharge Disposition: HOME WITH HOME HEALTH SERVICES
--- NOTE | 2024-06-18 15:38 | FL ---
EXAMINATION TYPE: FL guidance operating room DATE OF EXAM: 06/18/2024 3:26 PM COMPARISON: Pre Operative Images if available both CT/MRI or plain film CLINICAL INDICATION: Male, 73 years old with history of PORT-A-CATH INSERTION; TECHNIQUE: FL guidance operating room, multiple fluoroscopic images provided for procedure. Total fluoroscopy time: 47 seconds Total submitted images to PACS: 0 DAP: 0.55520 mGym2 Gycm2 uGym2 cGycm2 or equivalent. FINDINGS: IMPRESSION: 1. Report was generated for administrative purposes only. 2. Please see the operative/procedural note for further details. [facility], , 06/18/2024 3:35 PM
[2024-06-18 15:40] VITALS: TEMP 98
--- NOTE | 2024-06-18 16:46 | XR ---
EXAMINATION TYPE: XR chest 1V portable DATE OF EXAM: 06/18/2024 3:41 PM COMPARISON: 05/20/2024 CLINICAL INDICATION: Male, 73 years old with history of post surgical clips are within the pelvis., m ediport, TECHNIQUE: XR chest 1V portable view(s) obtained. FINDINGS: The heart size is normal. The pulmonary vasculature is normal. Right pleural effusion is present, increasing from comparison. Right-sided port is present with the tip in the proximal right atrium IMPRESSION: 1. Increasing right sided pleural effusion [facility], , 06/18/2024 4:43 PM
[2024-06-18 17:43] VITALS: BP 118/71; PULSE 72; RESP 17
== END 2024-06-18 17:25 | disposition home health service (06) ==
LOC: OR 10:56
PROVIDERS: ATTEND Thoracic Surgery (Cardiothoracic Vascular Surgery)
DX: C34.90 Malignant neoplasm of unspecified part of unspecified bronchus or lung (principal); J91.0 Malignant pleural effusion; I10 Essential (primary) hypertension; E78.5 Hyperlipidemia, unspecified; I25.10 Atherosclerotic heart disease of native coronary artery without angina pectoris; I48.91 Unspecified atrial fibrillation; J44.9 Chronic obstructive pulmonary disease, unspecified; M54.50 Low back pain, unspecified; K56.609 Unspecified intestinal obstruction, unspecified as to partial versus complete obstruction; Z45.2 Encounter for adjustment and management of vascular access device; Z89.232 Acquired absence of left shoulder; Z79.02 Long term (current) use of antithrombotics/antiplatelets; Z79.01 Long term (current) use of anticoagulants; Z79.899 Other long term (current) drug therapy
CPT/HCPCS: 85730; 77001; 71045; 36561; C1788; J2250; J1644; J1642; J1100; J0690; J2405; J2003; J2704

== ENCOUNTER → 2024-08-19 | Outpatient (CLI) | payer MEDICARE, OTHER ==
--- NOTE | 2024-08-19 12:50 | CT ---
EXAMINATION TYPE: CT brain w con DATE OF EXAM: 08/19/2024 COMPARISON: CLINICAL INDICATION: Male, 74 years old with history of C34.11 MALIGNANT NEOPLASM OF UPPER LOBE, RIGH T BRO; PHH, Stage 4 lung CA, R/O mets. TECHNIQUE: CT of the brain is performed with IV Contrast, patient injected with 100 ml mL of Isovue 300. CT DLP: 1090.4 mGycm Automated exposure control for dose reduction was used. FINDINGS: There is no abnormal enhancing mass or midline shift identified. The ventricles and sulci are within normal limits in size. The globes are intact and the visualized sinuses are clear. IMPRESSION: No enhancing intracranial lesions seen. [facility], , 08/19/2024 12:48 PM
== END | disposition home or self-care (01) ==
LOC: RADCTMAIN 11:51
PROVIDERS: ATTEND Internal Medicine Hematology & Oncology
DX: Z03.89 Encounter for observation for other suspected diseases and conditions ruled out (principal); C34.11 Malignant neoplasm of upper lobe, right bronchus or lung
CPT/HCPCS: 70460; Q9967

== ENCOUNTER 2024-08-21 23:12 | Inpatient (IN) | payer MEDICARE, OTHER ==
--- NOTE | 2024-08-21 23:39 | ED ---
SOB HPI - General Chief Complaint: Shortness of Breath Stated Complaint: Difficulty Breathing Time Seen by Provider: 08/21/24 23:17 Source: patient, EMS Mode of arrival: EMS - History of Present Illness Initial Comments: This patient is 74-year-old man with history of lung cancer, currently receiving chemotherapy, presenting with worsening dyspnea. Patient has not noted fever or chills. Nonproductive cough. Does note bilateral leg edema. Patient also has right-sided Pleurx catheter for pleural effusion. Family reports that they had been able to drain 200mL over past day, down from about 1L daily. MD Complaint: shortness of breath, cough -: days(s) Severity: moderate Consistency: constant Improves With: upright position Worsens With: lying flat Known History Of: other (Lung cancer) Associated Symptoms: cough Treatments Prior to Arrival: bronchodilator, other - Related Data Home Oxygen Therapy: No Home Medications Medication Instructions Recorded Confirmed Apixaban [Eliquis] 5 mg PO BID 02/11/23 08/18/24 Atorvastatin [Lipitor] 20 mg PO HS 02/11/23 08/18/24 Clopidogrel [Plavix] 75 mg PO DAILY 02/11/23 08/18/24 Ferrous Sulfate [Iron (65 MG 65 mg PO DAILY 02/11/23 08/18/24 Elemental)] Fluticasone/Umeclidin/Vilanter 1 inhalation INHALATION DAILY 02/11/23 08/18/24 [Trelegy Ellipta 100-62.5-25] Furosemide [Lasix] 40 mg PO Q48H 02/11/23 08/18/24 Gabapentin [Neurontin] 100 mg PO BID 02/11/23 08/18/24 Losartan [Cozaar] 25 mg PO DAILY 02/11/23 08/18/24 Metoprolol Tartrate [Lopressor] 100 mg PO BID 02/11/23 08/18/24 Multivitamin [Multivitamins Adult 1 each PO DAILY 02/11/23 08/18/24 Gummies] Pantoprazole Sodium 40 mg PO DAILY 02/11/23 08/18/24 Vitamin B Complex 1 each PO DAILY 02/11/23 08/18/24 Allergies Allergy/AdvReac Type Severity Reaction Status Date / Time No Known Allergies Allergy Verified 08/21/24 23:24 Review of Systems ROS Statement: Those systems with pertinent positive or pertinent negative responses have been documented in the HPI. ROS Other: All systems not noted in ROS Statement are negative. Constitutional: Reports: weakness. Denies: fever, chills Respiratory: Reports: cough, dyspnea. Denies: hemoptysis Cardiovascular: Reports: palpitations, dyspnea on exertion, orthopnea. Denies: syncope Gastrointestinal: Denies: abdominal pain, vomiting, diarrhea Genitourinary: Denies: dysuria, hematuria Musculoskeletal: Denies: back pain Skin: Denies: rash Neurological: Denies: headache, weakness Past Medical History Past Medical History: Coronary Artery Disease (CAD), Cancer, Chest Pain / Angina, COPD, GERD/Reflux, Hyperlipidemia, Hypertension, Vascular Disorder Additional Past Medical History / Comment(s): Spondylolithiasis L5-S1, back pain, generalized swelling, lung cancer 2020 History of Any Multi-Drug Resistant Organisms: None Reported Past Surgical History: Back Surgery, Coronary Bypass/CABG, Heart Catheterization, Heart Catheterization With Stent, Orthopedic Surgery Additional Past Surgical History / Comment(s): 1969 L knee injury with surgery, 1987 vasectomy, 1989 cervical surgery with bone donated from hip, PCI with stents, L shoulder surgery d/t injury, bilateral carpal tunnel releases, 2011 AAA repair, post AAA incision infection/muscle flap, 2013 stent R leg behind knee, 2 lumbar spine surgeries, 2017 CABG-3 vessel Past Anesthesia/Blood Transfusion Reactions: No Reported Reaction Additional Past Anesthesia/Blood Transfusion Reaction / Comment(s): Pt has clausterphobia. Date of Last Stent Placement:: 12/09/19 Cait Cool Past Psychological History: No Psychological Hx Reported Smoking Status: Former smoker Past Alcohol Use History: None Reported Past Drug Use History: None Reported - Past Family History Father Family Medical History: Cancer Additional Family Medical History / Comment(s): Father of small cell lung cancer. Mother Family Medical History: Cancer Additional Family Medical History / Comment(s): Mother had leukemia. General Exam General appearance: alert, in distress Head exam: Present: atraumatic, normocephalic Eye exam: Present: normal appearance. Absent: scleral icterus, conjunctival injection ENT exam: Absent: normal oropharynx Neck exam: Present: normal inspection Respiratory exam: Present: respiratory distress, rales, rhonchi, accessory mu scle use. Absent: stridor, decreased breath sounds, prolonged expiratory Cardiovascular Exam: Present: tachycardia, systolic murmur. Absent: diastolic murmur, rubs, gallop GI/Abdominal exam: Present: soft. Absent: distended, tenderness, guarding, rebound, rigid, mass Extremities exam: Present: normal capillary refill, pedal edema. Absent: calf tenderness Back exam: Present: normal inspection Neurological exam: Present: alert Skin exam: Present: warm, dry, intact, normal color. 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 ] Respiratory 22 Rate Blood Pressure 132/79 O2 Sat by Pulse 100 Oximetry Fraction of 40 Inspired Oxygen (FIO2) 08/22/24 08/22/24 01:57 02:00 Temperature Pulse Rate 147 H 158 H Pulse Rate [ 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 ] Respiratory 20 20 Rate Blood Pressure 111/73 127/66 O2 Sat by Pulse 100 100 Oximetry Fraction of Inspired Oxygen (FIO2) Medical Decision Making - Lab Data Result diagrams: 08/21/24 23:18 08/21/24 23:18 Lab Results 08/21/24 08/21/24 08/21/24 Range/Units 23:18 23:18 23:18 WBC 6.0 (3.8-10.6) k/uL RBC 2.71 L (4.30-5.90) m/uL Hgb 9.1 L (13.0-17.5) gm/dL Hct 26.8 L (39.0-53.0) % MCV 99.2 (80.0-100.0) fL MCH 33.6 (25.0-35.0) pg MCHC 33.9 (31.0-37.0) g/dL RDW 18.2 H (11.5-15.5) % Plt Count 202 (150-450) k/uL MPV 8.7 Neutrophils % (Manual) 62 % Lymphocytes % (Manual) 22 % Monocytes % (Manual) 16 % Neutrophils # (Manual) 3.72 (1.3-7.7) k/uL Lymphocytes # (Manual) 1.32 (1.0-4.8) k/uL Monocytes # (Manual) 0.96 (0-1.0) k/uL Nucleated RBCs 0 (0-0) /100 WBC Manual Slide Review Performed Hypochromasia Slight Poikilocytosis Slight Anisocytosis Slight Macrocytosis Slight PT 16.3 H (10.0-12.5) sec INR 1.6 H (<1.2) APTT 24.9 (22.0-30.0) sec D-Dimer 3.59 H (<0.60) mg/L FEU Sodium 133 L (137-145) mmol/L Potassium 4.4 (3.5-5.1) mmol/L Chloride 98 (98-107) mmol/L Carbon Dioxide 26 (22-30) mmol/L Anion Gap 9 mmol/L BUN 25 H (9-20) mg/dL Creatinine 1.19 (0.66-1.25) mg/dL Est GFR (CKD-EPI)AfAm 68 (>60 ml/min/1.73 sqM) Est GFR (CKD-EPI)NonAf 59 (>60 ml/min/1.73 sqM) Glucose 167 H (74-99) mg/dL Plasma Lactic Acid Osmani (0.7-2.0) mmol/L Calcium 8.4 (8.4-10.2) mg/dL Magnesium 2.0 (1.6-2.3) mg/dL Total Bilirubin 0.9 (0.2-1.3) mg/dL AST 36 (17-59) U/L ALT 23 (4-49) U/L Alkaline Phosphatase 117 (38-126) U/L Troponin I (0.000-0.034) ng/mL NT-Pro-B Natriuret Pep 6540 pg/mL Total Protein 6.1 L (6.3-8.2) g/dL Albumin 3.0 L (3.5-5.0) g/dL Blood Type Blood Type Recheck Bld Type Recheck Status Antibody Screen Spec Expiration Date 08/21/24 08/22/24 08/22/24 Range/Units 23:18 00:10 00:20 WBC (3.8-10.6) k/uL RBC (4.30-5.90) m/uL Hgb (13.0-17.5) gm/dL Hct (39.0-53.0) % MCV (80.0-100.0) fL MCH (25.0-35.0) pg MCHC (31.0-37.0) g/dL RDW (11.5-15.5) % Plt Count (150-450) k/uL MPV Neutrophils % (Manual) % Lymphocytes % (Manual) % Monocytes % (Manual) % Neutrophils # (Manual) (1.3-7.7) k/uL Lymphocytes # (Manual) (1.0-4.8) k/uL Monocytes # (Manual) (0-1.0) k/uL Nucleated RBCs (0-0) /100 WBC Manual Slide Review Hypochromasia Poikilocytosis Anisocytosis Macrocytosis PT (10.0-12.5) sec INR (<1.2) APTT (22.0-30.0) sec D-Dimer (<0.60) mg/L FEU Sodium (137-145) mmol/L Potassium (3.5-5.1) mmol/L Chloride (98-107) mmol/L Carbon Dioxide (22-30) mmol/L Anion Gap mmol/L BUN (9-20) mg/dL Creatinine (0.66-1.25) mg/dL Est GFR (CKD-EPI)AfAm (>60 ml/min/1.73 sqM) Est GFR (CKD-EPI)NonAf (>60 ml/min/1.73 sqM) Glucose (74-99) mg/dL Plasma Lactic Acid Osmani 2.0 (0.7-2.0) mmol/L Calcium (8.4-10.2) mg/dL Magnesium (1.6-2.3) mg/dL Total Bilirubin (0.2-1.3) mg/dL AST (17-59) U/L ALT (4-49) U/L Alkaline Phosphatase (38-126) U/L Troponin I 0.551 H* (0.000-0.034) ng/mL NT-Pro-B Natriuret Pep pg/mL Total Protein (6.3-8.2) g/dL Albumin (3.5-5.0) g/dL Blood Type A Negative Blood Type Recheck A Neg Bld Type Recheck Status No Antibody Screen NEGATIVE Spec Expiration Date 08/25/20242319 - EKG Data -: EKG Interpreted by Me EKG shows normal: axis (Right axis deviation), QRS complexes (Interventricular conduction delay) Interpretation: nonspecific ST-T wave changes, other (Underlying rhythm appears to be atrial flutter with rapid rate approximately 153 bpm) Disposition Referrals: None,Stated [Primary Care Provider] - 1-2 days
[2024-08-21] MEDS: DILTIAZEM 125 MG in SODIUM CHLORIDE 0.9% 100 ML IV SCH (23:47)
[2024-08-21] MEDS: DILTIAZEM DRIP BOLUS FROM BAG 1 MG SOLN IV ONE (23:52)
[2024-08-21 23:53] LABS: Anisocytosis Slight; HCT 26.8 % (39.0-53.0); HGB 9.1 gm/dL (13.0-17.5); Hypochromasia Slight; MCH 33.6 pg (25.0-35.0); MCHC 33.9 g/dL (31.0-37.0); MCV 99.2 fL (80.0-100.0); Macrocytosis Slight; Mean Platelet Volume 8.7; Platelet Count 202 k/uL (150-450); Poikilocytosis Slight; RBC 2.71 m/uL (4.30-5.90); RDW 18.2 % (11.5-15.5)
[2024-08-22] LABS: ALT 23 U/L (4-49); AST 36 U/L (17-59); African American GFR (CKD) 68 (>60 ml/min/1.73 sqM); Alkaline Phosphatase 117 U/L (38-126); Anion Gap 9 mmol/L; Blood Urea Nitrogen 25 mg/dL (9-20); Calcium 8.4 mg/dL (8.4-10.2); Carbon Dioxide 26 mmol/L (22-30); Chloride 98 mmol/L (98-107); Glucose 167 mg/dL (74-99); Non-African American GFR(CKD) 59 (>60 ml/min/1.73 sqM); Potassium 4.4 mmol/L (3.5-5.1); Sodium 133 mmol/L (137-145); Total Bilirubin 0.9 mg/dL (0.2-1.3); Total Protein 6.1 g/dL (6.3-8.2)
[2024-08-22 00:08] LABS: NT-Pro-B-Type Natriuretic Pept 6540 pg/mL
[2024-08-22 00:21] LABS: INR 1.6 (<1.2); Partial Thromboplastin Time 24.9 sec (22.0-30.0); Prothrombin Time 16.3 sec (10.0-12.5)
[2024-08-22] MEDS: DILTIAZEM DRIP BOLUS FROM BAG 1 MG SOLN IV ONE ×2 (00:46→01:30)
[2024-08-22 01:40] LABS: Lymphocytes # (M) 1.32 k/uL (1.0-4.8); Monocytes # (M) 0.96 k/uL (0-1.0); Neutrophils # (M) 3.72 k/uL (1.3-7.7); Neutrophils % (M) 62 %; Nucleated Red Blood Cells 0 /100 WBC (0-0); Total Cells Counted 100
--- NOTE | 2024-08-22 01:48 | XR ---
EXAM: XR Chest, 1 View CLINICAL HISTORY: ITS.REASON XR Reason: dyspnea TECHNIQUE: Frontal view of the chest. COMPARISON: No relevant prior studies available. IMPRESSION: Severe pulmonary edema and pleural effusion
[2024-08-22] MEDS: MORPHINE SULFATE 4 MG/ML SYRINGE IV STA (01:53)
[2024-08-22] MEDS: ETOMIDATE 2 MG/ML 10 ML VIAL IVP STA (01:58)
[2024-08-22] MEDS: FUROSEMIDE 10 MG/ML 4 ML VIAL IV STA (02:15)
[2024-08-22] MEDS: DEXTROSE 5% IN WATER 100 ML with AMIODARONE 150 MG IV ONE (02:22)
[2024-08-22] MEDS: AMIODARONE 360 MG in DEXTROSE 5% IN WATER 200 ML IV ONE (03:10)
[2024-08-22] MEDS ORDERED: NALOXONE 0.4 MG/ML 1 ML VIAL IV PRN (04:13)
[2024-08-22] MEDS: NITROGLYCERIN OINT 1 INCH/GM PACKET TOPICAL STA (05:57)
[2024-08-22] MEDS: SODIUM CHLORIDE 0.9% 1,000 ML IV SCH (05:57)
--- NOTE | 2024-08-22 06:08 | CT ---
EXAMINATION TYPE: CT chest angio for PE DATE OF EXAM: 08/22/2024 COMPARISON: CT chest March 28, 2020. Most recent PET CT April 09, 2024 CLINICAL INDICATION: Male, 74 years old with history of dyspnea, possible PE, , TECHNIQUE: CTA scan of the thorax is performed with IV Contrast, patient injected with 100 mL of Isovue 300, pul monary embolism protocol. MIP Images are created on CT scanner and reviewed. CT DLP: 640 mGycm. Automated Exposure Control for Dose Reduction was Utilized. FINDINGS: LUNGS: There are small to moderate-sized bilateral pleural effusions fluid collection, right greater than left. Right-sided collection does not completely layer dependently. There is percutaneous right- sided pigtail drainage catheter terminating medial lung base There is more central right hilar massli ke consolidation corresponding to known central neoplasm and postobstructive compressive atelectasis. There is respiratory motion compromises making evaluation suboptimal. There is groundglass opacity t hroughout both lungs with increased interstitial markings inferiorly suggesting edema bilaterally. HEART: Size within normal limits. Moderate to severe three-vessel coronary artery calcifications and/ or stents are redemonstrated. Post-CABG changes are noted. MEDIASTINUM: There is satisfactory enhancement of the pulmonary artery and its branches, there is no CT evidence for pulmonary embolism. There are no greater than 1 cm hilar or mediastinal lymph nodes. No cardiomegaly or pericardial effusion is seen. OTHER: No additional significant abnormality is seen. IMPRESSION: 1. No CT evidence for acute pulmonary embolism. 2. Small to borderline moderate sized right greater than left bilateral pleural fluid collections. Ri ght-sided pleural drainage catheter is present. There is central right lung neoplasm with associated obstructive atelectasis. There is bilateral alveolar and interstitial edema suggesting fluid overload state. Correlate clinically. [facility], , 08/22/2024 6:06 AM
[2024-08-22 06:10] LABS: VBG PH 7.18 (7.31-7.41)
[2024-08-22 07:04] VITALS: TEMP 97.8
[2024-08-22 09:47] LABS: Anisocytosis Slight; Basophils % (A) 0 %; Eosinophils % (A) 0 %; HGB 9.6 gm/dL (13.0-17.5); Hypochromasia Moderate; Lymphocytes # (A) 0.5 k/uL (1.0-4.8); Lymphocytes % (A) 7 %; MCH 32.6 pg (25.0-35.0); MCHC 32.2 g/dL (31.0-37.0); MCV 101.3 fL (80.0-100.0); Macrocytosis Moderate; Mean Platelet Volume 8.8; Monocytes # (A) 0.6 k/uL (0-1.0); Monocytes % (A) 7 %; Neutrophils # (A) 6.7 k/uL (1.3-7.7); Neutrophils % (A) 83 %; Platelet Count 270 k/uL (150-450); Poikilocytosis Slight; RBC 2.96 m/uL (4.30-5.90); RDW 18.1 % (11.5-15.5); WBC 8.1 k/uL (3.8-10.6)
[2024-08-22] MEDS: HEPARIN SODIUM 1,000 UN/ML (10ML VL) IV ONE (09:56)
[2024-08-22 09:57] LABS: INR 1.8 (<1.2); Partial Thromboplastin Time 24.3 sec (22.0-30.0); Prothrombin Time 18.3 sec (10.0-12.5)
[2024-08-22] MEDS: HEPARIN SOD,PORK IN 0.45% NACL 25,000 UNIT in 0.45% NACL 1 250ML.BAG IV SCH (09:57)
[2024-08-22] MEDS: FUROSEMIDE 10 MG/ML 4 ML VIAL IV SCH (09:58)
--- NOTE | 2024-08-22 10:34 | P.HPIM ---
History of Present Illness This is a pleasant 74 years old male with past medical history of lung cancer on the right side status post chemoradiation and immunotherapy. He close chemotherapy every 3 weeks, he supposed to get last dose last Saturday but this pa st push for 1 week because he was feeling more tired and weak. He presents because of worsening shortness of breath more than a week. He is not on oxygen at home. He denies chest pain no significant coughing no significant fever chills. He developed little fever last week after he got 2 units of blood transfusion. He is known case of malignant right pleural effusion status post Pleurx catheter placed about 2 to 3 months ago. Also has a known case of coronary artery disease with 90% blockage as per family/ at bedside. At home he supposed to be on Plavix and Eliquis. On presentation he was somewhat hypotensive with blood pressure 91/55 and tachycardic with heart rate 125 up to 150. He is on oxygen now 15 L/min via nonrebreather. Hemoglobin 9.1 with baseline 8-12 and creatinine 1.1. D-dimer elevated 3.5 troponin elevated 0.55, proBNP is elevated 6540. CTA of the chest showing no pulmonary embolism but he has bilateral pleural effusion right more than left with central lung neoplasm and bilateral interstitial and alveolar edema suggesting fluid overload Chest x-ray showing severe pulmonary edema and pleural effusion mainly on the right side EKG showing atrial flutter at 153 with RVR and aberrant conduction versus PVCs Second EKG showing sinus tachycardia at 140 with possible atrial flutter Third EKG showing junctional tachycardia at 150 and possible atrial flutter. Review of Systems Review of systems CONSTITUTIONAL: No fever, no malaise, no fatigue. HEENT: No recent visual problems or hearing problems. Denied any sore throat. CARDIOVASCULAR: No orthopnea, PND, no palpitations, no syncope. PULMONARY:no cough, no hemoptysis. GASTROINTESTINAL: No diarrhea, no nausea, no vomiting, no abdominal pain. Normoactive bowel sounds. NEUROLOGICAL: No headaches, no weakness, no numbness. HEMATOLOGICAL: Denies any bleeding or petechiae. GENITOURINARY: Denies any burning micturition, frequency, or urgency. MUSCULOSKELETAL/RHEUMATOLOGICAL: Denies any joint pain, swelling, or any muscle pain. ENDOCRINE: Denies any polyuria or polydipsia. Past Medical History Past Medical History: Coronary Artery Disease (CAD), Cancer, Chest Pain / Angina, COPD, GERD/Reflux, Hyperlipidemia, Hypertension, Vascular Disorder Additional Past Medical History / Comment(s): Spondylolithiasis L5-S1, back pain, generalized swelling, lung cancer 2020 History of Any Multi-Drug Resistant Organisms: None Reported Past Surgical History: Back Surgery, Coronary Bypass/CABG, Heart Catheterization, Heart Catheterization With Stent, Orthopedic Surgery Additional Past Surgical History / Comment(s): 1969 L knee injury with surgery, 1987 vasectomy, 1989 cervical surgery with bone donated from hip, PCI with stents, L shoulder surgery d/t injury, bilateral carpal tunnel releases, 2011 AAA repair, post AAA incision infection/muscle flap, 2013 stent R leg behind knee, 2 lumbar spine surgeries, 2017 CABG-3 vessel Past Anesthesia/Blood Transfusion Reactions: No Reported Reaction Additional Past Anesthesia/Blood Transfusion Reaction / Comment(s): Pt has clausterphobia. Date of Last Stent Placement:: 12/09/19 Cait Cool Past Psychological History: No Psychological Hx Reported Smoking Status: Former smoker Past Alcohol Use History: None Reported Past Drug Use History: None Reported - Past Family History Father Family Medical History: Cancer Additional Family Medical History / Comment(s): Father of small cell lung cancer. Mother Family Medical History: Cancer Additional Family Medical History / Comment(s): Mother had leukemia. Medications and Allergies Home Medications Medication Instructions Recorded Confirmed Type Apixaban [Eliquis] 5 mg PO BID 02/11/23 08/22/24 History Atorvastatin [Lipitor] 20 mg PO HS 02/11/23 08/22/24 History Clopidogrel [Plavix] 75 mg PO DAILY 02/11/23 08/22/24 History Ferrous Sulfate [Iron (65 MG 325 mg PO DAILY 02/11/23 08/22/24 History Elemental)] Fluticasone/Umeclidin/Vilanter 1 puff INHALATION RT-DAILY 02/11/23 08/22/24 History [Trelegy Ellipta 100-62.5-25] Furosemide [Lasix] 40 mg PO Q48H 02/11/23 08/22/24 History Gabapentin [Neurontin] 100 mg PO BID 02/11/23 08/22/24 History Losartan [Cozaar] 25 mg PO DAILY 02/11/23 08/22/24 History Metoprolol Tartrate [Lopressor] 100 mg PO BID 02/11/23 08/22/24 History Pantoprazole Sodium 40 mg PO DAILY 02/11/23 08/22/24 History Vitamin B Complex 1 cap PO DAILY 02/11/23 08/22/24 History Albuterol Nebulized [Ventolin 2.5 mg INHALATION RT-TID 08/22/24 08/22/24 History Nebulized] Multivitamins, Thera [Multivitamin 1 tab PO DAILY 08/22/24 08/22/24 History (formulary)] Allergies Allergy/AdvReac Type Severity Reaction Status Date / Time No Known Allergies Allergy Verified 08/22/24 09:44 Physical Exam Vitals: Vital Signs Temp Pulse Pulse Resp BP Pulse Ox FiO2 08/22/24 07:02 97.8 F 123 H 18 99/60 99 08/22/24 05:58 125 H 16 91/55 98 08/22/24 04:37 133 H 20 92/55 94 L 08/22/24 04:00 131 H 28 H 101/67 93 L 08/22/24 03:30 140 H 25 H 108/61 94 L 08/22/24 03:00 141 H 14 120/57 95 08/22/24 02:36 134 H 21 104/72 91 L 08/22/24 02:30 134 H 20 125/77 98 08/22/24 02:15 149 H 24 123/78 95 08/22/24 02:00 158 H 20 127/66 100 08/22/24 01:57 147 H 20 111/73 100 08/22/24 01:55 149 H 22 132/79 100 08/22/24 01:12 40 08/22/24 00:42 154 H 08/22/24 00:37 22 08/22/24 00:22 152 H 20 122/91 98 08/21/24 23:20 98.4 F 154 H 20 117/77 96 Intake and Output 08/21/24 08/22/24 08/22/24 22:59 06:59 14:59 Output Total 150 Balance -150 Output: Drainage 150 Right Lateral Chest 150 Other: Weight 101.968 kg -GENERAL: The patient is alert and oriented x3, not in any acute distress. Well developed, well nourished. Generally weak, obese HEENT: Pupils are round and equally reacting to light. EOMI. No scleral icterus. No conjunctival pallor. Normocephalic, atraumatic. No pharyngeal erythema. No thyromegaly. CARDIOVASCULAR: S1 and S2 present. No murmurs, rubs, or gallops. -PULMONARY: Chest is clear to decreased breath sounds on the right side,, expiratory wheezing , no crackles. ABDOMEN: Soft, nontender, nondistended, normoactive bowel sounds. No palpable organomegaly. MUSCULOSKELETAL: No joint swelling or deformity. EXTREMITIES: No cyanosis, clubbing, or pedal edema. NEUROLOGICAL: Gross neurological examination did not reveal any focal deficits. SKIN: No rashes. no petechiae. Results CBC & Chem 7: 08/22/24 09:20 08/21/24 23:18 Labs: Abnormal Lab Results - Last 24 Hours (Table) 08/21/24 08/21/24 08/21/24 Range/Units 23:18 23:18 23:18 RBC 2.71 L (4.30-5.90) m/uL Hgb 9.1 L (13.0-17.5) gm/dL Hct 26.8 L (39.0-53.0) % RDW 18.2 H (11.5-15.5) % PT 16.3 H (10.0-12.5) sec INR 1.6 H (<1.2) D-Dimer 3.59 H (<0.60) mg/L FEU VBG pH (7.31-7.41) VBG HCO3 (24-28) mmol/L Sodium 133 L (137-145) mmol/L BUN 25 H (9-20) mg/dL Glucose 167 H (74-99) mg/dL Troponin I (0.000-0.034) ng/mL Total Protein 6.1 L (6.3-8.2) g/dL Albumin 3.0 L (3.5-5.0) g/dL 08/21/24 08/22/24 Range/Units 23:18 05:24 RBC (4.30-5.90) m/uL Hgb (13.0-17.5) gm/dL Hct (39.0-53.0) % RDW (11.5-15.5) % PT (10.0-12.5) sec INR (<1.2) D-Dimer (<0.60) mg/L FEU VBG pH 7.18 L* (7.31-7.41) VBG HCO3 19 L (24-28) mmol/L Sodium (137-145) mmol/L BUN (9-20) mg/dL Glucose (74-99) mg/dL Troponin I 0.551 H* (0.000-0.034) ng/mL Total Protein (6.3-8.2) g/dL Albumin (3.5-5.0) g/dL Assessment and Plan Assessment: Right central lung cancer status post chemoradiotherapy and immunotherapy Bilateral pleural effusion right more than left, and pulmonary edema/alveolar edema. 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 Hypotension Makes metabolic and respiratory acidosis D-dimer is elevated High troponin Coronary artery disease Plan: Continue with oxygen therapy Continue with IV Lasix Continue with antibiotics as per pulmonary team Patient started on heparin drip Cardiology and pulmonary team consult Further recommendation based on the clinical course GI prophylaxis: Pepcid DVT prophylaxis subcutaneous heparin Prognosis is guarded
[2024-08-22 11:22] VITALS: RESP 20
--- NOTE | 2024-08-22 12:54 | P.CNPUL ---
History of Present Illness Consult date: 08/22/24 Requesting physician: Mendez Singh Reason for consult: dyspnea, abnormal CXR/CT Chief complaint: Shortness of breath History of present illness: This is a pleasant 74-year-old male patient with a known history of recurrent non-small cell lung cancer. He was originally diagnosed with lung cancer and 2020 and had received chemotherapy, radiation therapy and subsequent immunotherapy. He had bronchoscopy with biopsies in May 2024 that was positive for non-small cell carcinoma. He also had recurrent right sided pleural effusion and subsequent Pleurx catheter placed in June 2024. He is currently receiving chemotherapy. He also received 2 units of packed red blood cells earlier this week for anemia. He presented here to the emergency room last evening with increasing shortness of breath, lower extremity swelling. Chest x-ray showed evidence of severe pulmonary edema and pleural effusion. CT angiogram ruled out pulmonary embolism. There is mild borderline moderate right greater than left pleural effusions. There is central right lung neoplasm with associated obstructive atelectasis. Pleurx catheter from the right side was drained with only 200 cc of fluid returned. White count 8.1. Hemoglobin 9.6. Platelets 270. INR 1.8. Sodium 133. Potassium 4.4. Bicarb 26. BUN 25. Creatinine 1.19. Glucose 167. Troponin 0.55, 1.48. proBNP 6540. EKG revealed atrial flutter with a rapid ventricular response. He was initiated on amiodarone currently at 1 mg/min. Normal saline at 20 mL/h. He received Lasix 40 mg IVP x 1. Initiated on a heparin drip. He is initiated on ceftriaxone. He is seen today in consultation in the emergency room. He is awake and alert. Feeling a bit better today compared to yesterday. He is currently on a nonrebreather mask O2 saturations in the high 90s. He is afebrile. Still tachycardic. Review of Systems REVIEW OF SYSTEMS: CONSTITUTIONAL: Denies any recent significant weight loss or weight gain. EYES: Denies change in vision. EARS, NOSE, MOUTH, THROAT: Denies headaches, denies sore throat. CARDIOVASCULAR: Denies chest pain, palpitations or syncopal episodes. RESPIRATORY: Positive for shortness of breath, cough, congestion no hemoptysis. GASTROINTESTINAL: Denies change in appetite, denies abdominal pain GENITOURINARY: Denies hematuria, denies infections. MUSKULOSKELETAL: Positive for swelling. INTEGUMENTARY: Denies rash, denies eczema. NEUROLOGICAL: Denies recent memory loss, no recent seizure activity. PSYCHIATRIC: Denies anxiety, denies depression. HEMATOLOGIC/LYMPHATIC: Denies anemia, denies enlarged lymph nodes. Past Medical History Past Medical History: Coronary Artery Disease (CAD), Cancer, Chest Pain / Angina, COPD, GERD/Reflux, Hyperlipidemia, Hypertension, Vascular Disorder Additional Past Medical History / Comment(s): Spondylolithiasis L5-S1, back pain, generalized swelling, lung cancer 2019 History of Any Multi-Drug Resistant Organisms: None Reported Past Surgical History: Back Surgery, Coronary Bypass/CABG, Heart Catheterization, Heart Catheterization With Stent, Orthopedic Surgery Additional Past Surgical History / Comment(s): 1969 L knee injury with surgery, 1987 vasectomy, 1989 cervical surgery with bone donated from hip, PCI with stents, L shoulder surgery d/t injury, bilateral carpal tunnel releases, 2011 AAA repair, post AAA incision infection/muscle flap, 2012 stent R leg behind knee, 2 lumbar spine surgeries, 2017 CABG-3 vessel Past Anesthesia/Blood Transfusion Reactions: No Reported Reaction Additional Past Anesthesia/Blood Transfusion Reaction / Comment(s): Pt has clausterphobia. Date of Last Stent Placement:: 12/09/19 Cait Cool Past Psychological History: No Psychological Hx Reported Smoking Status: Former smoker Past Alcohol Use History: None Reported Past Drug Use History: None Reported - Past Family History Father Family Medical History: Cancer Additional Family Medical History / Comment(s): Father of small cell lung cancer. Mother Family Medical History: Cancer Additional Family Medical History / Comment(s): Mother had leukemia. Medications and Allergies Home Medications Medication Instructions Recorded Confirmed Type Apixaban [Eliquis] 5 mg PO BID 02/11/23 08/22/24 History Atorvastatin [Lipitor] 20 mg PO HS 02/11/23 08/22/24 History Clopidogrel [Plavix] 75 mg PO DAILY 02/11/23 08/22/24 History Ferrous Sulfate [Iron (65 MG 325 mg PO DAILY 02/11/23 08/22/24 History Elemental)] Fluticasone/Umeclidin/Vilanter 1 puff INHALATION RT-DAILY 02/11/23 08/22/24 History [Trelegy Ellipta 100-62.5-25] Furosemide [Lasix] 40 mg PO Q48H 02/11/23 08/22/24 History Gabapentin [Neurontin] 100 mg PO BID 02/11/23 08/22/24 History Losartan [Cozaar] 25 mg PO DAILY 02/11/23 08/22/24 History Metoprolol Tartrate [Lopressor] 100 mg PO BID 02/11/23 08/22/24 History Pantoprazole Sodium 40 mg PO DAILY 02/11/23 08/22/24 History Vitamin B Complex 1 cap PO DAILY 02/11/23 08/22/24 History Albuterol Nebulized [Ventolin 2.5 mg INHALATION RT-TID 08/22/24 08/22/24 History Nebulized] Multivitamins, Thera [Multivitamin 1 tab PO DAILY 08/22/24 08/22/24 History (formulary)] Allergies Allergy/AdvReac Type Severity Reaction Status Date / Time No Known Allergies Allergy Verified 08/22/24 09:44 Physical Exam Vitals: Vital Signs Temp Pulse Pulse Resp BP Pulse Ox FiO2 08/22/24 11:00 121 H 20 84/48 98 08/22/24 10:00 129 H 22 116/70 96 08/22/24 09:00 96 08/22/24 07:30 123 H 14 79/55 98 08/22/24 07:02 97.8 F 123 H 18 99/60 99 08/22/24 07:00 124 H 12 99/60 99 08/22/24 05:58 125 H 16 91/55 98 08/22/24 04:37 133 H 20 92/55 94 L 08/22/24 04:00 131 H 28 H 101/67 93 L 08/22/24 03:30 140 H 25 H 108/61 94 L 08/22/24 03:00 141 H 14 120/57 95 08/22/24 02:36 134 H 21 104/72 91 L 08/22/24 02:30 134 H 20 125/77 98 08/22/24 02:15 149 H 24 123/78 95 08/22/24 02:00 158 H 20 127/66 100 08/22/24 01:57 147 H 20 111/73 100 08/22/24 01:55 149 H 22 132/79 100 08/22/24 01:12 40 08/22/24 00:42 154 H 08/22/24 00:37 22 08/22/24 00:22 152 H 20 122/91 98 08/21/24 23:20 98.4 F 154 H 20 117/77 96 Intake and Output 08/21/24 08/22/24 08/22/24 22:59 06:59 14:59 Output Total 150 Balance -150 Output: Drainage 150 Right Lateral Chest 150 Other: Weight 101.968 kg GENERAL EXAM: Alert, weak, 74-year-old male patient, on nonrebreather mask, fairly comfortable in no apparent distress. HEAD: Normocephalic. EYES: Normal reaction of pupils, equal size. NOSE: Clear with pink turbinates. THROAT: No erythema or exudates. NECK: No masses, no JVD. CHEST: No chest wall deformity. LUNGS: Equal air entry with crackles in the bilateral bases. CVS: S1 and S2 normal with no audible murmur, irregular rhythm. Tachycardic. ABDOMEN: No hepatosplenomegaly, normal bowel sounds, no guarding or rigidity. SPINE: No scoliosis or deformity SKIN: No rashes CENTRAL NERVOUS SYSTEM: No focal deficits, tone is normal in all 4 extremities. EXTREMITIES: There is 1+ peripheral edema. No clubbing, no cyanosis. Peripheral pulses are intact. Results - Laboratory Findings CBC and BMP: 08/22/24 09:20 08/21/24 23:18 PT/INR, D-dimer PT 18.3 sec (10.0-12.5) H 08/22/24 09:20 INR 1.8 (<1.2) H 08/22/24 09:20 D-Dimer 3.59 mg/L FEU (<0.60) H 08/21/24 23:18 Abnormal lab findings: Abnormal Labs 08/21/24 08/21/24 08/21/24 23:18 23:18 23:18 RBC 2.71 L Hgb 9.1 L Hct 26.8 L MCV RDW 18.2 H Lymphocytes # PT 16.3 H INR 1.6 H D-Dimer 3.59 H VBG pH VBG HCO3 Sodium 133 L BUN 25 H Glucose 167 H Troponin I Total Protein 6.1 L Albumin 3.0 L 08/21/24 08/22/24 08/22/24 23:18 05:24 05:24 RBC Hgb Hct MCV RDW Lymphocytes # PT INR D-Dimer VBG pH 7.18 L* VBG HCO3 19 L Sodium BUN Glucose Troponin I 0.551 H* 1.480 H* Total Protein Albumin 08/22/24 08/22/24 09:20 09:20 RBC 2.96 L Hgb 9.6 L Hct 30.0 L MCV 101.3 H RDW 18.1 H Lymphocytes # 0.5 L PT 18.3 H INR 1.8 H D-Dimer VBG pH VBG HCO3 Sodium BUN Glucose Troponin I Total Protein Albumin - Diagnostic Findings Chest x-ray: image reviewed CT scan - chest: image reviewed Assessment and Plan Assessment: Acute hypoxemic respiratory failure secondary to acute pulmonary edema and pleural effusions, possible underlying pneumonia Atrial flutter with rapid ventricular response Elevated troponins History of recurrent pleural effusion on the right and subsequent Pleurx catheter placed June 2024 Recurrent non-small cell lung cancer originally diagnosed in 2019, currently receiving chemotherapy Anemia secondary to above requiring 2 units of packed red blood cells outpatient on August 18, 2024 Coronary artery disease with previous stents and bypass surgery with most recent coronary disease pending stent placement History of AAA repair History of hypertension Hyperlipidemia Former smoker Plan: The patient was seen and evaluated Imaging, labs and medications reviewed Give additional Lasix 40 mg IVP now Continue amiodarone at 1 mg/min Continue a heparin drip Transition to high flow nasal cannula as tolerated Add Symbicort, albuterol HFA Continue ceftriaxone Check a procalcitonin Remains a full code per patient and family request We will continue to follow and make further recommendations based on his clinical status I have personally seen and examined the patient, performed the documentation and the assessment and plan as written. Number of minutes spent on the visit: 20 Dictation was produced using [employer] dictation software. Please excuse any grammatical, word or spelling errors. Time with Patient: Greater than 30
--- NOTE | 2024-08-22 14:16 | P.CRDCN ---
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 Patient presented to the hospital with worsening shortness of breath. He has a known history of lung cancer and is currently receiving chemotherapy. He has been struggling with pleural effusions and has a Pleurx catheter in place. Cardiology has been consulted for abnormal troponins as well as A-fib with RVR. According to family patient does not have a history of atrial fibrillation, but did recently undergo coronary angiogram where he was found to have an intermediate severe lesion and a single-vessel, however medical therapy was chosen with his recent reoccurrence of lung cancer. DIAGNOSTICS: EKG shows atrial fibrillation with RVR Chest x-ray shows severe pulmonary edema and pleural effusions CT of the chest shows moderate sized bilateral pleural effusions, worse on the right with right sided Pleurx catheter. Central right lung neoplasm with associated obstructive atelectasis. Bilateral alveolar and interstitial edema consistent with fluid overload WBC 8.1, hemoglobin 9.6, hematocrit 30.0, platelet 270, sodium 133, potassium 4.4, BUN 25, creatinine 1.19, troponin 0.55, 1.48, BNP 6540, AST 36, ALT 23 REVIEW OF SYSTEMS: No fever or chills. No cough or expectoration. No diaphores is. Patient denies headache, dizziness, blurred vision, double vision. Patient denies any stomach discomfort. No nausea, vomiting. No hematochezia. No hematemesis. Denies any black stools or blood in his stools. Denies dysuria or hematuria. No muscle weakness or numbness. Positive for shortness of breath. PHYSICAL EXAMINATION: This is a 74-year-old male in respiratory distress. HEENT: Head is atraumatic, normocephalic. Pupils are equal, round. Sclerae anicteric. Conjunctivae are clear. Mucous membranes of the mouth are moist. Neck is supple. There is no jugular venous distention. No carotid bruit is heard. CHEST EXAMINATION: Lungs are fairly reduced to auscultation. No chest wall tenderness is noted on palpation or with deep breathing. HEART EXAMINATION: Irregular rate and rhythm. Notably tachycardic S1, S2 heard. No murmurs, gallops or rub. ABDOMEN: Soft, nontender. Bowel sounds are heard. No organomegaly noted. EXTREMITIES: 2+ peripheral pulses with no evidence of peripheral edema and no calf tenderness noted. NEUROLOGIC EXAMINATION: Patient is awake, alert and oriented x3. FINAL ASSESSMENT AND PLAN: New onset A-fib with RVR Acute hypoxic respiratory failure, acute pulmonary edema and pleural effusion Acute congestive heart failure Elevated troponins History of CAD, prior bypass, 95% lesion on recent coronary angiogram per family Recurrent nonsmall cell lung cancer, currently on chemotherapy Anemia PLAN Continue IV amiodarone Start heparin drip Consider cardioversion after 24 to 48 hours Further recommendations thereafter I am dictating on behalf of Dr Francis Olmedo's history/physical and assessment/plan. Past Medical History Past Medical History: Coronary Artery Disease (CAD), Cancer, Chest Pain / Angina, COPD, GERD/Reflux, Hyperlipidemia, Hypertension, Vascular Disorder Additional Past Medical History / Comment(s): Spondylolithiasis L5-S1, back pain, generalized swelling, lung cancer 2020 History of Any Multi-Drug Resistant Organisms: None Reported Past Surgical History: Back Surgery, Coronary Bypass/CABG, Heart Catheterization, Heart Catheterization With Stent, Orthopedic Surgery Additional Past Surgical History / Comment(s): 1969 L knee injury with surgery, 1987 vasectomy, 1989 cervical surgery with bone donated from hip, PCI with stents, L shoulder surgery d/t injury, bilateral carpal tunnel releases, 2011 AAA repair, post AAA incision infection/muscle flap, 2012 stent R leg behind knee, 2 lumbar spine surgeries, 2017 CABG-3 vessel Past Anesthesia/Blood Transfusion Reactions: No Reported Reaction Additional Past Anesthesia/Blood Transfusion Reaction / Comment(s): Pt has clausterphobia. Date of Last Stent Placement:: 12/09/19 Cait Cool Past Psychological History: No Psychological Hx Reported Smoking Status: Former smoker Past Alcohol Use History: None Reported Past Drug Use History: None Reported - Past Family History Father Family Medical History: Cancer Additional Family Medical History / Comment(s): Father of small cell lung cancer. Mother Family Medical History: Cancer Additional Family Medical History / Comment(s): Mother had leukemia. Medications and Allergies Home Medications Medication Instructions Recorded Confirmed Type Apixaban [Eliquis] 5 mg PO BID 02/11/23 08/22/24 History Atorvastatin [Lipitor] 20 mg PO HS 02/11/23 08/22/24 History Clopidogrel [Plavix] 75 mg PO DAILY 02/11/23 08/22/24 History Ferrous Sulfate [Iron (65 MG 325 mg PO DAILY 02/11/23 08/22/24 History Elemental)] Fluticasone/Umeclidin/Vilanter 1 puff INHALATION RT-DAILY 02/11/23 08/22/24 History [Trelegy Ellipta 100-62.5-25] Furosemide [Lasix] 40 mg PO Q48H 02/11/23 08/22/24 History Gabapentin [Neurontin] 100 mg PO BID 02/11/23 08/22/24 History Losartan [Cozaar] 25 mg PO DAILY 02/11/23 08/22/24 History Metoprolol Tartrate [Lopressor] 100 mg PO BID 02/11/23 08/22/24 History Pantoprazole Sodium 40 mg PO DAILY 02/11/23 08/22/24 History Vitamin B Complex 1 cap PO DAILY 02/11/23 08/22/24 History Albuterol Nebulized [Ventolin 2.5 mg INHALATION RT-TID 08/22/24 08/22/24 History Nebulized] Multivitamins, Thera [Multivitamin 1 tab PO DAILY 08/22/24 08/22/24 History (formulary)] Allergies Allergy/AdvReac Type Severity Reaction Status Date / Time No Known Allergies Allergy Verified 08/22/24 09:44 Physical Exam Vitals: Vital Signs Temp Pulse Pulse Resp BP Pulse Ox FiO2 08/22/24 09:00 96 08/22/24 07:30 123 H 14 79/55 98 08/22/24 07:02 97.8 F 123 H 18 99/60 99 08/22/24 07:00 124 H 12 99/60 99 08/22/24 05:58 125 H 16 91/55 98 08/22/24 04:37 133 H 20 92/55 94 L 08/22/24 04:00 131 H 28 H 101/67 93 L 08/22/24 03:30 140 H 25 H 108/61 94 L 08/22/24 03:00 141 H 14 120/57 95 08/22/24 02:36 134 H 21 104/72 91 L 08/22/24 02:30 134 H 20 125/77 98 08/22/24 02:15 149 H 24 123/78 95 08/22/24 02:00 158 H 20 127/66 100 08/22/24 01:57 147 H 20 111/73 100 08/22/24 01:55 149 H 22 132/79 100 08/22/24 01:12 40 08/22/24 00:42 154 H 08/22/24 00:37 22 08/22/24 00:22 152 H 20 122/91 98 08/21/24 23:20 98.4 F 154 H 20 117/77 96 Intake and Output 08/21/24 08/22/24 08/22/24 22:59 06:59 14:59 Output Total 150 Balance -150 Output: Drainage 150 Right Lateral Chest 150 Other: Weight 101.968 kg Results 08/22/24 09:20 08/21/24 23:18 Cardiac Enzymes 08/21/24 08/21/24 08/22/24 Range/Units 23:18 23:18 05:24 AST 36 (17-59) U/L Troponin I 0.551 H* 1.480 H* (0.000-0.034) ng/mL Coagulation 08/21/24 Range/Units 23:18 PT 16.3 H (10.0-12.5) sec APTT 24.9 (22.0-30.0) sec CBC 08/21/24 Range/Units 23:18 WBC 6.0 (3.8-10.6) k/uL RBC 2.71 L (4.30-5.90) m/uL Hgb 9.1 L (13.0-17.5) gm/dL Hct 26.8 L (39.0-53.0) % Plt Count 202 (150-450) k/uL Comprehensive Metabolic Panel 08/21/24 Range/Units 23:18 Sodium 133 L (137-145) mmol/L Potassium 4.4 (3.5-5.1) mmol/L Chloride 98 (98-107) mmol/L Carbon Dioxide 26 (22-30) mmol/L BUN 25 H (9-20) mg/dL Creatinine 1.19 (0.66-1.25) mg/dL Glucose 167 H (74-99) mg/dL Calcium 8.4 (8.4-10.2) mg/dL AST 36 (17-59) U/L ALT 23 (4-49) U/L Alkaline Phosphatase 117 (38-126) U/L Total Protein 6.1 L (6.3-8.2) g/dL Albumin 3.0 L (3.5-5.0) g/dL Current Medications Generic Name Dose Route Start Last Admin Trade Name Freq PRN Reason Stop Dose Admin Furosemide 40 mg 08/22/24 09:00 Furosemide 10 Mg/Ml 4 Ml Vial IV DAILY [facility] Heparin Sodium (Porcine) 0 unit 08/22/24 08:58 Heparin Sodium 1,000 Un/Ml (10ml Vl) IV PER PROTOCOL PRN Low PTT Protocol Sodium Chloride 1,000 mls @ 20 mls/hr 08/22/24 04:15 08/22/24 05:57 Saline 0.9% IV 20 mls/hr .Q24H DEWEY Administration Ceftriaxone Sodium 2 gm/ 50 mls @ 100 mls/hr 08/22/24 09:00 Sodium Chloride IVPB Q24HR DEWEY Protocol Heparin Sodium/Sodium Chloride 250 mls @ 9.993 mls/hr 08/22/24 09:00 25,000 unit/ Sodium Chloride IV .Q24H DEWEY Protocol 9.8 UNITS/KG/HR Naloxone HCl 0.2 mg 08/22/24 04:13 Naloxone 0.4 Mg/Ml 1 Ml Vial IV Q2M PRN Opioid Reversal Intake and Output 08/21/24 08/22/24 08/22/24 22:59 06:59 14:59 Output Total 150 Balance -150 Output: Drainage 150 Right Lateral Chest 150 Other: Weight 101.968 kg 08/21/24 23:18 08/21/24 23:18
[2024-08-22] MEDS: HYDROmorphone 0.5 MG/0.5 ML SYRINGE IVP PRN (16:07)
[2024-08-22 16:12] VITALS: BP 92/60; PULSE 125
[2024-08-22] MEDS: HEPARIN SODIUM 1,000 UN/ML (10ML VL) IV PRN (16:51)
[2024-08-22] MEDS ORDERED: HYDROcodone/APAP 5-325MG 1 EACH TAB PO PRN (18:57)
--- NOTE | 2024-08-22 23:29 | P.CONS ---
History of Present Illness - Reason for Consult Consult date: 08/22/24 lung cancer, family have questions about prognosis Requesting physician: Sebastian Swift - Chief Complaint SOB - History of Present Illness Mr. 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 Work up with CXR and CT/PE showed central right lung cancer/mass, bilateral small pleural effusions (has known malignant effusions and pleurex catheter), and pulmonary edema. No PE. Found to be tachycardic, in a. fib with RVR/a. flutter. WBC 8, Hgb 9.6, plt 270, Cr 1.19. He recently was found to have endobronchial disease progression and completed 3 cycles of carbo/alimta however tolerated poorly. repeat PET and MRI brain planned prior to continued chemotherapy. Still with SOB, and having decreased urine output despite lasix. Oncologic history: Follows with Dr. Fernandes. Carter presented with increasing SOB, was evaluated by Dr Tobias, CT Scan revealed large 7X6 cm RUL mass with mediastinal invasion along with RUL bronchus obstruction and mediastinal lymphadenopathy. He reported increasing SOB X 3 weeks along with recent hemoptysis and chest discomfort, had recent coronary stent by Dr Gamez. Bronchoscopy by Dr Tobias revealed large Endobronchial tumor with RUL bronchus obstruction, biopsy revealed Adenocarcinoma of lung. He smoked 1 PPD X 40 years, quit 8 years ago, denies excessive ETOH use. 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 Denies family history of malignancy 12/31/19: C/O increasing SOB. PET Scan : [id number], CT of head with contrast negative 01/21/20: Feels well, tolerating concurrent Radiation therapy/weekly chemotherapy well with only fatigue as side effect so far. 02/25/20: Feels well, completed concurrent radiation/Chemotherapy. C/O dysphagia, SOB & weakness. 03/31/20: C/O fever/chills (99-100), Covid test negative. C/O generalized fatigue. 04/06/20-patient is here with his for adjuvant Imfinzi ed-he has complaints of night sweats, soaking, 2-3 each week. He is going to document in monitor this. He still does not feel he is quite back to normal strength after chemotherapy. I've encouraged patient to continue to be active. He is describing symptoms of mild to moderate anxiety including labile emotions, difficulty concentrating. He denies any pain. 04/14/20-Pt here today s/p 1st cycle of imfinzi, he is also due for a dose of parenteral iron. Has c/o of SOB on exertion/aactivity intolerance, persistent last few days, worse then baseline. He is very tired, has lost all his energy, "exhausted", having a hard time staying warm, he states sleeping up to 10 hours a day-feels that is ok, kind of his baseline. Had 1 episode of night sweats. Harsh cough, difficult to expectorate, thick sputum. He denies pain. No F, N, V, chest pain, D, swelling, rash, vision changes. 04/26/20: C/O chronic mild dyspnea, fully active, tolerated Imfinzi well. 06/02/20: Reporting having increasing congestion & wheezing at night for last week. Was recently evaluated by Dr Tobias, PET Scan scheduled Jul 2020, Gabapentin helped with peripheral neuropathy. 07/19/20: Feels well, tolerating Imfinzi well, relatively fully active. PET Scan: complete metabolic response. 09/13/20: Feels Ok, C/O exetional dyspnea and thick white sputom production. Tolerating Imfinzi well. 10/25/20: C/O mild/moderate exertional dyspnea, remains fully active, tolerating Imfinzi well. 12/06/20: Tolerating Imfinzi well, C/O stable exertional dyspnea 02/09/21: Feels well, fully active, tolerating Imfinzi well. 03/10/21: Feels well, C/O fatigue, tolerating Imfinzi well. 04/06/21: Feels well, C/O fatigue and stable dyspnea. Tolerating Imfinzi well. 05/18/21: C/O stable exertional dyspnea. PET Scan: New mediastinal [address] 09/26/21: Feels well, has stable dyspnea, PET Scan (September 2021) > No active disease. 01/23/22: Feels well, no new symptoms, has chronic dyspnea. 04/25/22: Feels well, C/O chronic SOB, remains fully active. 10/16/22: Feels Ok, C/O SOB (Chronic), enjoying normal performence status & quali ty of life. 01/16/23: C/O fatigue & mild SOB 03/05/23: C/O SOB & fatigue 04/23/23: Feels Ok, C/O chronic SOB 09/17/23: Feels OK, C/O exertional dyspnea. Tolerating Nivolumab well 10/31/23: Feels Ok, C/O fatigue & exertional dyspnea 12/13/23: Stable, C/O fatigue 02/07/24: C/O increasing SOB & weakness, tolerating Opdivo well. Denies any visceral or skeletal pain 06/12/24: Had increased SOB > Thoracentesis > + malignant pleural effusion (Adeno Ca). Bronchoscopy with Bx ; Endobronchial tumor > Adeno Ca. PD-L1 negative. 08/12/24 Patient presents to the clinic s/p cycle 3 of carbo/Alimta on 08/03. Patient r eports symptoms were more significant with this last cycle. He had profound fatigue as well as been having intermittent lightheadedness and has felt brain fog and mild confusion. Denies visual changes, headache, slurred speech, facial droop and unilateral weakness. Also reporting constipation but has been taking Colace with improvement in symptoms. Denies n/v, tolerating oral intake. Patient reports over the last 24 hours symptoms have began to improve. He is still having 800-900cc of output from pleurx drain most days. Patient was tearful at today's visit and was questioning if he can handle any further chemotherapy. Patient verbalized he would like to have treatment response scans before proceeding to next cycle to ensure treatment is working. Past Medical History Past Medical History: Coronary Artery Disease (CAD), Cancer, Chest Pain / Angina, COPD, GERD/Reflux, Hyperlipidemia, Hypertension, Vascular Disorder Additional Past Medical History / Comment(s): Spondylolithiasis L5-S1, back pain, generalized swelling, lung cancer 2020 History of Any Multi-Drug Resistant Organisms: None Reported Past Surgical History: Back Surgery, Coronary Bypass/CABG, Heart Ca theterization, Heart Catheterization With Stent, Orthopedic Surgery Additional Past Surgical History / Comment(s): 1969 L knee injury with surgery, 1987 vasectomy, 1989 cervical surgery with bone donated from hip, PCI with stents, L shoulder surgery d/t injury, bilateral carpal tunnel releases, 2011 AAA repair, post AAA incision infection/muscle flap, 2013 stent R leg behind knee, 2 lumbar spine surgeries, 2017 CABG-3 vessel Past Anesthesia/Blood Transfusion Reactions: No Reported Reaction Additional Past Anesthesia/Blood Transfusion Reaction / Comm: Pt has clausterphobia. Date of Last Stent Placement:: 12/09/19 Cait Cool Past Psychological History: No Psychological Hx Reported Smoking Status: Former smoker Past Alcohol Use History: None Reported Past Drug Use History: None Reported - Past Family History Father Family Medical History: Cancer Additional Family Medical History / Comment(s): Father of small cell lung cancer. Mother Family Medical History: Cancer Additional Family Medical History / Comment(s): Mother had leukemia. Medications and Allergies Home Medications Medication Instructions Recorded Confirmed Type Apixaban [Eliquis] 5 mg PO BID 02/11/23 08/22/24 History Atorvastatin [Lipitor] 20 mg PO HS 02/11/23 08/22/24 History Clopidogrel [Plavix] 75 mg PO DAILY 02/11/23 08/22/24 History Ferrous Sulfate [Iron (65 MG 325 mg PO DAILY 02/11/23 08/22/24 History Elemental)] Fluticasone/Umeclidin/Vilanter 1 puff INHALATION RT-DAILY 02/11/23 08/22/24 History [Trelegy Ellipta 100-62.5-25] Furosemide [Lasix] 40 mg PO Q48H 02/11/23 08/22/24 History Gabapentin [Neurontin] 100 mg PO BID 02/11/23 08/22/24 History Losartan [Cozaar] 25 mg PO DAILY 02/11/23 08/22/24 History Metoprolol Tartrate [Lopressor] 100 mg PO BID 02/11/23 08/22/24 History Pantoprazole Sodium 40 mg PO DAILY 02/11/23 08/22/24 History Vitamin B Complex 1 cap PO DAILY 02/11/23 08/22/24 History Albuterol Nebulized [Ventolin 2.5 mg INHALATION RT-TID 08/22/24 08/22/24 History Nebulized] Multivitamins, Thera [Multivitamin 1 tab PO DAILY 03/22/25 03/22/25 History (formulary)] Allergies Allergy/AdvReac Type Severity Reaction Status Date / Time No Known Allergies Allergy Verified 08/22/24 21:01 Physical Exam Vitals: Vital Signs Temp Pulse Pulse Resp BP Pulse Ox FiO2 08/22/24 16:00 125 H 20 92/60 96 08/22/24 13:00 118 H 20 100/59 96 08/22/24 11:00 121 H 20 84/48 98 08/22/24 10:00 129 H 22 116/70 96 08/22/24 09:00 96 08/22/24 07:30 123 H 14 79/55 98 08/22/24 07:02 97.8 F 123 H 18 99/60 99 08/22/24 07:00 124 H 12 99/60 99 08/22/24 05:58 125 H 16 91/55 98 08/22/24 04:37 133 H 20 92/55 94 L 08/22/24 04:00 131 H 28 H 101/67 93 L 08/22/24 03:30 140 H 25 H 108/61 94 L 08/22/24 03:00 141 H 14 120/57 95 08/22/24 02:36 134 H 21 104/72 91 L 08/22/24 02:30 134 H 20 125/77 98 08/22/24 02:15 149 H 24 123/78 95 08/22/24 02:00 158 H 20 127/66 100 08/22/24 01:57 147 H 20 111/73 100 08/22/24 01:55 149 H 22 132/79 100 08/22/24 01:12 40 08/22/24 00:42 154 H 08/22/24 00:37 22 08/22/24 00:22 152 H 20 122/91 98 08/21/24 23:20 98.4 F 154 H 20 117/77 96 Intake and Output 08/22/24 08/22/24 08/22/24 06:59 14:59 22:59 Intake Total 68.952 Output Total 150 Balance -150 68.952 Intake: Intake, IV Titration 68.952 Amount Heparin Sod,Pork in 0.45% 68.952 NaCl 25,000 unit In 0.45 % NaCl 1 250ml.bag @ 9.8 UNITS/KG/HR 9.993 mls/hr IV .Q24H DEWEY Rx#: [id number] Output: Drainage 150 Right Lateral Chest 150 Other: Weight 101.968 kg Laying on right side, mild respiratory distress, on oxygen per NC, bilateral LE edema. alert and oriented x 3. Results CBC & Chem 7: 08/22/24 09:20 08/21/24 23:18 Labs: Abnormal Lab Results - Last 24 Hours (Table) 08/21/24 08/21/24 08/21/24 Range/Units 23:18 23:18 23:18 RBC 2.71 L (4.30-5.90) m/uL Hgb 9.1 L (13.0-17.5) gm/dL Hct 26.8 L (39.0-53.0) % MCV (80.0-100.0) fL RDW 18.2 H (11.5-15.5) % Lymphocytes # (1.0-4.8) k/uL PT 16.3 H (10.0-12.5) sec INR 1.6 H (<1.2) APTT (22.0-30.0) sec D-Dimer 3.59 H (<0.60) mg/L FEU VBG pH (7.31-7.41) VBG HCO3 (24-28) mmol/L Sodium 133 L (137-145) mmol/L BUN 25 H (9-20) mg/dL Glucose 167 H (74-99) mg/dL Troponin I (0.000-0.034) ng/mL Total Protein 6.1 L (6.3-8.2) g/dL Albumin 3.0 L (3.5-5.0) g/dL 08/21/24 08/22/24 08/22/24 Range/Units 23:18 05:24 05:24 RBC (4.30-5.90) m/uL Hgb (13.0-17.5) gm/dL Hct (39.0-53.0) % MCV (80.0-100.0) fL RDW (11.5-15.5) % Lymphocytes # (1.0-4.8) k/uL PT (10.0-12.5) sec INR (<1.2) APTT (22.0-30.0) sec D-Dimer (<0.60) mg/L FEU VBG pH 7.18 L* (7.31-7.41) VBG HCO3 19 L (24-28) mmol/L Sodium (137-145) mmol/L BUN (9-20) mg/dL Glucose (74-99) mg/dL Troponin I 0.551 H* 1.480 H* (0.000-0.034) ng/mL Total Protein (6.3-8.2) g/dL Albumin (3.5-5.0) g/dL 08/22/24 08/22/24 08/22/24 Range/Units 09:20 09:20 14:24 RBC 2.96 L (4.30-5.90) m/uL Hgb 9.6 L (13.0-17.5) gm/dL Hct 30.0 L (39.0-53.0) % MCV 101.3 H (80.0-100.0) fL RDW 18.1 H (11.5-15.5) % Lymphocytes # 0.5 L (1.0-4.8) k/uL PT 18.3 H (10.0-12.5) sec INR 1.8 H (<1.2) APTT 34.3 H (22.0-30.0) sec D-Dimer (<0.60) mg/L FEU VBG pH (7.31-7.41) VBG HCO3 (24-28) mmol/L Sodium (137-145) mmol/L BUN (9-20) mg/dL Glucose (74-99) mg/dL Troponin I (0.000-0.034) ng/mL Total Protein (6.3-8.2) g/dL Albumin (3.5-5.0) g/dL Comments: serial pet scans reviewed, including images, and cxr images from 2024. Chest x-ray: report reviewed CT scan - chest: report reviewed Assessment and Plan Assessment: 1. metastatic lung cancer 2. a. fib with rvr 3. hypoxic respiratory failure 4. fluid overload Plan: Mr. Quiros is a very pleasant 74 yo male with metastatic NSCLC, with recent progression, s/p carbo/alimta x 3 cycles, with decline in PS and overall respiratory status since cycle 3 of chemo who is here for SOB. found to be in a. fib with rvr and hypoxic respiratory failure. CT chest with obstructive mass, and pulmonary edema. - i discussed his overall condition with him and his family ( at bedside, daughters over speakerphone). they are inquiring about overall prognosis and comfort measures - on my review of his serial images over the past couple years, including PET scans, CXR's and CT scans, he has slightly worsening obstruction and pulmonary edema on current CT however unclear if this is due to worsening endobronchial lesion vs fluid overload - unfortuantely he is having severe cardiac and renal dysfunction in addition to hypoxic respiratory failure, and without obvious improved disease despite 3 cycles of chemo -comfort measures very reasonable; they opted to go home with hospice. - need stat hospice referral for discharge home with hospice discussed with pt and family and they are agreeable. discussed with nursing staff. all questions answered.
== END 2024-08-22 21:05 | disposition hospice, inpatient (51) | DRG 180 ==
LOC: EC 23:12 → 3SCARD 08-22 04:17
PROVIDERS: ADMIT Hospitalist; ATTEND Hospitalist
PROC: 5A09357 Assistance with Respiratory Ventilation, Less than 24 Consecutive Hours, Continuous Positive Airway Pressure (ICD-10-PCS; principal; 2024-08-22)
DX: C34.01 Malignant neoplasm of right main bronchus (principal); J81.0 Acute pulmonary edema; J96.01 Acute respiratory failure with hypoxia; E87.4 Mixed disorder of acid-base balance; I48.92 Unspecified atrial flutter; R13.10 Dysphagia, unspecified; I48.91 Unspecified atrial fibrillation; G62.9 Polyneuropathy, unspecified; J91.0 Malignant pleural effusion; J44.9 Chronic obstructive pulmonary disease, unspecified; I11.0 Hypertensive heart disease with heart failure; Z95.828 Presence of other vascular implants and grafts; D64.9 Anemia, unspecified; J98.11 Atelectasis; R04.2 Hemoptysis; I50.9 Heart failure, unspecified; I73.9 Peripheral vascular disease, unspecified; Z66 Do not resuscitate; Z51.5 Encounter for palliative care; E78.5 Hyperlipidemia, unspecified; I95.9 Hypotension, unspecified; J98.09 Other diseases of bronchus, not elsewhere classified; E87.70 Fluid overload, unspecified; K59.00 Constipation, unspecified; I25.10 Atherosclerotic heart disease of native coronary artery without angina pectoris; M43.16 Spondylolisthesis, lumbar region; F41.9 Anxiety disorder, unspecified; Z79.01 Long term (current) use of anticoagulants; Z79.02 Long term (current) use of antithrombotics/antiplatelets; Z79.51 Long term (current) use of inhaled steroids; Z79.899 Other long term (current) drug therapy; Z92.3 Personal history of irradiation; Z92.21 Personal history of antineoplastic chemotherapy; Z87.891 Personal history of nicotine dependence; Z95.1 Presence of aortocoronary bypass graft; Z95.5 Presence of coronary angioplasty implant and graft
CPT/HCPCS: 36415; 51798; 71045; 71275; 80053; 82803; 83605; 83735; 83880; 84145; 84484; 85025; 85379; 85610; 85730; 86850; 86900; 86901; 87040; 93005; 94660; 96365; 96366; 96367; 96368; 96375; 96376; 99285

== ENCOUNTER 2024-08-22 20:42 | Inpatient (IN) | payer MEDICAID, MEDICARE, OTHER ==
[2024-08-22] MEDS ORDERED: ACETAMINOPHEN SUPPOSITORY 650 MG SUPP RECTAL PRN (21:01)
[2024-08-22] MEDS ORDERED: ATROPINE OPHTH SOLN 1% 5ML BTL SUBLINGUAL PRN (21:01)
[2024-08-23] MEDS: LORazepam 2 MG/ML INJ IV PRN (03:41)
[2024-08-23] MEDS: ONDANSETRON 4 MG/2 ML VIAL IVP PRN (04:50)
[2024-08-23] MEDS: HYDROmorphone 1 MG/ML 1 ML SYRINGE IVP PRN (04:52)
--- NOTE | 2024-08-23 18:53 | P.DS ---
Providers Date of admission: 08/22/24 21:01 Attending physician: Sebastian Swift Primary care physician: Stated None Hospital Course: Diagnoses: Right central lung cancer status post chemoradiotherapy and immunotherapy. Patient discharged home with hospice Bilateral pleural effusion right more than left, and pulmonary edema/alveolar edema. 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 Hypotension Makes metabolic and respiratory acidosis D-dimer is elevated High troponin, mostly non-STEMI Coronary artery disease Hospital course: This is a pleasant 74 years old male with past medical history of lung cancer on the right side status post chemoradiation and immunotherapy. He close chemotherapy every 3 weeks, he supposed to get last dose last Saturday but this past push for 1 week because he was feeling more tired and weak. He presents because of worsening shortness of breath more than a week. He is not on oxygen at home. He denies chest pain no significant coughing no significant fever chills. He developed little fever last week after he got 2 units of blood transfusion. He is known case of malignant right pleural effusion status post Pleurx catheter placed about 2 to 3 months ago. Also has a known case of coronary artery disease with 90% blockage as per family/ at bedside. At home he supposed to be on Plavix and Eliquis. On presentation he was somewhat hypotensive with blood pressure 91/55 and tachycardic with heart rate 125 up to 150. He is on oxygen now 15 L/min via nonrebreather. Hemoglobin 9.1 with baseline 8-12 and creatinine 1.1. D-dimer elevated 3.5 troponin elevated 0.55, proBNP is elevated 6540. CTA of the chest showing no pulmonary embolism but he has bilateral pleural effusion right more than left with central lung neoplasm and bilateral interstitial and alveolar edema suggesting fluid overload Chest x-ray showing severe pulmonary edema and pleural effusion mainly on the right side EKG showing atrial flutter at 153 with RVR and aberrant conduction versus PVCs Second EKG showing sinus tachycardia at 140 with possible atrial flutter Third EKG showing junctional tachycardia at 150 and possible atrial flutter. Patient evaluated by cardiology and pulmonary service, he was started on IV Lasix IV antibiotic with ceftriaxone and heparin drip Later on family requested about prognosis and requested hematology/oncology consult who evaluated the patient. After discussing the case with the family and the hematology team family decided to go home with hospice. This morning I came to see the patient he was on nasal cannula, he was less tachypneic but still breathing fast denies chest pain looks comfortable fully awake and oriented family at bedside including and daughter, confirmed to me they going home with hospice and as per he looks comfortable currently and does not need further pain medication Physical exam Gen: patient is a AAOx3, no distress CVS: S1-S2, RRR, no murmur -Lungs: B/L CTA, no wheezing, tachypnea with decreased air entry in the bases Abdomen: soft, no distention, no tenderness, positive bowel sounds Extremity: no leg edema or induration Time spent more than 35 minutes Plan - Discharge Summary New Discharge Prescriptions: No Action Ferrous Sulfate [Iron (65 MG Elemental)] 325 mg PO DAILY Atorvastatin [Lipitor] 20 mg PO HS Apixaban [Eliquis] 5 mg PO BID Metoprolol Tartrate [Lopressor] 100 mg PO BID Pantoprazole Sodium 40 mg PO DAILY Fluticasone/Umeclidin/Vilanter [Trelegy Ellipta 100-62.5-25] 1 puff INHALATION RT-DAILY Albuterol Nebulized [Ventolin Nebulized] 2.5 mg INHALATION RT-TID Multivitamins, Thera [Multivitamin (formulary)] 1 tab PO DAILY Gabapentin [Neurontin] 100 mg PO BID Furosemide [Lasix] 40 mg PO Q48H Clopidogrel [Plavix] 75 mg PO DAILY Losartan [Cozaar] 25 mg PO DAILY Vitamin B Complex 1 cap PO DAILY Discharge Medication List Apixaban [Eliquis] 5 mg PO BID 02/11/23 [History] Atorvastatin [Lipitor] 20 mg PO HS 02/11/23 [History] Clopidogrel [Plavix] 75 mg PO DAILY 02/11/23 [History] Ferrous Sulfate [Iron (65 MG Elemental)] 325 mg PO DAILY 02/11/23 [History] Fluticasone/Umeclidin/Vilanter [Trelegy Ellipta 100-62.5-25] 1 puff INHALATION RT-DAILY 02/11/23 [History] Furosemide [Lasix] 40 mg PO Q48H 02/11/23 [History] Gabapentin [Neurontin] 100 mg PO BID 02/11/23 [History] Losartan [Cozaar] 25 mg PO DAILY 02/11/23 [History] Metoprolol Tartrate [Lopressor] 100 mg PO BID 02/11/23 [History] Pantoprazole Sodium 40 mg PO DAILY 02/11/23 [History] Vitamin B Complex 1 cap PO DAILY 02/11/23 [History] Albuterol Nebulized [Ventolin Nebulized] 2.5 mg INHALATION RT-TID 08/22/24 [History] Multivitamins, Thera [Multivitamin (formulary)] 1 tab PO DAILY 08/22/24 [History] Follow up Appointment(s)/Referral(s): None,Stated [Primary Care Provider] - 1 Week Discharge Disposition: HOME WITH HOSPICE
== END 2024-08-23 16:10 | disposition hospice, inpatient (51) | DRG 951 ==
LOC: EC 20:42 → 5NMEDONC 21:01
PROVIDERS: ADMIT Hospitalist; ATTEND Hospitalist
DX: Z51.5 Encounter for palliative care (principal); I21.4 Non-ST elevation (NSTEMI) myocardial infarction; E87.4 Mixed disorder of acid-base balance; E87.20 Acidosis, unspecified; C34.90 Malignant neoplasm of unspecified part of unspecified bronchus or lung; J90 Pleural effusion, not elsewhere classified; J81.1 Chronic pulmonary edema; I48.92 Unspecified atrial flutter; Z66 Do not resuscitate; I25.10 Atherosclerotic heart disease of native coronary artery without angina pectoris; Z92.21 Personal history of antineoplastic chemotherapy; I95.9 Hypotension, unspecified; R00.0 Tachycardia, unspecified; Z79.02 Long term (current) use of antithrombotics/antiplatelets; Z79.01 Long term (current) use of anticoagulants; E78.5 Hyperlipidemia, unspecified; Z92.3 Personal history of irradiation

== ENCOUNTER 2024-09-15 10:56 | Inpatient (IN) | payer MEDICAID, MEDICARE, OTHER ==
--- NOTE | 2024-09-15 11:58 | ED ---
General Adult HPI - General Stated complaint: Restlessness Time Seen by Provider: 09/15/24 10:58 Source: family, EMS, RN notes reviewed, Caregiver Mode of arrival: EMS Limitations: altered mental status - History of Present Illness Initial comments: 74-year-old male presents emerged part via EMS from home for evaluation of terminal restlessness. Patient is under current hospice treatment with [facility] for lung CA he has exceeded his amount of medications at home and continues to be restless and was sent in for further treatment. Patient unable to provide any significant information at this time. All information provided by hospice nurse and family members. - Related Data Home Medications Medication Instructions Recorded Confirmed Apixaban [Eliquis] 5 mg PO BID 02/11/23 08/23/24 Atorvastatin [Lipitor] 20 mg PO HS 02/11/23 08/23/24 Clopidogrel [Plavix] 75 mg PO DAILY 02/11/23 08/23/24 Ferrous Sulfate [Iron (65 MG 325 mg PO DAILY 02/11/23 08/23/24 Elemental)] Fluticasone/Umeclidin/Vilanter 1 puff INHALATION RT-DAILY 02/11/23 08/23/24 [Trelegy Ellipta 100-62.5-25] Furosemide [Lasix] 40 mg PO Q48H 02/11/23 08/23/24 Gabapentin [Neurontin] 100 mg PO BID 02/11/23 08/23/24 Losartan [Cozaar] 25 mg PO DAILY 02/11/23 08/23/24 Metoprolol Tartrate [Lopressor] 100 mg PO BID 02/11/23 08/23/24 Pantoprazole Sodium 40 mg PO DAILY 02/11/23 08/23/24 Vitamin B Complex 1 cap PO DAILY 02/11/23 08/23/24 Albuterol Nebulized [Ventolin 2.5 mg INHALATION RT-TID 08/22/24 08/23/24 Nebulized] Multivitamins, Thera [Multivitamin 1 tab PO DAILY 08/22/24 08/23/24 (formulary)] Allergies Allergy/AdvReac Type Severity Reaction Status Date / Time No Known Allergies Allergy Verified 09/15/24 11:52 Review of Systems ROS Statement: Those systems with pertinent positive or pertinent negative responses have been documented in the HPI. ROS Other: All systems not noted in ROS Statement are negative. Past Medical History Past Medical History: Coronary Artery Disease (CAD), Cancer, Chest Pain / Angina, COPD, GERD/Reflux, Hyperlipidemia, Hypertension, Vascular Disorder Additional Past Medical History / Comment(s): Spondylolithiasis L5-S1, back pain, generalized swelling, lung cancer 2020 History of Any Multi-Drug Resistant Organisms: None Reported Past Surgical History: Back Surgery, Coronary Bypass/CABG, Heart Catheterization, Heart Catheterization With Stent, Orthopedic Surgery Additional Past Surgical History / Comment(s): 1969 L knee injury with surgery, 1987 vasectomy, 1989 cervical surgery with bone donated from hip, PCI with stents, L shoulder surgery d/t injury, bilateral carpal tunnel releases, 2011 AAA repair, post AAA incision infection/muscle flap, 2013 stent R leg behind knee, 2 lumbar spine surgeries, 2017 CABG-3 vessel Past Anesthesia/Blood Transfusion Reactions: No Reported Reaction Additional Past Anesthesia/Blood Transfusion Reaction / Comment(s): Pt has clausterphobia. Date of Last Stent Placement:: 12/09/19 Cait Cool Past Psychological History: No Psychological Hx Reported Smoking Status: Former smoker Past Alcohol Use History: None Reported Past Drug Use History: None Reported - Past Family History Father Family Medical History: Cancer Additional Family Medical History / Comment(s): Father of small cell lung cancer. Mother Family Medical History: Cancer Additional Family Medical History / Comment(s): Mother had leukemia. General Exam Limitations: altered mental status General appearance: alert, in no apparent distress Head exam: Present: atraumatic, normocephalic, normal inspection Eye exam: Present: normal appearance, PERRL, EOMI. Absent: scleral icterus, conjunctival injection, periorbital swelling ENT exam: Present: mucous membranes dry. Absent: normal exam, normal oropharynx, mucous membranes moist Neck exam: Present: normal inspection. Absent: tenderness, meningismus, lymphadenopathy Respiratory exam: Present: rales. Absent: normal lung sounds bilaterally, respiratory distress, wheezes, rhonchi, stridor Cardiovascular Exam: Present: normal rhythm, normal heart sounds. Absent: systolic murmur, diastolic murmur, rubs, gallop, clicks Neurological exam: Absent: alert, oriented X3 Course Vital Signs 09/15/24 10:58 Temperature 97.4 F L Pulse Rate 124 H Respiratory 20 Rate Blood Pressure 120/77 O2 Sat by Pulse 99 Oximetry Medical Decision Making - Medical Decision Making Was pt. sent in by a medical professional or institution (MARGARET Ann, DELIVERY RN, urgent care, hospital, or snf...) When possible be specific @ -Hospice Did you speak to anyone other than the patient for history (EMS, parent, family, police, friend...)? What history was obtained from this source @ -No Did you review nursing and triage notes (agree or disagree)? Why? @ -I reviewed and agree with nursing and triage notes Were old charts reviewed (outside hosp., previous admission, EMS record, old EKG, old radiological studies, urgent care reports/EKG's, snf records)? Report findings @ -No old charts were reviewed Differential Diagnosis (chest pain, altered mental status, abdominal pain women, abdominal pain men, vaginal bleeding, weakness, fever, dyspnea, syncope, headache, dizziness, GI bleed, back pain, seizure, CVA, palpatations, mental health, musculoskeletal)? @ -Lung cancer, altered mental status EKG interpreted by me (3pts min.). @ -None X-rays interpreted by me (1pt min.). @ -None done CT interpreted by me (1pt min.). @ -None done U/S interpreted by me (1pt. min.). @ -None done What testing was considered but not performed or refused? (CT, X-rays, U/S, labs)? Why? @ -None What meds were considered but not given or refused? Why? @ -None Did you discuss the management of the patient with other professionals (professionals i.e. MARGARET Ann, DELIVERY RN, lab, RT, psych nurse, clinical social worker, [place] [employer] group leader, teacher, credit officer, special education case manager)? Give summary @ -[facility] hospice admission Was smoking cessation discussed for >3mins.? @ -No Was critical care preformed (if so, how long)? @ -No Were there social determinants of health that impacted care today? How? (Homelessness, low income, unemployed, alcoholism, drug addiction, transportation, low edu. Level, literacy, decrease access to med. care, penitentiary, rehab)? @ -No Was there de-escalation of care discussed even if they declined (Discuss DNR or withdrawal of care, Hospice)? DNR status @ -No What co-morbidities impacted this encounter? (DM, HTN, Smoking, COPD, CAD, Cancer, CVA, ARF, Chemo, Hep., AIDS, mental health diagnosis, sleep apnea, morbid obesity)? @ -None Was patient admitted / discharged? Hospital course, mention meds given and route, prescriptions, significant lab abnormalities, going to OR and other pertinent info. @ -Admitted for hospice treatment Undiagnosed new problem with uncertain prognosis? @ -No Drug Therapy requiring intensive monitoring for toxicity (Heparin, Nitro, Insulin, Cardizem)? @ -No Were any procedures done? @ -No Diagnosis/symptom? @ -Lung cancer Acute, or Chronic, or Acute on Chronic? @ -Acute Uncomplicated (without systemic symptoms) or Complicated (systemic symptoms)? @ -Complicated Side effects of treatment? @ -No Exacerbation, Progression, or Severe Exacerbation? @ -No Poses a threat to life or bodily function? How? (Chest pain, [place], [place], pneumonia, PE, COPD, DKA, ARF, appy, cholecystitis, CVA, Diverticulitis, Homicidal, Suicidal, threat to staff... and all critical care pts) @ -Yes lung Ca] Disposition Clinical Impression: Lung cancer Disposition: ADMITTED IP TO THIS HOSP Condition: Poor Referrals: None,Stated [Primary Care Provider] - 1-2 days Time of Disposition: 11:58
[2024-09-15] MEDS: HYDROmorphone 1 MG/ML 1 ML SYRINGE IVP STA (12:46)
[2024-09-15] MEDS: LORazepam 2 MG/ML INJ IV STA (12:46)
[2024-09-15] MEDS: FUROSEMIDE 10 MG/ML 2 ML VIAL IV STA (13:52)
[2024-09-15] MEDS: HYDROmorphone 1 MG/ML 1 ML SYRINGE IVP PRN (13:55)
[2024-09-15] MEDS ORDERED: ACETAMINOPHEN SUPPOSITORY 650 MG SUPP RECTAL PRN (15:07)
[2024-09-15 15:15] VITALS: BP 117/77; RESP 12; TEMP 97.8
[2024-09-15 15:16] VITALS: PULSE 118
[2024-09-15] MEDS: SCOPOLAMINE 1 MG/72 HR PATCH TRANSDERM SCH (15:26)
[2024-09-15] MEDS: LORazepam 2 MG/ML INJ IV PRN (15:26)
[2024-09-15] MEDS: HYDROmorphone 2 MG/ML 1 ML SYRINGE IVP PRN (17:01)
--- NOTE | 2024-09-15 18:57 | P.HPIM ---
History of Present Illness H&P Date: 09/15/24 Chief Complaint: Restlessness Patient is a 74-year-old male with a past medical history of metastatic lung cancer who is currently at hospice care at home, coronary artery disease status post CABG history, history of stent placement, hypertension, hypokalemia, prior history of smoking and other multiple medical problems was brought to the hospital due to complaints of restlessness for the past 1 week. Patient is under hospice care treatment with [facility] care for metastatic lung cancer. As per the staff patient was given morphine, Ativan, without improvement in restlessness and extremely anxious. No fever no chills. Patient is currently on 6 L oxygen via nasal cannula. Patient cannot provide any history. Family is at bedside. He was given a dose of Dilaudid and Ativan IV in the ER. Review of Systems ROS unobtainable: due to mental status Past Medical History Past Medical History: Coronary Artery Disease (CAD), Cancer, Chest Pain / Angina, COPD, GERD/Reflux, Hyperlipidemia, Hypertension, Vascular Disorder Additional Past Medical History / Comment(s): Spondylolithiasis L5-S1, back pain, generalized swelling, lung cancer 2019 History of Any Multi-Drug Resistant Organisms: None Reported Past Surgical History: Back Surgery, Coronary Bypass/CABG, Heart Catheterization, Heart Catheterization With Stent, Orthopedic Surgery Additional Past Surgical History / Comment(s): 1969 L knee injury with surgery, 1987 vasectomy, 1989 cervical surgery with bone donated from hip, PCI with stents, L shoulder surgery d/t injury, bilateral carpal tunnel releases, 2011 AAA repair, post AAA incision infection/muscle flap, 2012 stent R leg behind knee, 2 lumbar spine surgeries, 2017 CABG-3 vessel Past Anesthesia/Blood Transfusion Reactions: No Reported Reaction Additional Past Anesthesia/Blood Transfusion Reaction / Comment(s): Pt has clausterphobia. Date of Last Stent Placement:: 12/09/19 Cait Cool Past Psychological History: No Psychological Hx Reported Smoking Status: Former smoker Past Alcohol Use History: None Reported Past Drug Use History: None Reported - Past Family History Father Family Medical History: Cancer Additional Family Medical History / Comment(s): Father of small cell lung cancer. Mother Family Medical History: Cancer Additional Family Medical History / Comment(s): Mother had leukemia. Medications and Allergies Home Medications Medication Instructions Recorded Confirmed Type Acetaminophen Suppository [Tylenol 650 mg RECTAL Q6H PRN 04/15/25 04/15/25 History Suppository] Albuterol Nebulized [Ventolin 1.25 mg INHALATION RT-TID 09/15/24 09/15/24 History Nebulized (Accuneb)] Haloperidol Oral Soln [Haldol Oral 10 mg SUBLINGUAL Q4H PRN 09/15/24 09/15/24 History Soln] Hyoscyamine Sulfate [Levsin-Sl] 0.125 mg SL Q4H PRN 09/15/24 09/15/24 History Ipratropium-Albuterol Nebulize 3 ml INHALATION RT-Q4H PRN 09/15/24 09/15/24 History [Duoneb 0.5 mg-3 mg/3 ml Soln] MORPHINE ORAL FERMIN CONC 20mg/mL 10 - 20 mg PO Q4H PRN 09/15/24 09/15/24 History [Roxanol Oral Soln Conc 20MG/ML] Metoprolol Tartrate [Lopressor] 12.5 mg PO BID 09/15/24 09/15/24 History Phenobarbital 65mg/Ml 65 mg PO Q8HR PRN 09/15/24 09/15/24 History Sennosides/Docusate Sodium [Senna 1 tab PO HS PRN 09/15/24 09/15/24 History Plus 8.6-50 mg Tablet] bisacodyL [Dulcolax] 10 mg RECTAL Q72H PRN 09/15/24 09/15/24 History polyethylene glycoL 3350 [Miralax] 17 gm PO DAILY PRN 09/15/24 09/15/24 History predniSONE 10 mg PO DAILY 09/15/24 09/15/24 History Allergies Allergy/AdvReac Type Severity Reaction Status Date / Time No Known Allergies Allergy Verified 09/15/24 11:52 Physical Exam Vitals: Vital Signs Temp Pulse Pulse Resp BP BP Pulse Ox 09/15/24 15:13 97.8 F 118 H 12 117/77 09/15/24 10:58 97.4 F L 124 H 20 120/77 99 Intake and Output 09/15/24 09/15/24 09/15/24 06:59 14:59 22:59 Other: Weight 101.9 kg PHYSICAL EXAMINATION: Patient is lying in the bed. Tries to open his eyes with verbal stimuli. Nonc ommunicative. HEENT: Normocephalic. Neck is supple. Pupils reactive. Nostrils clear. Oral cavity is moist. Neck reveals no JVD, carotid bruits, or thyromegaly. CHEST EXAMINATION: Trachea is central. Symmetrical expansion. Bibasilar coarse breath sounds and crackles. CARDIAC: Normal S1, S2 with no gallops. No murmurs ABDOMEN: Soft. Bowel sounds normal. No organomegaly. No abdominal bruits. Extremities: reveal no edema. No clubbing or cyanosis Neurologically awake alert and oriented x 0. Skin: No rash or skin lesions. Psychiatric: Coperative. Could not be assisted completely Musculoskeletal: No joint swelling or deformity. Assessment and Plan Assessment: Severe restlessness while patient being on hospice care and could not be controlled with oral medications. Metastatic lung cancer. Patient is currently under hospice care. Coronary artery disease history of CABG and stent placement Hypertension COPD GERD History of chronic back pain Prior history of smoking CODE STATUS. Patient is under hospice care. Plan: Patient was given a dose of IV Dilaudid and IV Ativan was seem to improve his symptoms. Will be continued on IV Dilaudid 1 mg every 2 as needed along with Ativan and scopolamine patch. Continue with comfort measures. Family is at bedside. Hospice care team is also following.
[2024-09-15] MEDS: ATROPINE OPHTH SOLN 1% 5ML BTL SUBLINGUAL PRN (22:13)
[2024-09-15] MEDS: MORPHINE SULFATE 100 MG in SODIUM CHLORIDE 0.9% 90 ML IV SCH (22:58)
[2024-09-16] MEDS: LORazepam 1 MG/0.5 ML VIAL IV PRN ×2 (00:16→20:49)
[2024-09-16] MEDS: GLYCOPYRROLATE 0.2 MG/ML 2 ML VIAL IVP PRN (08:25)
[2024-09-16] MEDS: GLYCOPYRROLATE 0.2 MG/ML 2 ML VIAL IVP SCH (13:30)
--- NOTE | 2024-09-17 05:47 | P.PN ---
Subjective Progress Note Date: 09/16/24 . Patient is a 74-year-old male with a past medical history of metastatic lung cancer who is currently at hospice care at home, coronary artery disease status post CABG history, history of stent placement, hypertension, hypokalemia, prior history of smoking and other multiple medical problems was brought to the hospital due to complaints of restlessness for the past 1 week. Patient is under hospice care treatment with [facility] for metastatic lung cancer. As per the staff patient was given morphine, Ativan, without improvement in restlessness and extremely anxious. No fever no chills. Patient is currently on 6 L oxygen via nasal cannula. Patient cannot provide any history. Family is at bedside. He was given a dose of Dilaudid and Ativan IV in the ER. Review of systems: Unable to completely assess as patient is extremely restless with as needed Ativan Active Medications Acetaminophen (Acetaminophen Suppository 650 Mg Supp) 650 mg RECTAL Q4HR PRN PRN Reason: Fever and/or Mild Pain Atropine Sulfate (Atropine Ophth Soln 1% 5ml Btl) 2 drops SUBLINGUAL Q4HR PRN PRN Reason: Excess Secretions Last Admin: 09/16/24 23:09 Dose: 2 drops Glycopyrrolate (Glycopyrrolate 0.2 Mg/Ml 2 Ml Vial) 0.1 mg IVP Q6HR DEWEY Last Admin: 09/17/24 05:43 Dose: 0.1 mg Hydromorphone HCl (Hydromorphone 2 Mg/Ml 1 Ml Syringe) 1 mg IVP Q2HR PRN PRN Reason: Pain Last Admin: 09/15/24 17:01 Dose: 1 mg Morphine Sulfate 100 mg/ (Sodium Chloride) 100 mls @ 1 mls/hr IV .Q24H DEWEY; Protocol Last Admin: 09/17/24 01:10 Dose: 4 mg/hr, 4 mls/hr Lorazepam (Lorazepam 1 Mg/0.5 Ml Vial) 1 mg IV Q2H PRN PRN Reason: Anxiety Last Admin: 09/16/24 20:49 Dose: 1 mg Saliva Substitute (Dry Mouth [place] 59 [place]/59 Ml [place]) 1 spray MUCOUS MEM QID PRN PRN Reason: Dry Mouth Scopolamine (Scopolamine 1 Mg/72 Hr Patch) 1 patch TRANSDERM Q72H DEWEY Last Admin: 09/15/24 15:26 Dose: 1 patch Physical exam: Gen: This is a 74-year-old male who is awake, alert and oriented x 1-2, extremely anxious and restless on exam, attempting to get up to use the urinal, appears elderly, slightly jaundice HEENT: Head is atraumatic, normocephalic. Pupils equal, round. Sclerae is anicteric. NECK: Supple. No JVD. No lymphadenopathy. No thyromegaly. LUNGS: Diminished breath sounds bilaterally with audible crackles and wheezes and bronchial congestion noted. Lung sounds are extremely wet. Labored breathing at times with accessory muscle use noted HEART: Regular rate and rhythm. No murmur. ABDOMEN: Soft. Bowel sounds are present. No masses. No tenderness. EXTREMITIES: No pedal edema. No calf tenderness. NEUROLOGICAL: Patient is awake, alert and oriented x1-2. Diffusely weak Assessment: Severe restlessness while patient being on hospice care and could not be controlled with oral medications. Metastatic lung cancer. Patient is currently under hospice care. Coronary artery disease history of CABG and stent placement Hypertension COPD GERD History of chronic back pain Prior history of smoking No code. Patient is under hospice care. Plan: Patient was given a dose of IV Dilaudid and IV Ativan was seem to improve his symptoms. Will be continued on IV Dilaudid 1 mg every 2 as needed along with Ativan and scopolamine patch. Continue with comfort measures with [facility]. Patient is on morphine drip along with as needed Ativan, scopolamine and atropine for secretions Patient continues to be extremely restless and recommend increasing medications but also bed elevated every 2 hours. Patient extremely restless attempting to get up multiple times reporting he has to urinate and has been somewhat incontinent in the brief as well. Discussed with family and agreeable to placing indwelling Truong catheter as it was felt patient is possibly retaining. Per nursing staff over 700 output with Truong insertion. Will continue with Truong catheter at this time. Family is at bedside. The impression and plan of care has been dictated by Madeleine Monsalve, Nurse Practitioner as directed. Dr. Amparo MD I have performed a history and examination and MDM of this patient, discussed the same with the dictator, and agree with the dictator's assessment and plan as written ,documented as a scribe. Based on total visit time, I have performed more than 50% of the visit. Objective - Vital Signs Vital signs: Vital Signs Temp 97.8 F 09/15/24 15:13 Pulse 118 H 09/15/24 15:13 Resp 12 09/15/24 15:13 BP 117/77 09/15/24 15:13 Pulse Ox 99 09/15/24 10:58 FiO2 Intake & Output 09/15/24 09/16/24 09/16/24 18:59 06:59 18:59 Intake Total 0 1.483 16.133 Output Total 0 350 Balance 0 -348.517 16.133 Weight 101.9 kg Intake: Intake, IV Titration 0 1.483 16.133 Amount Morphine Sulfate 100 mg 0 1.483 16.133 In Sodium Chloride 0.9% 90 ml @ 1 MG/HR 1 mls/hr IV .Q24H [facility] Rx#: [id number] Output: Urine 0 350 Other: Voiding Method Diaper Diaper Urinal Diaper # Voids 0 # Bowel Movements 0
[2024-09-17] MEDS: DRY MOUTH SPRAY 59 SPRAY/59 ML SPRAY MUCOUS MEM PRN (20:55)
--- NOTE | 2024-09-18 05:47 | P.PN ---
Subjective Progress Note Date: 09/17/24 . Patient is a 74-year-old male with a past medical history of metastatic lung cancer who is currently at hospice care at home, coronary artery disease status post CABG history, history of stent placement, hypertension, hypokalemia, prior history of smoking and other multiple medical problems was brought to the hospital due to complaints of restlessness for the past 1 week. Patient is under hospice care treatment with [facility] for metastatic lung cancer. As per the staff patient was given morphine, Ativan, without improvement in restlessness and extremely anxious. No fever no chills. Patient is currently on 6 L oxygen via nasal cannula. Patient cannot provide any history. Family is at bedside. He was given a dose of Dilaudid and Ativan IV in the ER. 09/17/2024 Patient seen in follow-up today continues on morphine drip currently at 6 L of oxygen via nasal cannula. Morphine drip is maintained on 4 mL/h and is being titrated accordingly. Patient is currently resting and appears calm at the moment. Family reports he continues to have restlessness and anxiety but is being controlled by medication. Review of systems: Unable to completely assess as patient is maintained on morphine drip Active Medications Acetaminophen (Acetaminophen Suppository 650 Mg Supp) 650 mg RECTAL Q4HR PRN PRN Reason: Fever and/or Mild Pain Atropine Sulfate (Atropine Ophth Soln 1% 5ml Btl) 2 drops SUBLINGUAL Q4HR PRN PRN Reason: Excess Secretions Last Admin: 09/16/24 23:09 Dose: 2 drops Glycopyrrolate (Glycopyrrolate 0.2 Mg/Ml 2 Ml Vial) 0.1 mg IVP Q6HR DEWEY Last Admin: 09/17/24 05:43 Dose: 0.1 mg Hydromorphone HCl (Hydromorphone 2 Mg/Ml 1 Ml Syringe) 1 mg IVP Q2HR PRN PRN Reason: Pain Last Admin: 09/15/24 17:01 Dose: 1 mg Morphine Sulfate 100 mg/ (Sodium Chloride) 100 mls @ 1 mls/hr IV .Q24H DEWEY; Protocol Last Titration: 09/17/24 05:49 Dose: 5 mg/hr, 5 mls/hr Lorazepam (Lorazepam 1 Mg/0.5 Ml Vial) 1 mg IV Q2H PRN PRN Reason: Anxiety Last Admin: 09/16/24 20:49 Dose: 1 mg Saliva Substitute (Dry Mouth [place] 59 [place]/59 Ml [place]) 1 spray MUCOUS MEM QID PRN PRN Reason: Dry Mouth Scopolamine (Scopolamine 1 Mg/72 Hr Patch) 1 patch TRANSDERM Q72H DEWEY Last Admin: 09/15/24 15:26 Dose: 1 patch Physical exam: Gen: This is a 74-year-old male who is asleep, appears elderly, slightly jaundice HEENT: Head is atraumatic, normocephalic. Pupils equal, round. Sclerae is anicteric. NECK: Supple. No JVD. No lymphadenopathy. No thyromegaly. LUNGS: Diminished breath sounds bilaterally with audible crackles and wheezes and bronchial congestion noted. Lung sounds are extremely wet. Labored breathing at times with accessory muscle use noted HEART: Regular rate and rhythm. No murmur. ABDOMEN: Soft. Bowel sounds are present. No masses. No tenderness. EXTREMITIES: No pedal edema. No calf tenderness. NEUROLOGICAL: Patient is awake, alert and oriented x1-2. Diffusely weak Assessment: Severe restlessness while patient being on hospice care and could not be controlled with oral medications. Metastatic lung cancer. Patient is currently under hospice care. Coronary artery disease history of CABG and stent placement Hypertension COPD GERD History of chronic back pain Prior history of smoking No code. Patient is under hospice care. Plan: Patient is maintained on hospice care comfort measures and continues on morphine drip along with other supportive measures. Patient currently at 4 mL morphine and recommend to titrate accordingly and increase as needed. Ativan was changed to IV every 2 hours as needed Continue with comfort measures with [facility]. Continue indwelling Truong catheter for supportive care Family is at bedside. The impression and plan of care has been dictated by Madeleine Monsalve, Nurse Practitioner as directed. Dr. Amparo MD I have performed a history and examination and MDM of this patient, discussed the same with the dictator, and agree with the dictator's assessment and plan as written ,documented as a scribe. Based on total visit time, I have performed more than 50% of the visit. Objective - Vital Signs Vital signs: Vital Signs Temp 97.8 F 09/15/24 15:13 Pulse 118 H 09/15/24 15:13 Resp 12 09/15/24 15:13 BP 117/77 09/15/24 15:13 Pulse Ox 99 09/15/24 10:58 FiO2 Intake & Output 09/16/24 09/17/24 09/17/24 18:59 06:59 18:59 Intake Total 54.483 44.867 Output Total 1700 100 Balance -1645.517 -55.133 Intake: Intake, IV Titration 54.483 44.867 Amount Morphine Sulfate 100 mg 54.483 44.867 In Sodium Chloride 0.9% 90 ml @ 1 MG/HR 1 mls/hr IV .Q24H [facility] Rx#: [id number] Output: Urine 1700 100 Uretheral (Truong) 750 Other: Voiding Method Urinal Urinal Urinal Diaper Diaper Diaper
--- NOTE | 2024-09-19 06:21 | P.PN ---
Subjective Progress Note Date: 09/18/24 . Patient is a 74-year-old male with a past medical history of metastatic lung cancer who is currently at hospice care at home, coronary artery disease status post CABG history, history of stent placement, hypertension, hypokalemia, prior history of smoking and other multiple medical problems was brought to the hospital due to complaints of restlessness for the past 1 week. Patient is under hospice care treatment with [facility] care for metastatic lung cancer. As per the staff patient was given morphine, Ativan, without improvement in restlessness and extremely anxious. No fever no chills. Patient is currently on 6 L oxygen via nasal cannula. Patient cannot provide any history. Family is at bedside. He was given a dose of Dilaudid and Ativan IV in the ER. 09/17/2024 Patient seen in follow-up today continues on morphine drip currently at 6 L of oxygen via nasal cannula. Morphine drip is maintained on 4 mL/h and is being titrated accordingly. Patient is currently resting and appears calm at the moment. Family reports he continues to have restlessness and anxiety but is being controlled by medication. 09/18/2024 Patient is seen today with multiple family members present. Patient is sleeping currently and maintained on morphine drip at 8 mL/h. Continue supportive care. [facility] is following. Review of systems: Unable to completely assess as patient is maintained on morphine drip and lethargic Physical exam: Gen: This is a 74-year-old male who is asleep, appears elderly, pale HEENT: Head is atraumatic, normocephalic. Pupils equal, round. Sclerae is anicteric. NECK: Supple. No JVD. No lymphadenopathy. No thyromegaly. LUNGS: Diminished breath sounds bilaterally with audible crackles and wheezes and bronchial congestion noted. Lung sounds are extremely wet. Labored breathing at times but currently resting HEART: Regular rate and rhythm. No murmur. ABDOMEN: Soft. Bowel sounds are present. No masses. No tenderness. EXTREMITIES: No pedal edema. No calf tenderness. NEUROLOGICAL: Patient is awake, alert and oriented x1-2. Diffusely weak Assessment: Severe restlessness while patient being on hospice care and could not be controlled with oral medications. Currently on morphine drip Metastatic lung cancer. Patient is currently under hospice care. Coronary artery disease history of CABG and stent placement Hypertension COPD GERD History of chronic back pain Prior history of smoking No code. Patient is under hospice care. Plan: Patient is maintained on hospice care comfort measures and continues on morphine drip along with other supportive measures. Patient currently at 8 mL per hour morphine and recommend to titrate accordingly and increase as needed. Ativan was changed to IV every 2 hours as needed Continue with comfort measures with [facility]. Continue indwelling Truong catheter for supportive care The impression and plan of care has been dictated by Madeleine Monsalve, Nurse Practitioner as directed. Dr. Amparo MD I have performed a history and examination and MDM of this patient, discussed the same with the dictator, and agree with the dictator's assessment and plan as written ,documented as a scribe. Based on total visit time, I have performed more than 50% of the visit. Objective - Vital Signs Vital signs: Vital Signs Temp 97.8 F 09/15/24 15:13 Pulse 118 H 09/15/24 15:13 Resp 12 09/18/24 04:45 BP 117/77 09/15/24 15:13 Pulse Ox 99 09/15/24 10:58 FiO2 Intake & Output 09/17/24 09/18/24 09/18/24 18:59 06:59 18:59 Intake Total 40.583 86.500 Balance 40.583 86.500 Intake: Intake, IV Titration 40.583 86.500 Amount Morphine Sulfate 100 mg 40.583 86.500 In Sodium Chloride 0.9% 90 ml @ 1 MG/HR 1 mls/hr IV .Q24H [facility] Rx#: [id number] Other: Voiding Method Urinal Indwelling Catheter Diaper
--- NOTE | 2024-09-22 10:32 | P.DS ---
Providers Date of admission: 09/15/24 13:34 Expected date of discharge: 09/19/24 Attending physician: Kuldip Christensen Primary care physician: Stated None Hospital Course: Preliminary cause of Metastatic lung cancer Final diagnosis Severe restlessness while patient being on hospice care and could not be controlled with oral medications. Currently on morphine drip Metastatic lung cancer. Patient is currently under hospice care. Coronary artery disease history of CABG and stent placement Hypertension COPD GERD History of chronic back pain Prior history of smoking No code. Patient is under hospice care. Discharge disposition Patient has . According to nursing documentation, time of was 1812 on 09/19/2024. Patient was on [facility] GIP services, total time taken greater than 35 minutes Hospital course Patient is a 74-year-old male with a past medical history of metastatic lung cancer who is currently at hospice care at home, coronary artery disease status post CABG history, history of stent placement, hypertension, hypokalemia, prior history of smoking and other multiple medical problems was brought to the hospital due to complaints of restlessness for the past 1 week. Patient is under hospice care treatment with [facility] for metastatic lung cancer. As per the staff patient was given morphine, Ativan, without improvement in restlessness and extremely anxious. No fever no chills. Patient is currently on 6 L oxygen via nasal cannula. Patient cannot provide any history. Family is at bedside. He was given a dose of Dilaudid and Ativan IV in the ER. 09/17/2024 Patient seen in follow-up today continues on morphine drip currently at 6 L of oxygen via nasal cannula. Morphine drip is maintained on 4 mL/h and is being titrated accordingly. Patient is currently resting and appears calm at the moment. Family reports he continues to have restlessness and anxiety but is being controlled by medication. 09/18/2024 Patient is seen today with multiple family members present. Patient is sleeping currently and maintained on morphine drip at 8 mL/h. Continue supportive care. [facility] is following. 09/19/2024 Patient has . According to nursing documentation, time of was 1812 on 09/19/2024. Please refer to nursing notes and other documentation for further HPI. The impression and plan of care has been dictated by Madeleine Monsalve, Nurse Practitioner as directed. Dr. Amparo MD I have performed a history and examination and MDM of this patient, discussed the same with the dictator, and agree with the dictator's assessment and plan as written ,documented as a scribe. Based on total visit time, I have performed more than 50% of the visit. Plan - Discharge Summary Discharge Rx Participant: No New Discharge Prescriptions: No Action Hyoscyamine Sulfate [Levsin-Sl] 0.125 mg SL Q4H PRN PRN Reason: Secretions Haloperidol Oral Soln [Haldol Oral Soln] 10 mg SUBLINGUAL Q4H PRN PRN Reason: RESTLESSNESS/AGITATION Albuterol Nebulized [Ventolin Nebulized (Accuneb)] 1.25 mg INHALATION RT-TID Acetaminophen Suppository [Tylenol Suppository] 650 mg RECTAL Q6H PRN PRN Reason: Fever Sennosides/Docusate Sodium [Senna Plus 8.6-50 mg Tablet] 1 tab PO HS PRN PRN Reason: Constipation Phenobarbital 65mg/Ml 65 mg PO Q8HR PRN PRN Reason: RESTLESSNESS predniSONE 10 mg PO DAILY MORPHINE ORAL FERMIN CONC 20mg/mL [Roxanol Oral Soln Conc 20MG/ML] 10 - 20 mg PO Q4H PRN PRN Reason: PAIN/CECY polyethylene glycoL 3350 [Miralax] 17 gm PO DAILY PRN PRN Reason: Constipation Metoprolol Tartrate [Lopressor] 12.5 mg PO BID Ipratropium-Albuterol Nebulize [Duoneb 0.5 mg-3 mg/3 ml Soln] 3 ml INHALATION RT-Q4H PRN PRN Reason: Shortness Of Breath bisacodyL [Dulcolax] 10 mg RECTAL Q72H PRN PRN Reason: Constipation Discharge Medication List Acetaminophen Suppository [Tylenol Suppository] 650 mg RECTAL Q6H PRN 09/15/24 [History] Albuterol Nebulized [Ventolin Nebulized (Accuneb)] 1.25 mg INHALATION RT-TID 09/15/24 [History] Haloperidol Oral Soln [Haldol Oral Soln] 10 mg SUBLINGUAL Q4H PRN 09/15/24 [History] Hyoscyamine Sulfate [Levsin-Sl] 0.125 mg SL Q4H PRN 09/15/24 [History] Ipratropium-Albuterol Nebulize [Duoneb 0.5 mg-3 mg/3 ml Soln] 3 ml INHALATION RT-Q4H PRN 09/15/24 [History] MORPHINE ORAL FERMIN CONC 20mg/mL [Roxanol Oral Soln Conc 20MG/ML] 10 - 20 mg PO Q4H PRN 09/15/24 [History] Metoprolol Tartrate [Lopressor] 12.5 mg PO BID 09/15/24 [History] Phenobarbital 65mg/Ml 65 mg PO Q8HR PRN 09/15/24 [History] Sennosides/Docusate Sodium [Senna Plus 8.6-50 mg Tablet] 1 tab PO HS PRN 09/15/24 [History] bisacodyL [Dulcolax] 10 mg RECTAL Q72H PRN 09/15/24 [History] polyethylene glycoL 3350 [Miralax] 17 gm PO DAILY PRN 09/15/24 [History] predniSONE 10 mg PO DAILY 09/15/24 [History] Follow up Appointment(s)/Referral(s): None,Stated [Primary Care Provider] - 1-2 days Discharge Disposition: STILL PT- FOR INTERIM BILLING
== END 2024-09-19 20:27 | disposition still patient (30) | DRG 951 ==
LOC: EC 10:56 → 5NMEDONC 13:34
PROVIDERS: ADMIT Internal Medicine; ATTEND Internal Medicine
DX: Z51.5 Encounter for palliative care (principal); C79.9 Secondary malignant neoplasm of unspecified site; C34.90 Malignant neoplasm of unspecified part of unspecified bronchus or lung; J44.9 Chronic obstructive pulmonary disease, unspecified; I10 Essential (primary) hypertension; E78.5 Hyperlipidemia, unspecified; F41.9 Anxiety disorder, unspecified; I25.10 Atherosclerotic heart disease of native coronary artery without angina pectoris; K21.9 Gastro-esophageal reflux disease without esophagitis; Z79.01 Long term (current) use of anticoagulants; Z79.02 Long term (current) use of antithrombotics/antiplatelets; Z85.118 Personal history of other malignant neoplasm of bronchus and lung; Z87.891 Personal history of nicotine dependence; Z95.1 Presence of aortocoronary bypass graft; Z95.5 Presence of coronary angioplasty implant and graft
CPT/HCPCS: 96374; 96375; 99285